=== PATIENT | female | born 1950 | race Asian ===

== ENCOUNTER 2020-12-07 11:34 | Outpatient (REF) | payer MEDICARE, SELFPAY ==
[2020-12-07 11:54] LABS: MANUAL DIFF FLAG NO
[2020-12-07 12:08] LABS: Basophils Absolute Auto 0.1 X10*3/uL (0.0-0.2); Basophils Percent Auto 1.3 % (0-2); Eosinophils Absolute Auto 0.1 X10*3/uL (0.0-0.4); Eosinophils Percent Auto 1.3 % (0-4); Hematocrit 39.1 % (37.0-47.0); Hemoglobin 12.6 g/dl (12.0-16.0); Imm Gran Abs Auto 0.02 X10*3/uL (0.00-0.03); Imm Gran Pct Auto 0.4 % (0.0-0.4); Lymphocytes Percent Auto 18.9 % (20-40); Mean Corpuscular HGB Conc 32.2 g/dl (31.0-35.0); Mean Corpuscular Hemoglobin 32.1 pg (27.0-33.0); Mean Corpuscular Volume 99.7 fL (80.0-98.0); Mean Platelet Volume 9.3 fL (9.4-12.3); Monocytes Absolute Auto 0.5 X10*3/uL (0.1-1.2); Monocytes Percent Auto 8.8 % (2-11); Neutrophils Percent Auto 69.3 % (45-73); Platelet Count 457 X10*3/uL (160-400); Red Blood Count 3.92 X10*6/uL (4.20-5.50); Red Cell Distribution Width 15.2 % (11.0-16.0); White Blood Count 5.3 X10*3/uL (4.8-10.8)
[2020-12-07 12:51] LABS: Anion Gap 11 (12-20); Blood Urea Nitrogen 8 mg/dL (9-16); Calcium 9.2 mg/dL (8.4-10.2); Carbon Dioxide 27 mmol/L (22-29); Chloride 110 mmol/L (96-108); Estimated Glomerular Filt Rate > 60; Glucose Random 107 mg/dL (60-115); Sodium 144 mmol/L (135-145)
[2020-12-07 13:14] LABS: Thyroid Stimulating Hormone 0.44 uIU/mL (0.32-4.0)
== END 2020-12-07 11:35 | disposition home or self-care (01) ==
LOC: HO.LAB 11:34
PROVIDERS: PCP Internal Medicine; Visit Provider Internal Medicine
DX: Z00.00 Encounter for general adult medical examination without abnormal findings (principal); R51.9 Headache, unspecified
CPT/HCPCS: 36415; 80048; 84443; 85025

== ENCOUNTER 2021-06-14 10:21 | Inpatient (IN) | payer MEDICARE, MEDICAID, SELFPAY ==
[2021-06-14 10:29] VITALS: BP 133/90; BP 93/71; PULSE 77; PULSE 98; RESP 16; TEMP 36.9; O2SAT 97; BMI 22.6
[2021-06-14 11:00] VITALS: BP 93/71; PULSE 98; RESP 16; TEMP 36.9; O2SAT 97
--- NOTE | 2021-06-14 11:23 | ED_ITS ---
HPI - Psych General Chief Complaint: Psychiatric Symptoms Stated Complaint: CRISIS CLAUDIASI Time Seen by Provider: 06/14/21 11:23 Source: patient Mode of arrival: ambulatory Limitations: no limitations History of Present Illness HPI Narrative: patient is so depressed she wants to hang herself. her brother just . her husbands heart is very bad and it is only functioning at 15%. Patient thinks she is seeing a spirit coming out of the closet MD complaint: suicidal ideation and feels depressed Onset (ago): week(s) Duration: constant Associated psychiatric symptoms: depression Associated symptoms: denies other symptoms If self harm: admits thoughts of self harm Related Data Previous Rx's Medication Instructions Recorded mirtazapine 7.5 mg tablet 7.5 mg PO BEDTIME 30 days #30 tabs 06/20/21 naltrexone 50 mg tablet 50 mg PO DAILY 30 days #30 tabs 06/20/21 trazodone 50 mg tablet 50 mg PO BEDTIME PRN Insomnia 30 06/20/21 days #30 tabs lorazepam 0.5 mg tablet 0.5 mg PO BID PRN anxiety #60 tabs 07/01/21 Allergies Allergy/AdvReac Type Severity Reaction Status Date / Time No Known Allergies Allergy Verified 07/01/21 14:16 Review of Systems Constitutional: Constitutional: Reports no additional constitutional complaints Eyes: Eyes: Reports no additional eye complaints ENT: Denies dizziness Cardiovascular: Cardiovascular: Reports no additional cardiovascular complaints Respiratory: Respiratory: Reports as per HPI Gastrointestinal: Gastrointestinal: Reports no additional gastrointestinal complaints Genitourinary: Genitourinary: Reports no additional female genitourinary complaints Musculoskeletal: Musculoskeletal: Reports no additional musculoskeletal complaints Integumentary/Breasts: Skin/Breast: Denies rash Neurologic: Reports system reviewed and no additional complaints, except as documented, Denies dizziness and Denies Sensory deficit (Neuro) Psychiatric: Psychiatric: Denies anxiety PMFSH Past Medical History Medical History (Updated 07/01/21 @ 14:33 by Montez Loya MD) Depression, acute Family History Family History (Updated 07/01/21 @ 14:16 by ELY Knight) Other Mental health disorder Social History Social History Household Members: Spouse Housing: House Do you presently have visiting nurse or other home services: No Alcohol intake: current Alcohol intake frequency: other Alcohol type: hard liquor Patient Tobacco Use Status: Never used Tobacco e-Cigarette/Vaping Use: Never Used Second Hand Smoke Exposure: No Substance Use Type: Caffiene service: No Current occupational status: retired Current occupational exposures/hazards: No Sexual orientation: Straight/Heterosexual Cognitive needs: No Hearing needs: No Vision needs: No Physical Exam Vital Signs: Vital Signs: Last Vital Signs Temp 97 F 06/20/21 07:20 Pulse 66 06/20/21 07:20 Resp 16 06/20/21 07:20 BP 127/70 06/20/21 07:20 Pulse Ox 98 06/20/21 07:20 O2 Del Method 06/20/21 07:20 BMI result Body Mass Index 22.6 Const: General: healthy appearing Nutritional Appearance: average body habitus Orientation/consciousness: oriented to person and patient oriented x3 Limitations: no limitations HEENT: Head: Yes normal to inspection Ears: external ears normal General nose exam: Normal external nose present Mouth: Normal oral and palatal mucosa present and oropharynx normal Throat: Yes posterior oropharynx normal Eyes: General: appearance normal, both eyes and all related structures Neck: Other: supple Neck: Yes normal visual inspection Chest: Chest palpation & inspection: normal inspection of the chest Resp: Auscultation: clear to auscultation bilaterally Cardio: Jugular venous distension: no JVD Rate: regular rate Rhythm: regular rhythm Heart sounds: S1 normal heart sound present and S2 normal heart sound present GI: Inspection: Yes normal to inspection Palpation (GI): Soft to palpation, nontender and No hepatosplenomegaly present Auscultation: normal bowel sounds : General: Yes no CVA tenderness Back/Spine/Pelvis: Back: no CVA tenderness Skin: General skin exam: no rashes or lesions noted Neuro: General: oriented to person and patient oriented x3 Cranial nerves: Yes CN's II-XII intact bilaterally Motor exam (neuro): 5/5 motor strength present throughout Sensory Exam: No Sensory deficit (Neuro) Extrem: General: Yes normal to inspection Psych: Appearance: grossly normal Course Reevaluation(s) Reevaluation #1: Patient placed in physician observation at 3:40pm The indication for observation is that the patient needs more time to see if her depression improves or she will need to be admitted. At this time the patient is well developed well nourished, lungs clear, CV RRR, abd nontender, neuro is intact Time: 15:40 MDM - Psych Lab Data Result diagrams: 06/14/21 11:42 06/14/21 11:42 Labs: Lab Results 06/14/21 06/14/21 06/14/21 Range/Units 11:42 11:42 11:42 WBC 3.8 L (4.8-10.8) X10*3/uL RBC 4.66 (4.20-5.50) X10*6/uL Hgb 15.0 (12.0-16.0) g/dl Hct 44.1 (37.0-47.0) % MCV 94.6 (80.0-98.0) fL MCH 32.2 (27.0-33.0) pg MCHC 34.0 (31.0-35.0) g/dl RDW 13.8 (11.0-16.0) % Plt Count 285 D (160-400) X10*3/uL MPV 9.6 (9.4-12.3) fL Immature Gran % (Auto) 0.3 (0.0-0.4) % Neut % (Auto) 47.1 (45-73) % Lymph % (Auto) 36.0 (20-40) % [place] % (Auto) 10.5 (2-11) % Eos % (Auto) 4.5 H (0-4) % Baso % (Auto) 1.6 (0-2) % Lymph # (Auto) 1.4 (1.2-4.9) X10*3/uL [place] # (Auto) 0.4 (0.1-1.2) X10*3/uL Eos # (Auto) 0.2 (0.0-0.4) X10*3/uL Baso # (Auto) 0.1 (0.0-0.2) X10*3/uL Abs Immat Gran (auto) 0.01 (0.00-0.03) X10*3/uL Absolute Neuts (auto) 1.8 L (2.0-8.3) x10*3/uL Absolute Nucleated RBC 0.000 (0.0-0.012) X10*3/uL Nucleated RBC % (auto) 0.0 (0.0-0.2) /100WBC Sodium 141 (135-145) mmol/L Potassium 4.5 (3.3-5.1) mmol/L Chloride 102 (96-108) mmol/L Carbon Dioxide 27 (22-29) mmol/L Anion Gap 17 (12-20) BUN 5 L (9-16) mg/dL Creatinine 0.85 (0.5-1.4) mg/dL Estim Creat Clear Calc 50.9 Estimated GFR > 60 Random Glucose 107 (60-115) mg/dL Calcium 9.6 (8.4-10.2) mg/dL Total Bilirubin 0.3 (0.0-1.0) mg/dL AST 114 H (5-31) U/L ALT 66 H (0-31) U/L Alkaline Phosphatase 80 (39-117) U/L Total Protein 7.9 (6.5-8.0) g/dL Albumin 4.1 (3.5-5.0) g/dL Salicylates < 5.0 L (15-30) mg/dL Urine Opiates Screen (Not Detect) Urine Fentanyl Screen (Not Detect) Acetaminophen < 1 (<30) mcg/mL Ur Barbiturates Screen (Not Detect) Ur Phencyclidine Scrn (Not Detect) Ur Amphetamines Screen (Not Detect) U Benzodiazepines Scrn (Not Detect) Urine Cocaine Screen (Not Detect) U Marijuana (THC) Screen (Not Detect) Ethyl Alcohol 208 mg/dL COVID-19 (CÉSAR) (Negative) COVID-19 Clin Com 06/14/21 06/14/21 Range/Units 13:56 20:49 WBC (4.8-10.8) X10*3/uL RBC (4.20-5.50) X10*6/uL Hgb (12.0-16.0) g/dl Hct (37.0-47.0) % MCV (80.0-98.0) fL MCH (27.0-33.0) pg MCHC (31.0-35.0) g/dl RDW (11.0-16.0) % Plt Count (160-400) X10*3/uL MPV (9.4-12.3) fL Immature Gran % (Auto) (0.0-0.4) % Neut % (Auto) (45-73) % Lymph % (Auto) (20-40) % [place] % (Auto) (2-11) % Eos % (Auto) (0-4) % Baso % (Auto) (0-2) % Lymph # (Auto) (1.2-4.9) X10*3/uL [place] # (Auto) (0.1-1.2) X10*3/uL Eos # (Auto) (0.0-0.4) X10*3/uL Baso # (Auto) (0.0-0.2) X10*3/uL Abs Immat Gran (auto) (0.00-0.03) X10*3/uL Absolute Neuts (auto) (2.0-8.3) x10*3/uL Absolute Nucleated RBC (0.0-0.012) X10*3/uL Nucleated RBC % (auto) (0.0-0.2) /100WBC Sodium (135-145) mmol/L Potassium (3.3-5.1) mmol/L Chloride (96-108) mmol/L Carbon Dioxide (22-29) mmol/L Anion Gap (12-20) BUN (9-16) mg/dL Creatinine (0.5-1.4) mg/dL Estim Creat Clear Calc Estimated GFR Random Glucose (60-115) mg/dL Calcium (8.4-10.2) mg/dL Total Bilirubin (0.0-1.0) mg/dL AST (5-31) U/L ALT (0-31) U/L Alkaline Phosphatase (39-117) U/L Total Protein (6.5-8.0) g/dL Albumin (3.5-5.0) g/dL Salicylates (15-30) mg/dL Urine Opiates Screen Not Detected (Not Detect) Urine Fentanyl Screen Not Detected (Not Detect) Acetaminophen (<30) mcg/mL Ur Barbiturates Screen Not Detected (Not Detect) Ur Phencyclidine Scrn Not Detected (Not Detect) Ur Amphetamines Screen Not Detected (Not Detect) U Benzodiazepines Scrn Not Detected (Not Detect) Urine Cocaine Screen Not Detected (Not Detect) U Marijuana (THC) Screen Not Detected (Not Detect) Ethyl Alcohol mg/dL COVID-19 (CÉSAR) Negative (Negative) COVID-19 Clin Com See Note Discharge Plan Discharge Clinical Impression: Depression Patient Disposition: Admitted As Inpatient Interventions: Admission Worksheet (ED) Last Done: 06/14/21 21:50 Discharge Date/Time: 06/14/21 21:51
[2021-06-14 11:47] LABS: MANUAL DIFF FLAG NO
[2021-06-14 11:51] LABS: Basophils Absolute Auto 0.1 X10*3/uL (0.0-0.2); Basophils Percent Auto 1.6 % (0-2); Eosinophils Absolute Auto 0.2 X10*3/uL (0.0-0.4); Eosinophils Percent Auto 4.5 % (0-4); Hematocrit 44.1 % (37.0-47.0); Imm Gran Abs Auto 0.01 X10*3/uL (0.00-0.03); Imm Gran Pct Auto 0.3 % (0.0-0.4); Lymphocytes Absolute Auto 1.4 X10*3/uL (1.2-4.9); Mean Corpuscular Hemoglobin 32.2 pg (27.0-33.0); Mean Corpuscular Volume 94.6 fL (80.0-98.0); Mean Platelet Volume 9.6 fL (9.4-12.3); Monocytes Absolute Auto 0.4 X10*3/uL (0.1-1.2); Monocytes Percent Auto 10.5 % (2-11); Neutrophils Absolute Auto 1.8 x10*3/uL (2.0-8.3); Neutrophils Percent Auto 47.1 % (45-73); Platelet Count 285 X10*3/uL (160-400); Red Blood Count 4.66 X10*6/uL (4.20-5.50); Red Cell Distribution Width 13.8 % (11.0-16.0); White Blood Count 3.8 X10*3/uL (4.8-10.8)
--- NOTE | 2021-06-14 11:54 | PC.NURSE ---
Patient reports she has never drank alcohol until recently. She states she now drinks every day to make her depression better . The patient did not state how much she drinks daily but reports she drinks champagne daily.
[2021-06-14 12:01] LABS: Ethanol 208 mg/dL
[2021-06-14 12:07] LABS: Acetaminophen LAB < 1 mcg/mL (<30); Alanine Aminotransferase 66 U/L (0-31); Albumin Level 4.1 g/dL (3.5-5.0); Alkaline Phosphatase 80 U/L (39-117); Anion Gap 17 (12-20); Aspartate Amino Transferase 114 U/L (5-31); Bilirubin Total 0.3 mg/dL (0.0-1.0); Blood Urea Nitrogen 5 mg/dL (9-16); Calcium 9.6 mg/dL (8.4-10.2); Carbon Dioxide 27 mmol/L (22-29); Chloride 102 mmol/L (96-108); Creatinine Clr Calc Pharmacy 50.9; Estimated Glomerular Filt Rate > 60; Glucose Random 107 mg/dL (60-115); Potassium 4.5 mmol/L (3.3-5.1); Salicylate < 5.0 mg/dL (15-30); Sodium 141 mmol/L (135-145); Total Protein 7.9 g/dL (6.5-8.0)
[2021-06-14 14:21] LABS: Amphetamine Screen Urine Not Detected (Not Detect); Barbiturates, Urine Not Detected (Not Detect); Benzodiazepines Screen Urine Not Detected (Not Detect); Cannabinoid Screen Urine Not Detected (Not Detect); Cocaine Screen Urine Not Detected (Not Detect); Fentanyl, urine Not Detected (Not Detect); Opiate Screen Urine Not Detected (Not Detect); Phencyclidine Screen Urine Not Detected (Not Detect)
[2021-06-14 16:45] VITALS: BP 135/79; PULSE 99; RESP 19; TEMP 37.1; O2SAT 96
--- NOTE | 2021-06-14 17:53 | MHC.CARE ---
After speaking with pt's , pt is being placed on a section 12a as he reports significant safety concerns and that pt has been making statements about hanging herself. He is advocating for pt to get treatment at this time.
[2021-06-14] MEDS: LORazepam 1 MG TABLET 2 MG PO (20:50)
[2021-06-14 21:09] LABS: COVID-19 Test Negative (Negative)
[2021-06-14 23:16] VITALS: BP 159/104; PULSE 95; RESP 18; TEMP 36.7; O2SAT 97
[2021-06-14 23:21] VITALS: BMI 21.9
--- NOTE | 2021-06-15 02:51 | PC.ADMIT ---
71 year old [place] female was admitted from the [facility] ED for Depression, secondary to making Suicidal statements on a recorded line. 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 She reported intermittent SI with various plans and reported that she wanted to be in a casket. Pt arrived on the unit via wheel chair accompanied by security at 21:20. Pt signed a CV and April Castro was notified of the admission, put in the transfer orders. Nurse to Nurse was completed prior to admission.Upon admission, pt denied SI, Pain and said she feels safe here. Pt is A & O x4, has no medical History. Skin intact, warm and dry, no open areas or edema noted. Pt has a small bruise on the right antecubital area, post IV site. Per pt report, she wears eye glasses but were not in her possession. Pt signed all admission paperwork and was cooperative with the admission process. Treatment plan was initiated.
[2021-06-15 07:20] VITALS: BP 128/89; PULSE 96; RESP 16; TEMP 36.6; O2SAT 99
[2021-06-15 08:19] LABS: Cholesterol 229 mg/dL; HDL Cholesterol 67 mg/dL; LDL Cholesterol Calculated 147 mg/dl; Magnesium 1.8 mg/dL (1.6-2.6); Triglycerides 78 mg/dL
[2021-06-15 08:32] LABS: Estimated Average Glucose 105 mg/dL; Hemoglobin A1c % 5.3 %
[2021-06-15 08:40] LABS: Free T4 (Free Thyroxine) 1.49 ng/dL (0.71-1.85); Thyroid Stimulating Hormone 0.65 uIU/mL (0.32-4.0)
[2021-06-15 09:06] LABS: Folate 11.8 ng/mL (> or = 4.0); Vitamin B12 443 pg/mL (200-900)
--- NOTE | 2021-06-15 13:21 | HO.PSYADMNOT ---
HPI Date of Service: 06/15/21 Chief Complaint: Depression,SI Sources of Information: patient interviewed, chart reviewed and crisis/core team assessment reviewed HPI Subjective Notes: [place] Warning and Conditional Voluntary Narrative: The patient has 71-year-old patient female from [facility], , mother of 2 adult children, living with her , referred from the emergency room for suicidal ideation. The patient reported that she has been feeling depressed for several months after her was very sick and impaired and she became the primary caregiver. She complained of depressed mood, and only a, lack of energy, feelings of hopelessness and worthlessness. She also admitted that she has been drinking more alcohol than usual but she denies withdrawal symptoms or cravings at this moment. The day of the admission to the emergency room, adept specimen collector called her and she was very dysphoric, she also admitted that she was intoxicated with alcohol and she verbalized suicidal ideation. The depth specimen collector called 911, EMS was sent to her home and she was brought into this facility for assessment. The crisis team checked her, her blood alcohollevel was over 200 mg g per dL. On interview, the patient reports that she feels overwhelmed she adamantly denies psychotic symptoms and she is able to contract for safety in the facility. She has never been admitted into the hospital for psychiatric reasons before. Past Psychiatric History: Denies prior contact, her primary care physician refer her to outpatient services Medical Evaluation Reviewed: Yes [facility] Medical History Anxiety Depression, acute Family History: denies Social History: the patient is , she is an immigrant from [facility], she has 2 adult children. She lives with her and she has become the primary caregiver. Substance History: The patient reported that she started drinking alcohol just recently. She denies other drugs. She denies history of detox or rehabs Trauma History: refused to elaborate Diagnostics Vital Signs (24Hr): Vital Signs - 24 hr 06/14/21 16:45 06/14/21 23:16 06/15/21 07:20 Temperature 98.8 F 98.1 F 97.8 F Pulse Rate 99 95 96 Respiratory Rate 19 18 16 Blood Pressure 135/79 159/104 H 128/89 Pulse Oximetry 96 97 99 BMI result Body Mass Index 21.9 Labs Results: 06/14/21 11:42 06/14/21 11:42 Labs: Laboratory Results - last 48 hr 06/14/21 06/14/21 06/14/21 11:42 11:42 11:42 WBC 3.8 L RBC 4.66 Hgb 15.0 Hct 44.1 MCV 94.6 MCH 32.2 MCHC 34.0 RDW 13.8 Plt Count 285 D MPV 9.6 Immature Gran % (Auto) 0.3 Neut % (Auto) 47.1 Lymph % (Auto) 36.0 [place] % (Auto) 10.5 Eos % (Auto) 4.5 H Baso % (Auto) 1.6 Lymph # (Auto) 1.4 [place] # (Auto) 0.4 Eos # (Auto) 0.2 Baso # (Auto) 0.1 Abs Immat Gran (auto) 0.01 Absolute Neuts (auto) 1.8 L Absolute Nucleated RBC 0.000 Nucleated RBC % (auto) 0.0 Sodium 141 Potassium 4.5 Chloride 102 Carbon Dioxide 27 Anion Gap 17 BUN 5 L Creatinine 0.85 Estim Creat Clear Calc 50.9 Estimated GFR > 60 Random Glucose 107 Estimat Average Glucose Hemoglobin A1c % Calcium 9.6 Magnesium Total Bilirubin 0.3 AST 114 H ALT 66 H Alkaline Phosphatase 80 Total Protein 7.9 Albumin 4.1 Triglycerides Cholesterol LDL Cholesterol, Calc HDL Cholesterol Vitamin B12 Folate TSH Free T4 Salicylates < 5.0 L Urine Opiates Screen Urine Fentanyl Screen Acetaminophen < 1 Ur Barbiturates Screen Ur Phencyclidine Scrn Ur Amphetamines Screen U Benzodiazepines Scrn Urine Cocaine Screen U Marijuana (THC) Screen Ethyl Alcohol 208 COVID-19 (CÉSAR) COVID-19 Clin Com 06/14/21 06/14/21 06/15/21 13:56 20:49 07:50 WBC RBC Hgb Hct MCV MCH MCHC RDW Plt Count MPV Immature Gran % (Auto) Neut % (Auto) Lymph % (Auto) [place] % (Auto) Eos % (Auto) Baso % (Auto) Lymph # (Auto) [place] # (Auto) Eos # (Auto) Baso # (Auto) Abs Immat Gran (auto) Absolute Neuts (auto) Absolute Nucleated RBC Nucleated RBC % (auto) Sodium Potassium Chloride Carbon Dioxide Anion Gap BUN Creatinine Estim Creat Clear Calc Estimated GFR Random Glucose Estimat Average Glucose 105 Hemoglobin A1c % 5.3 Calcium Magnesium Total Bilirubin AST ALT Alkaline Phosphatase Total Protein Albumin Triglycerides Cholesterol LDL Cholesterol, Calc HDL Cholesterol Vitamin B12 Folate TSH Free T4 Salicylates Urine Opiates Screen Not Detected Urine Fentanyl Screen Not Detected Acetaminophen Ur Barbiturates Screen Not Detected Ur Phencyclidine Scrn Not Detected Ur Amphetamines Screen Not Detected U Benzodiazepines Scrn Not Detected Urine Cocaine Screen Not Detected U Marijuana (THC) Screen Not Detected Ethyl Alcohol COVID-19 (CÉSAR) Negative COVID-19 Clin Com See Note 06/15/21 06/15/21 07:50 07:50 WBC RBC Hgb Hct MCV MCH MCHC RDW Plt Count MPV Immature Gran % (Auto) Neut % (Auto) Lymph % (Auto) [place] % (Auto) Eos % (Auto) Baso % (Auto) Lymph # (Auto) [place] # (Auto) Eos # (Auto) Baso # (Auto) Abs Immat Gran (auto) Absolute Neuts (auto) Absolute Nucleated RBC Nucleated RBC % (auto) Sodium Potassium Chloride Carbon Dioxide Anion Gap BUN Creatinine Estim Creat Clear Calc Estimated GFR Random Glucose Estimat Average Glucose Hemoglobin A1c % Calcium Magnesium 1.8 Total Bilirubin AST ALT Alkaline Phosphatase Total Protein Albumin Triglycerides 78 Cholesterol 229 LDL Cholesterol, Calc 147 HDL Cholesterol 67 Vitamin B12 443 Folate 11.8 TSH 0.65 Free T4 1.49 Salicylates Urine Opiates Screen Urine Fentanyl Screen Acetaminophen Ur Barbiturates Screen Ur Phencyclidine Scrn Ur Amphetamines Screen U Benzodiazepines Scrn Urine Cocaine Screen U Marijuana (THC) Screen Ethyl Alcohol COVID-19 (CÉSAR) COVID-19 Clin Com Meds/Allergies Meds Home Medications Acetaminophen (Acetaminophen 325 Mg Tablet) 650 mg PO Q6H PRN PRN Reason: Headache/Pain Mild Scale (1-3) Al Hydroxide/Mg Hydroxide (Magnesium Hydrox/Alum Hydrox 30 Ml Oral.Susp) 30 ml PO Q6H PRN PRN Reason: Heartburn/Nausea Hydroxyzine HCl (Hydroxyzine Hcl 25 Mg Tablet) 25 mg PO Q6H PRN PRN Reason: Anxiety Magnesium Hydroxide (Milk Of Magnesia 30 Ml Oral.Susp) 30 ml PO DAILY PRN PRN Reason: Constipation Trazodone HCl (Trazodone Hcl 50 Mg Tablet) 50 mg PO BEDTIME PRN PRN Reason: Insomnia Allergies Allergies Allergy/AdvReac Type Severity Reaction Status Date / Time No Known Allergies Allergy Verified 05/03/21 10:21 Mental Status Exam Mental Status Exam Patient Appearance: Appropriate Patient Orientation: Person, Place and Situation Level of Consciousness: Awake Patient Behavior: Cooperative Mood Description: Withdrawn and Depressed Affect Description: Constricted Patient Cognition Impaired: No Ability to Follow Directions: Good Speech Pattern: Clear Hallucinations: None Delusions: Not Present Thought Process: Linear Thought Content: positive for [place], positive for Goal Oriented and positive for Poverty of Content Judgement: Fair Assessment & Plan Assessment & Plan (1) Depression: Status: Acute Code(s): F32.A - Depression, unspecified (2) Alcohol use disorder, moderate, dependence: Status: Acute Code(s): F10.20 - Alcohol dependence, uncomplicated Plan the patient is an female, , with a long history of anxiety depression with a recent concomitant use abuse of alcohol who was admitted into this facility for suicidal ideation in the context of several psychosocial stressors such as financial constraints and being the primary caregiver her who is very sick. Plan 1. Gather collateral information. 2. Follow results of blood work. 3. Start Remeron 7.5 mg p.o. q.h.s. to target anxiety, depression and insomnia. Patient educated on: diagnosis, substance abuse and therapeutic strategies Informed Consent: understands Reason for continued inpatient stay Substantial Risk for: harm to self, inability to function, rapid decompensation and med/psych decompensation
[2021-06-15 19:30] VITALS: BP 161/74; PULSE 89; RESP 18; TEMP 36.4; O2SAT 99
[2021-06-15] MEDS: Mirtazapine 7.5 MG TABLET PO (20:16)
[2021-06-15] MEDS: traZODone HCL 50 MG TABLET PO (20:47)
[2021-06-16 07:00] VITALS: BMI 21.9
[2021-06-16 07:10] VITALS: BP 125/88; PULSE 84; RESP 16; TEMP 36.8; O2SAT 99
[2021-06-16] MEDS: hydrOXYzine HCL 25 MG TABLET PO (12:16)
--- NOTE | 2021-06-16 14:48 | P.PNPSI_ITS ---
Subjective Subjective Date of Service: 06/16/21 Reason For Visit: Depression,SI Subjective Notes: 3 Day Interim History: The nursing staff reported the patient is and three day notice since she was discharged tomorrow. The staff explained her about a three day notice and her implications. On interview the patient minimized her alcohol use disorder. She denies side effects Mental Status Exam Mental Status Exam Patient Appearance: Well Grooomed Patient Orientation: Person, Place and Situation Level of Consciousness: Awake Patient Behavior: Cooperative and Suspicious Mood Description: Constricted Affect Description: Calm Patient Cognition Impaired: No Ability to Follow Directions: Good Speech Pattern: Clear Hallucinations: None Delusions: Not Present Thought Process: Linear Thought Content: positive for Circumstantial Judgement: Fair Diagnostics Vital Signs (24Hr): Vital Signs - 24 hr 06/15/21 19:30 06/16/21 07:10 Temperature 97.5 F 98.2 F Pulse Rate 89 84 Respiratory Rate 18 16 Blood Pressure 161/74 H 125/88 Pulse Oximetry 99 99 BMI result Body Mass Index 21.9 Labs Results: 06/14/21 11:42 06/14/21 11:42 Labs: Laboratory Results - last 48 hr 06/14/21 06/15/21 06/15/21 20:49 07:50 07:50 Estimat Average Glucose 105 Hemoglobin A1c % 5.3 Magnesium 1.8 Triglycerides 78 Cholesterol 229 LDL Cholesterol, Calc 147 HDL Cholesterol 67 Vitamin B12 Folate TSH 0.65 Free T4 1.49 COVID-19 (CÉSAR) Negative COVID-19 Clin Com See Note 06/15/21 07:50 Estimat Average Glucose Hemoglobin A1c % Magnesium Triglycerides Cholesterol LDL Cholesterol, Calc HDL Cholesterol Vitamin B12 443 Folate 11.8 TSH Free T4 COVID-19 (CÉSAR) COVID-19 Clin Com Medications Medications Current Medications Acetaminophen (Acetaminophen 325 Mg Tablet) 650 mg PO Q6H PRN PRN Reason: Headache/Pain Mild Scale (1-3) Al Hydroxide/Mg Hydroxide (Magnesium Hydrox/Alum Hydrox 30 Ml Oral.Susp) 30 ml PO Q6H PRN PRN Reason: Heartburn/Nausea Hydroxyzine HCl (Hydroxyzine Hcl 25 Mg Tablet) 25 mg PO Q6H PRN PRN Reason: Anxiety Last Admin: 06/16/21 12:16 Dose: 25 mg Documented by: Magnesium Hydroxide (Milk Of Magnesia 30 Ml Oral.Susp) 30 ml PO DAILY PRN PRN Reason: Constipation Mirtazapine (Mirtazapine 7.5 Mg Tablet) 7.5 mg PO BEDTIME DAV Last Admin: 06/15/21 20:16 Dose: 7.5 mg Documented by: Naltrexone HCl (Naltrexone Hcl 50 Mg Tablet) 50 mg PO DAILY DAV Trazodone HCl (Trazodone Hcl 50 Mg Tablet) 50 mg PO BEDTIME PRN PRN Reason: Insomnia Last Admin: 06/15/21 20:47 Dose: 50 mg Documented by: Allergies Allergies Allergy/AdvReac Type Severity Reaction Status Date / Time No Known Allergies Allergy Verified 05/03/21 10:21 Assessment & Plan Assessment & Plan (1) Depression: Status: Acute Code(s): F32.A - Depression, unspecified (2) Alcohol use disorder, moderate, dependence: Status: Acute Code(s): F10.20 - Alcohol dependence, uncomplicated Plan the patient is an female, , with a long history of anxiety de pression with a recent concomitant use abuse of alcohol who was admitted into this facility for suicidal ideation in the context of several psychosocial stressors such as financial constraints and being the primary caregiver her who is very sick. Plan 1. Gather collateral information. 2. Follow results of blood work. 3. Start Remeron 7.5 mg p.o. q.h.s. to target anxiety, depression and insomnia. 4. Start naltrexone I spent ___20___ minutes with the patient and/or on the patient floor today, greater than?50% of which was spent counseling/coordinating care. Reason for contiued inpatient stay Substantial Risk for: inability to function, rapid decompensation and med/psych decompensation
[2021-06-16 18:00] VITALS: BP 133/87; PULSE 87; RESP 16; TEMP 36.7; O2SAT 97
[2021-06-16] MEDS: Mirtazapine 7.5 MG TABLET PO (20:45)
[2021-06-16] MEDS: traZODone HCL 50 MG TABLET PO (21:28)
[2021-06-17 08:00] VITALS: BP 130/78; PULSE 85; RESP 18; TEMP 36.2; O2SAT 99
[2021-06-17] MEDS: Naltrexone HCl 50 MG TABLET PO (08:33)
--- NOTE | 2021-06-17 10:58 | P.PNPSI_ITS ---
Subjective Subjective Date of Service: 06/17/21 Reason For Visit: Depression,SI Subjective Notes: Conditional Voluntary Interim History: The nursing staff reported the patient gives conflictual reports. Yesterday she complained of feeling very well and she needs to help her but she reported to the staff that she was feeling very sad and overwhelmed with the help that she has to provide to her . On interview, the patient minimized her consumption of alcohol. The licensed master social worker has arrange a family meeting for early next week before discharge. Medication Compliance: Yes Review of Systems Acute medical concerns: No Medical Review of Systems: unchanged Mental Status Exam Mental Status Exam Patient Appearance: Appropriate Patient Orientation: Person and Situation Level of Consciousness: Awake and Alert Patient Behavior: Cooperative Mood Description: Calm Affect Description: Constricted Patient Cognition Impaired: No Ability to Follow Directions: Good Speech Pattern: Clear Hallucinations: None Delusions: Not Present Thought Process: Distracted and Evasive Thought Content: positive for Circumstantial Judgement: Fair Diagnostics Vital Signs (24Hr): Vital Signs - 24 hr 06/16/21 18:00 Temperature 98.1 F Pulse Rate 87 Respiratory Rate 16 Blood Pressure 133/87 Pulse Oximetry 97 BMI result Body Mass Index 21.9 Labs Results: 06/14/21 11:42 06/14/21 11:42 Medications Medications Current Medications Acetaminophen (Acetaminophen 325 Mg Tablet) 650 mg PO Q6H PRN PRN Reason: Headache/Pain Mild Scale (1-3) Al Hydroxide/Mg Hydroxide (Magnesium Hydrox/Alum Hydrox 30 Ml Oral.Susp) 30 ml PO Q6H PRN PRN Reason: Heartburn/Nausea Hydroxyzine HCl (Hydroxyzine Hcl 25 Mg Tablet) 25 mg PO Q6H PRN PRN Reason: Anxiety Last Admin: 06/16/21 12:16 Dose: 25 mg Documented by: Magnesium Hydroxide (Milk Of Magnesia 30 Ml Oral.Susp) 30 ml PO DAILY PRN PRN Reason: Constipation Mirtazapine (Mirtazapine 7.5 Mg Tablet) 7.5 mg PO BEDTIME DAV Last Admin: 06/16/21 20:45 Dose: 7.5 mg Documented by: Naltrexone HCl (Naltrexone Hcl 50 Mg Tablet) 50 mg PO DAILY DAV Last Admin: 06/17/21 08:33 Dose: 50 mg Documented by: Trazodone HCl (Trazodone Hcl 50 Mg Tablet) 50 mg PO BEDTIME PRN PRN Reason: Insomnia Last Admin: 06/16/21 21:28 Dose: 50 mg Documented by: Allergies Allergies Allergy/AdvReac Type Severity Reaction Status Date / Time No Known Allergies Allergy Verified 05/03/21 10:21 Assessment & Plan Assessment & Plan (1) Depression: Status: Acute Code(s): F32.A - Depression, unspecified (2) Alcohol use disorder, moderate, dependence: Status: Acute Code(s): F10.20 - Alcohol dependence, uncomplicated Plan the patient is an female, , with a long history of anxiety depression with a recent concomitant use abuse of alcohol who was admitted into this facility for suicidal ideation in the context of several psychosocial stressors such as financial constraints and being the primary caregiver her who is very sick. Plan 1. Gather collateral information. 2. Follow results of blood work, no changes 3. Continue same treatment I spent ___20___ minutes with the patient and/or on the patient floor today, greater than?50% of which was spent counseling/coordinating care. Reason for contiued inpatient stay Substantial Risk for: inability to function, rapid decompensation and med/psych decompensation
[2021-06-17] MEDS: Milk of Magnesia 30 ML ORAL.SUSP PO (14:10)
[2021-06-17 18:00] VITALS: BP 130/79; PULSE 74; RESP 18; TEMP 36.6; O2SAT 100
[2021-06-17] MEDS: Mirtazapine 7.5 MG TABLET PO (20:20)
[2021-06-17] MEDS: traZODone HCL 50 MG TABLET PO (20:21)
[2021-06-18 08:00] VITALS: BP 127/73; PULSE 70; RESP 16; TEMP 36.4; O2SAT 98
[2021-06-18] MEDS: Naltrexone HCl 50 MG TABLET PO (08:23)
--- NOTE | 2021-06-18 11:33 | HO.PSYCHPN ---
Subjective Subjective Date of Service: 06/18/21 Reason For Visit: Depression,SI Interim History: pt reports she is doing fine, discharging sunday. upset to have been put here in the first place. very wordy, goes on spontaneous tangent regarding her ill and all of the things she does at home, his medical history, their personal history together, etc. no requests from MD for today. per staff, slept well. pleasant, cheerful, talkative. no dep, no SI. D/C sunday. Mental Status Exam Mental Status Exam Patient Appearance: Appropriate Patient Orientation: Person and Situation Level of Consciousness: Awake and Alert Patient Behavior: Cooperative Mood Description: Calm Affect Description: Appropriate Patient Cognition Impaired: No Ability to Follow Directions: Good Speech Pattern: Clear Hallucinations: None Delusions: Not Present Thought Process: Distracted and Evasive (spontaneously tangential) Thought Content: positive for Circumstantial Judgement: Fair Diagnostics Vital Signs (24Hr): Vital Signs - 24 hr 06/17/21 18:00 06/18/21 08:00 Temperature 97.8 F 97.5 F Pulse Rate 74 70 Respiratory Rate 18 16 Blood Pressure 130/79 127/73 Pulse Oximetry 100 98 BMI result Body Mass Index 21.9 Labs Results: 06/14/21 11:42 06/14/21 11:42 Medications Medications Current Medications Acetaminophen (Acetaminophen 325 Mg Tablet) 650 mg PO Q6H PRN PRN Reason: Headache/Pain Mild Scale (1-3) Al Hydroxide/Mg Hydroxide (Magnesium Hydrox/Alum Hydrox 30 Ml Oral.Susp) 30 ml PO Q6H PRN PRN Reason: Heartburn/Nausea Hydroxyzine HCl (Hydroxyzine Hcl 25 Mg Tablet) 25 mg PO Q6H PRN PRN Reason: Anxiety Last Admin: 06/16/21 12:16 Dose: 25 mg Documented by: Magnesium Hydroxide (Milk Of Magnesia 30 Ml Oral.Susp) 30 ml PO DAILY PRN PRN Reason: Constipation Last Admin: 06/17/21 14:10 Dose: 30 ml Documented by: Mirtazapine (Mirtazapine 7.5 Mg Tablet) 7.5 mg PO BEDTIME DAV Last Admin: 06/17/21 20:20 Dose: 7.5 mg Documented by: Naltrexone HCl (Naltrexone Hcl 50 Mg Tablet) 50 mg PO DAILY DAV Last Admin: 06/18/21 08:23 Dose: 50 mg Documented by: Trazodone HCl (Trazodone Hcl 50 Mg Tablet) 50 mg PO BEDTIME PRN PRN Reason: Insomnia Last Admin: 06/17/21 20:21 Dose: 50 mg Documented by: Allergies Allergies Allergy/AdvReac Type Severity Reaction Status Date / Time No Known Allergies Allergy Verified 05/03/21 10:21 Assessment & Plan Assessment & Plan (1) Depression: Status: Acute Code(s): F32.A - Depression, unspecified (2) Alcohol use disorder, moderate, dependence: Status: Acute Code(s): F10.20 - Alcohol dependence, uncomplicated Plan the patient is an female, , with a long history of anxiety depression with a recent concomitant use abuse of alcohol who was admitted into this facility for suicidal ideation in the context of several psychosocial stressors such as financial constraints and being the primary caregiver her who is very sick. Plan 1. Gather collateral information. 2. Follow results of blood work, no changes 3. Continue same treatment 3-day up sunday, discharge sunday. I spent __20____ minutes with the patient and/or on the patient floor today, greater than?50% of which was spent counseling/coordinating care. Reason for contiued inpatient stay Substantial Risk for: harm to self, inability to function and rapid decompensation
[2021-06-18] MEDS: hydrOXYzine HCL 25 MG TABLET PO (12:59)
[2021-06-18 18:00] VITALS: BP 130/83; PULSE 73; RESP 18; TEMP 37; O2SAT 98
[2021-06-18] MEDS: Mirtazapine 7.5 MG TABLET PO (20:29)
[2021-06-18] MEDS: traZODone HCL 50 MG TABLET PO (20:29)
[2021-06-19 08:00] VITALS: BP 144/85; PULSE 80; RESP 16; TEMP 36.3; O2SAT 97
[2021-06-19] MEDS: Naltrexone HCl 50 MG TABLET PO (08:32)
--- NOTE | 2021-06-19 10:52 | HO.PSYCHPN ---
Subjective Subjective Date of Service: 06/19/21 Reason For Visit: Depression,SI Interim History: pt reports she is feeling well, looking forward to discharge tomorrow, believes SW is arranging for cleaning help for her. discusses her 's medical problems and her need to be there to help him. also reflects with some insight that she needs to take care of herself well, first and foremost. per staff, cooperative, slept well, discharging tomorrow. Mental Status Exam Mental Status Exam Patient Appearance: Appropriate Patient Orientation: Person and Situation Level of Consciousness: Awake and Alert Patient Behavior: Cooperative Mood Description: Calm Affect Description: Appropriate Patient Cognition Impaired: No Ability to Follow Directions: Good Speech Pattern: Clear Hallucinations: None Delusions: Not Present Thought Process: Intact and Rumination Thought Content: positive for Circumstantial Judgement: Fair Diagnostics Vital Signs (24Hr): Vital Signs - 24 hr 06/18/21 18:00 06/19/21 08:00 Temperature 98.6 F 97.4 F Pulse Rate 73 80 Respiratory Rate 18 16 Blood Pressure 130/83 144/85 H Pulse Oximetry 98 97 BMI result Body Mass Index 21.9 Labs Results: 06/14/21 11:42 06/14/21 11:42 Medications Medications Current Medications Acetaminophen (Acetaminophen 325 Mg Tablet) 650 mg PO Q6H PRN PRN Reason: Headache/Pain Mild Scale (1-3) Al Hydroxide/Mg Hydroxide (Magnesium Hydrox/Alum Hydrox 30 Ml Oral.Susp) 30 ml PO Q6H PRN PRN Reason: Heartburn/Nausea Hydroxyzine HCl (Hydroxyzine Hcl 25 Mg Tablet) 25 mg PO Q6H PRN PRN Reason: Anxiety Last Admin: 06/18/21 12:59 Dose: 25 mg Documented by: Magnesium Hydroxide (Milk Of Magnesia 30 Ml Oral.Susp) 30 ml PO DAILY PRN PRN Reason: Constipation Last Admin: 06/17/21 14:10 Dose: 30 ml Documented by: Mirtazapine (Mirtazapine 7.5 Mg Tablet) 7.5 mg PO BEDTIME DAV Last Admin: 06/18/21 20:29 Dose: 7.5 mg Documented by: Naltrexone HCl (Naltrexone Hcl 50 Mg Tablet) 50 mg PO DAILY DAV Last Admin: 06/19/21 08:32 Dose: 50 mg Documented by: Trazodone HCl (Trazodone Hcl 50 Mg Tablet) 50 mg PO BEDTIME PRN PRN Reason: Insomnia Last Admin: 06/18/21 20:29 Dose: 50 mg Documented by: Allergies Allergies Allergy/AdvReac Type Severity Reaction Status Date / Time No Known Allergies Allergy Verified 05/03/21 10:21 Assessment & Plan Assessment & Plan (1) Depression: Status: Acute Code(s): F32.A - Depression, unspecified (2) Alcohol use disorder, moderate, dependence: Status: Acute Code(s): F10.20 - Alcohol dependence, uncomplicated Plan the patient is an female, , with a long history of anxiety depression with a recent concomitant use abuse of alcohol who was admitted into this facility for suicidal ideation in the context of several psychosocial stressors such as financial constraints and being the primary caregiver her who is very sick. Plan 1. Gather collateral information. 2. Follow results of blood work, no changes 3. Continue same treatment 3-day up sunday, discharge sunday. I spent ___20___ minutes with the patient and/or on the patient floor today, greater than?50% of which was spent counseling/coordinating care. Reason for contiued inpatient stay Substantial Risk for: stable for discharge
[2021-06-19 18:00] VITALS: BP 168/90; PULSE 66; RESP 18; TEMP 35.9; O2SAT 100
[2021-06-19] MEDS: Mirtazapine 7.5 MG TABLET PO (19:54)
[2021-06-19] MEDS: traZODone HCL 50 MG TABLET PO (19:56)
[2021-06-20 07:20] VITALS: BP 127/70; PULSE 66; RESP 16; TEMP 36.1; O2SAT 98
--- NOTE | 2021-06-20 07:35 | P.DS_ITS ---
DS: Providers Provider Date of Service: 06/20/21 Date of admission: 06/14/21 21:41 Date of discharge: 06/20/21 Primary care physician: Cain Physician Attending physician on admission: Phan Tavares Attending physician on discharge: Phan aTvares DS: Diagnosis Discharge Diagnosis (1) Depression: Status: Acute (2) Alcohol use disorder, moderate, dependence: Status: Acute DS: Medications Discharge Medications Home Medications: Previous Rx's Medication Instructions Recorded paroxetine HCl 40 mg tablet 40 mg PO DAILY #90 tab 01/07/21 lorazepam 0.5 mg tablet 0.5 mg PO BID PRN #60 tab 03/30/21 Mental Status Exam Mental Status Exam Patient Appearance: Well Grooomed Patient Orientation: Person, Place and Situation Level of Consciousness: Awake and Appropriate Patient Behavior: Appropriate and Cooperative Mood Description: Calm Affect Description: Constricted Patient Cognition Impaired: No Ability to Follow Directions: Good Speech Pattern: Clear Hallucinations: None Delusions: Not Present Thought Process: Linear Thought Content: positive for Circumstantial Judgement: Fair Data Data Completed and Pending Completed studies during hospitalization [Text1]: 06/14/21 06/14/21 06/14/21 11:42 11:42 11:42 WBC 3.8 L RBC 4.66 Hgb 15.0 Hct 44.1 MCV 94.6 MCH 32.2 MCHC 34.0 RDW 13.8 Plt Count 285 D MPV 9.6 Immature Gran % (Auto) 0.3 Neut % (Auto) 47.1 Lymph % (Auto) 36.0 Charlton % (Auto) 10.5 Eos % (Auto) 4.5 H Baso % (Auto) 1.6 Lymph # (Auto) 1.4 Charlton # (Auto) 0.4 Eos # (Auto) 0.2 Baso # (Auto) 0.1 Abs Immat Gran (auto) 0.01 Absolute Neuts (auto) 1.8 L Absolute Nucleated RBC 0.000 Nucleated RBC % (auto) 0.0 Sodium 141 Potassium 4.5 Chloride 102 Carbon Dioxide 27 Anion Gap 17 BUN 5 L Creatinine 0.85 Estim Creat Clear Calc 50.9 Estimated GFR > 60 Random Glucose 107 Estimat Average Glucose Hemoglobin A1c % Calcium 9.6 Magnesium Total Bilirubin 0.3 AST 114 H ALT 66 H Alkaline Phosphatase 80 Total Protein 7.9 Albumin 4.1 Triglycerides Cholesterol LDL Cholesterol, Calc HDL Cholesterol Vitamin B12 Folate TSH Free T4 Salicylates < 5.0 L Urine Opiates Screen Urine Fentanyl Screen Acetaminophen < 1 Ur Barbiturates Screen Ur Phencyclidine Scrn Ur Amphetamines Screen U Benzodiazepines Scrn Urine Cocaine Screen U Marijuana (THC) Screen Ethyl Alcohol 208 COVID-19 ([facility]) COVID-19 Clin Com 06/14/21 06/14/21 06/15/21 13:56 20:49 07:50 WBC RBC Hgb Hct MCV MCH MCHC RDW Plt Count MPV Immature Gran % (Auto) Neut % (Auto) Lymph % (Auto) Charlton % (Auto) Eos % (Auto) Baso % (Auto) Lymph # (Auto) Charlton # (Auto) Eos # (Auto) Baso # (Auto) Abs Immat Gran (auto) Absolute Neuts (auto) Absolute Nucleated RBC Nucleated RBC % (auto) Sodium Potassium Chloride Carbon Dioxide Anion Gap BUN Creatinine Estim Creat Clear Calc Estimated GFR Random Glucose Estimat Average Glucose 105 Hemoglobin A1c % 5.3 Calcium Magnesium Total Bilirubin AST ALT Alkaline Phosphatase Total Protein Albumin Triglycerides Cholesterol LDL Cholesterol, Calc HDL Cholesterol Vitamin B12 Folate TSH Free T4 Salicylates Urine Opiates Screen Not Detected Urine Fentanyl Screen Not Detected Acetaminophen Ur Barbiturates Screen Not Detected Ur Phencyclidine Scrn Not Detected Ur Amphetamines Screen Not Detected U Benzodiazepines Scrn Not Detected Urine Cocaine Screen Not Detected U Marijuana (THC) Screen Not Detected Ethyl Alcohol COVID-19 ([facility]) Negative COVID-19 Clin Com See Note 06/15/21 06/15/21 07:50 07:50 WBC RBC Hgb Hct MCV MCH MCHC RDW Plt Count MPV Immature Gran % (Auto) Neut % (Auto) Lymph % (Auto) Charlton % (Auto) Eos % (Auto) Baso % (Auto) Lymph # (Auto) Charlton # (Auto) Eos # (Auto) Baso # (Auto) Abs Immat Gran (auto) Absolute Neuts (auto) Absolute Nucleated RBC Nucleated RBC % (auto) Sodium Potassium Chloride Carbon Dioxide Anion Gap BUN Creatinine Estim Creat Clear Calc Estimated GFR Random Glucose Estimat Average Glucose Hemoglobin A1c % Calcium Magnesium 1.8 Total Bilirubin AST ALT Alkaline Phosphatase Total Protein Albumin Triglycerides 78 Cholesterol 229 LDL Cholesterol, Calc 147 HDL Cholesterol 67 Vitamin B12 443 Folate 11.8 TSH 0.65 Free T4 1.49 Salicylates Urine Opiates Screen Urine Fentanyl Screen Acetaminophen Ur Barbiturates Screen Ur Phencyclidine Scrn Ur Amphetamines Screen U Benzodiazepines Scrn Urine Cocaine Screen U Marijuana (THC) Screen Ethyl Alcohol COVID-19 ([facility]) COVID-19 Clin Com DS: Summary Hospital Course Hospital Course: The patient was admitted after a retail general manager call 911 since she reported suicidal ideation. Please see HPI of the admission note for further details. On the emergency room, her blood alcohol level was over 200. On admission, the patient admitted depressive symptoms in correlation with psychosocial stressors such as financial concerns, her who is very sick and she is the primary caregiver and others. She also reluctantly admitted alcohol use disorder. But later, she adamantly denied that she has an alcohol use disorder, even though that on admission she asked for medication for alcohol cravings. The patient signed a 3 day notice the following day after admission since she stated that she needed to go back home and help her who is very impaired. We placed her on alcohol withdrawal protocol and she did not scored. We started her on antidepressants and naltrexone to target alcohol cravings. The patient was seen in the facility, in the common areas, interacting appropriately with staff and peers. She adamantly denies suicidal or homicidal thoughts, she denied any safety concerns. Since there were no safety concerns discharge planning was discussed. Time spent discussing smoking cessation with patient: 3 to 10 minutes Status at Discharge Cognitive/behavioral status at discharge: At baseline Functional status at discharge: independent ambulation Overall status at discharge: patient is back to baseline Time Spent with Patient Time attestation: Total time spent providing and/or coordinating discharge services: Time spent: Less than 30 minutes Discharge Plan Discharge Patient Disposition: Home, Self-Care Discharge Diagnosis: major depressive disorder recurrent episode. Alcohol use disorder. Referrals: [facility] [Other] - 3-5 Days (Referral made on 06/17/21 for state home care, meals on wheels and money management. [facility] discharge from [facility].) [facility] (psychiatrists) [Other] - 1 Week (Appointment scheduled for ) [facility] (therapists) [Other] - 1 Week (Appt scheduled for ) [facility] [Other] - 3-5 Days (Please call and inquire on free corporate legal intern post dischrge from hospital.) Physician,Unknown J [Primary Care Provider] - 1 Week Discharge Medications: New trazodone 50 mg Tablet 50 mg PO BEDTIME PRN (Reason: Insomnia) 30 Days Qty: 30 0RF naltrexone 50 mg Tablet 50 mg PO DAILY 30 Days Qty: 30 0RF mirtazapine 7.5 mg Tablet 7.5 mg PO BEDTIME 30 Days Qty: 30 0RF Discontinued paroxetine HCl 40 mg tablet 40 mg PO DAILY Qty: 90 8RF lorazepam 0.5 mg tablet 0.5 mg PO BID PRN (Reason: anxiety) Qty: 60 0RF Discharge Orders: Discharge Order (Routine); Ordered 06/20/21 Ordered By: Phan Tavares Diet: advance to usual diet Activity on Discharge: As tolerated Stand Alone Forms: Patient Portal Discharge page Care Plan Goals: Care plan goals achieved in this admission Health Concerns: follow-up with primary care physician Plan of Treatment: medication management as an outpatient psychotherapy. Assessment: elderly female with a long history of depression and alcohol use disorder admitted after she disclosed suicidal ideation while she was intoxicated. At this moment she is safe, adamantly denies suicidal or homicidal thoughts and there are no safety concerns.
[2021-06-20] MEDS: Naltrexone HCl 50 MG TABLET PO (08:39)
--- NOTE | 2021-06-20 14:47 | PC.NURSE ---
Alert and oriented X4 Pleasant medication compliant scoring 0 on CIWA scale today pt aware of discharge, teaching and documentation provided to pt pt belongings handed to pt
== END 2021-06-20 15:20 | disposition home or self-care (01) | DRG 885 ==
LOC: HO.ED 17:33 → HO.PGERI 21:47
PROVIDERS: Internal Medicine; Admitting Provider Registered Nurse; Emergency Provider Emergency Medicine; Visit Provider Registered Nurse
DX: F33.9 Major depressive disorder, recurrent, unspecified (principal); R45.851 Suicidal ideations; F10.20 Alcohol dependence, uncomplicated; Y90.7 Blood alcohol level of 200-239 mg/100 ml; Z20.822 Contact with and (suspected) exposure to COVID-19; Z79.899 Other long term (current) drug therapy
CPT/HCPCS: 36415; 80053; 80061; 80143; 80179; 80307; 82077; 82607; 82746; 83036; 83735; 84439; 84443; 85025; 87635; 99285

== ENCOUNTER 2021-08-03 10:22 | Outpatient (REF) | payer MEDICARE, MEDICAID, SELFPAY ==
--- NOTE | ~2021-08-03 | XR_ITS ---
EXAMINATION: XR SHOULDER, LEFT CLINICAL INFORMATION: Left shoulder pain COMPARISON: None TECHNIQUE: AP external rotation, Grashey, scapular Y, and axillary views of the left shoulder. FINDINGS: The bones and soft tissues are normal. No fracture. Glenohumeral and acromioclavicular alignment is anatomic with normal joint space. No abnormal soft tissue calcifications. XR/XR shoulder LT min 2V IMPRESSION: Unremarkable left shoulder exam.
[2021-08-03 10:35] LABS: MANUAL DIFF FLAG NO
[2021-08-03 11:01] LABS: Basophils Percent Auto 0.8 % (0-2); Eosinophils Absolute Auto 0.2 X10*3/uL (0.0-0.4); Eosinophils Percent Auto 3.5 % (0-4); Hematocrit 42.6 % (37.0-47.0); Hemoglobin 14.3 g/dl (12.0-16.0); Imm Gran Abs Auto 0.01 X10*3/uL (0.00-0.03); Imm Gran Pct Auto 0.2 % (0.0-0.4); Lymphocytes Absolute Auto 1.6 X10*3/uL (1.2-4.9); Lymphocytes Percent Auto 31.3 % (20-40); Mean Corpuscular HGB Conc 33.6 g/dl (31.0-35.0); Mean Corpuscular Hemoglobin 31.2 pg (27.0-33.0); Mean Corpuscular Volume 92.8 fL (80.0-98.0); Mean Platelet Volume 9.7 fL (9.4-12.3); Monocytes Absolute Auto 0.7 X10*3/uL (0.1-1.2); Monocytes Percent Auto 13.7 % (2-11); Neutrophils Absolute Auto 2.6 x10*3/uL (2.0-8.3); Neutrophils Percent Auto 50.5 % (45-73); Platelet Count 185 X10*3/uL (160-400); Red Blood Count 4.59 X10*6/uL (4.20-5.50); Red Cell Distribution Width 14.1 % (11.0-16.0); White Blood Count 5.2 X10*3/uL (4.8-10.8)
[2021-08-03 12:09] LABS: Thyroid Stimulating Hormone 1.23 uIU/mL (0.32-4.0)
[2021-08-03 12:17] LABS: Alanine Aminotransferase 18 U/L (0-31); Albumin Level 4.3 g/dL (3.5-5.0); Alkaline Phosphatase 71 U/L (39-117); Anion Gap 15 (12-20); Aspartate Amino Transferase 26 U/L (5-31); Blood Urea Nitrogen 15 mg/dL (9-16); Calcium 9.2 mg/dL (8.4-10.2); Carbon Dioxide 25 mmol/L (22-29); Chloride 104 mmol/L (96-108); Cholesterol 267 mg/dL; Estimated Glomerular Filt Rate > 60; Glucose Fasting 107 mg/dL (60-99); HDL Cholesterol 74 mg/dL; LDL Cholesterol Calculated 165 mg/dl; Potassium 3.9 mmol/L (3.3-5.1); Sodium 140 mmol/L (135-145); Total Protein 7.9 g/dL (6.5-8.0); Triglycerides 142 mg/dL
== END 2021-08-03 10:23 | disposition home or self-care (01) ==
LOC: HO.XRAY 10:22
PROVIDERS: PCP Internal Medicine; Visit Provider Internal Medicine
DX: Z00.00 Encounter for general adult medical examination without abnormal findings (principal); Z13.0 Encounter for screening for diseases of the blood and blood-forming organs and certain disorders involving the immune mechanism; M25.512 Pain in left shoulder
CPT/HCPCS: 36415; 73030; 80053; 80061; 84443; 85025

== ENCOUNTER 2022-05-15 11:05 | Outpatient (REF) | payer MEDICARE, MEDICAID, SELFPAY ==
--- NOTE | ~2022-05-15 | XR_ITS ---
EXAMINATION: XR KNEE, RIGHT CLINICAL INFORMATION: Pain. COMPARISON: Radiographs dated 04/10/2018. TECHNIQUE: AP and lateral views of the right knee. FINDINGS: Bony mineralization is normal. There is marked asymmetric narrowing of the medial joint space compartment, with peripheral osteophyte formation. The lateral joint space compartment is well-maintained. A secondary varus configuration is seen. There is marked narrowing of the patellofemoral compartment, with peripheral osteophyte formation. No fracture or dislocation is seen. There is a small joint effusion. No foreign body is seen. XR/XR knee RT 2V IMPRESSION: There is marked osteoarthritic change of the medial and patellofemoral joint space compartments of the right knee. There is a secondary varus configuration. A moderate right knee joint effusion is seen.
== END 2022-05-15 11:06 | disposition home or self-care (01) ==
LOC: HO.XRAY 11:05
PROVIDERS: PCP Internal Medicine; Visit Provider Internal Medicine
DX: M25.561 Pain in right knee (principal)
CPT/HCPCS: 73560

== ENCOUNTER 2022-06-11 15:30 | Inpatient (IN) | payer MEDICARE, MEDICAID, SELFPAY ==
--- NOTE | ~2022-06-11 | CT_ITS ---
CT HEAD WITHOUT CONTRAST CLINICAL HISTORY: Altered mental status TECHNIQUE: CT of the brain was performed from the skull base through the vertex using a routine non-contrast protocol. All CT exams at this location are performed using dose optimization techniques as appropriate to a performed exam including at least one of the following: * Automated exposure control * Adjustment of the mA and/or kV according to patient size (this includes techniques or standardized protocols for targeted exams where dose is matched to indication / reason for exam; i/e/ extremities or head) * Use of iterative reconstructive technique DLP: 578 mGy-cm COMPARISON: None. RESULTS: There is no evidence of acute intracranial hemorrhage, acute large vessel infarct, midline shift or mass effect. The garcia-white differentiation is preserved. Patchy and confluent areas of decreased attenuation seen in the periventricular and subcortical white matter most consistent with chronic microvascular ischemic disease. The ventricles and sulci are within normal limits in size and configuration. There is no evidence of hydrocephalus. There are no extraaxial collections. Osseous structures are intact. There is complete opacification of the left sphenoid sinus. Small air-fluid level seen in the posterior left ethmoid air cells. CT/CT head/brain wo IV con IMPRESSION: No acute process Chronic microvascular ischemic changes Left-sided sinus disease
--- NOTE | ~2022-06-11 | XR_ITS ---
EXAMINATION: XR CHEST CLINICAL INFORMATION: Altered mental status COMPARISON: None available. TECHNIQUE: Frontal view of the chest was obtained. FINDINGS: Heart is normal in size. Low lung volumes are present. Perihilar atelectasis seen. No focal airspace consolidation or pleural effusions. XR/XR chest 1V IMPRESSION: Low lung volumes with atelectasis.
[2022-06-11 15:40] VITALS: BP 143/94; BP 170/110; PULSE 120; PULSE 130; RESP 20; TEMP 36.9; O2SAT 97; BMI 24.1
--- NOTE | 2022-06-11 15:50 | PC.NURSE ---
pt BIBA due to weakness, pt was unable to walk at home. Pt admits to drinking every day Sinus tach on monitor, other vitals within normal range. will cont to bib
--- NOTE | 2022-06-11 16:01 | ECG_ITS ---
Test Reason : ams Blood Pressure : / mmHG Vent. Rate : 127 BPM Atrial Rate : 127 BPM P-R Int : 136 ms QRS Dur : 058 ms QT Int : 324 ms P-R-T Axes : 025 012 048 degrees QTc Int : 470 ms Sinus tachycardia Nonspecific ST and T wave abnormality Otherwise normal ECG No previous ECGs available Referred By: Grecia Tuttle Electronically Signed By:MARINA BISWAS
[2022-06-11 16:28] LABS: MANUAL DIFF FLAG NO
[2022-06-11 16:33] LABS: Basophils Percent Auto 0.4 % (0-2); Eosinophils Percent Auto 0.2 % (0-4); Hematocrit 44.1 % (37.0-47.0); Hemoglobin 15.8 g/dl (12.0-16.0); Imm Gran Abs Auto 0.02 X10*3/uL (0.00-0.03); Imm Gran Pct Auto 0.4 % (0.0-0.4); Lymphocytes Absolute Auto 0.6 X10*3/uL (1.2-4.9); Lymphocytes Percent Auto 11.5 % (20-40); Mean Corpuscular HGB Conc 35.8 g/dl (31.0-35.0); Mean Corpuscular Hemoglobin 31.5 pg (27.0-33.0); Mean Corpuscular Volume 87.8 fL (80.0-98.0); Mean Platelet Volume 10.9 fL (9.4-12.3); Monocytes Absolute Auto 0.3 X10*3/uL (0.1-1.2); Monocytes Percent Auto 5.2 % (2-11); Neutrophils Absolute Auto 4.2 x10*3/uL (2.0-8.3); Neutrophils Percent Auto 82.3 % (45-73); Platelet Count 53 X10*3/uL (160-400); Red Blood Count 5.02 X10*6/uL (4.20-5.50); Red Cell Distribution Width 14.6 % (11.0-16.0); White Blood Count 5.2 X10*3/uL (4.8-10.8)
[2022-06-11 16:35] LABS: INTERNATIONAL NORM RATIO 0.9 (0.9-1.1); Prothrombin Time 10.2 SEC (10.0-13.1)
[2022-06-11 16:43] LABS: Osmolality, Serum 352 mosm/kg (281-305)
[2022-06-11 16:45] LABS: Ethanol 256 mg/dL
--- NOTE | 2022-06-11 16:47 | PC.NURSE ---
pt neuros intact, strength equal bilaterally, no facial droop. slurring of words subsided as pt has been more engaged with surroundings. Pt currently in CT, will medicate with Ativan upon return. LOBO WALKER aware.
--- NOTE | 2022-06-11 16:53 | ED.GENADULT ---
HPI - General Adult General Chief complaint: ETOH/Substance Use Stated complaint: UNSTEADY ON FEET,FAM CONC,NO ETOH TODAY Time Seen by Provider: 06/11/22 16:09 Source: patient Mode of arrival: ambulatory Limitations: no limitations History of Present Illness HPI narrative: 72-year-old female with history of alcohol abuse presents to the ED for unsteady gait and weakness as per family. Patient states last drink of alcohol was yesterday. Patient is tremulous. Alcohol smelled breath. patient states last drink was yesterday. Patient denies any recent trauma to the head. Patient denies any stroke-like symptoms. Related Data Home Medications Medication Instructions Recorded Confirmed mirtazapine 45 mg tablet 45 mg PO BEDTIME 06/11/22 06/11/22 Previous Rx's Medication Instructions Recorded lorazepam 0.5 mg tablet 0.5 mg PO BID PRN anxiety #60 tabs 05/15/22 naltrexone 50 mg tablet 50 mg PO DAILY 30 days #30 tabs 05/15/22 trazodone 50 mg tablet 50 mg PO BEDTIME PRN Insomnia 30 05/15/22 days #30 tabs Allergies Allergy/AdvReac Type Severity Reaction Status Date / Time No Known Allergies Allergy Verified 05/15/22 10:46 Review of Systems Review of Systems: Alcohol abuse. Yes all other systems are reviewed and are negative PMFSH Past Medical History Medical History (Updated 06/11/22 @ 21:40 by LOBO Diaz) Depression, acute Surgical History No pertinent past surgical history Family History Family History Other Mental health disorder Social History Social History (Updated 08/03/21 @ 09:46 by ELY Patterson) Household Members: Spouse Housing: House Do you presently have visiting nurse or other home services: No Alcohol intake: current Alcohol intake frequency: 3 or more drinks per day Alcohol type: hard liquor Patient Tobacco Use Status: Never used Tobacco Smoked in Last 30 Days: No e-Cigarette/Vaping Use: Never Used Second Hand Smoke Exposure: No Use of substances other than those prescribed or required for medical reasons: No Substance Use Type: Caffiene Advance Directives: No Advance Directives Information Provided: No service: No Current occupational status: retired Current occupational exposures/hazards: No Sexual orientation: Straight/Heterosexual Cognitive needs: No Hearing needs: No Vision needs: Yes Physical Exam ED Vital Signs: Vital Signs - 24 hr 06/11/22 15:40 06/11/22 17:48 Temperature 98.5 F Pulse Rate 120 H 130 H Respiratory Rate 20 20 Blood Pressure 143/94 H 118/91 H Pulse Oximetry 97 97 Oxygen Delivery Method Room Air Room Air BMI result Body Mass Index 24.1 Const General: cooperative, healthy appearing, comfortable, no acute distress, well developed, alert, awake and Physically active [facility] Head: Yes normal to inspection, Yes No palpable skull fracture present, Yes normocephalic, Yes atraumatic and No abrasion Eyes General: appearance normal, both eyes and all related structures Neck Neck: Yes normal visual inspection, Yes full ROM, Yes no lymphadenopathy, Yes no meningeal signs, Yes trachea midline, Yes supple, No anterior neck swelling and No tender Chest Chest palpation & inspection: normal inspection of the chest and normal palpation of entire chest wall Resp Effort & Inspection: normal respiratory effort and able to speak in complete sentences Cardio Jugular venous distension: no JVD Heart sounds: S1 normal heart sound present and S2 normal heart sound present GI Inspection: Yes normal to inspection and No abdominal wall ecchymosis Palpation (GI): Soft to palpation, not firm, nontender and no guarding General: No CVA tenderness and Yes no CVA tenderness Back/Spine/Pelvis Back: no CVA tenderness, No CVA tenderness and No back tenderness Skin General skin exam: no rashes or lesions noted and elasticity normal Neuro Other: Negative facial droop. Negative slurred speech. Negative pronator drift. All extremities equal strength 5+. Positive for tremors. Patient withdrawal. CIWA score 9 as per nurse. NIH Score 0. General: no meningeal signs Extrem General: Yes normal to inspection and Yes full ROM Psych Appearance: disheveled Course Course Course Narrative: History physical exam indicates alcohol withdrawal and not stroke symptoms. Patient not in DTs. Will give Ativan. Labs and head CT were ordered before saw patient. Lactic acid came back 7.4 do not believe infectious more due to severe tremors due to alcohol withdrawal but will give fluids. Gastric reorder will look for urine. Reevaluation(s) Reevaluation #1: Troponin positive. Lactic acid 7.4. Patient hypokalemic. Bicarb and chloride are lower than usual. Not believe this is a STEMI. Patient is presenting as alcoholic ketoacidosis. Will order repeat troponin. CPK added. Dextrose saline ordered. Potassium being given. EKG sinus tachycardia. Time: 17:18 Reevaluation #2: Very unlikely lactic acidosis is from an infection most likely from alcoholic ketoacidosis but presently not able to receive urine due to patient sleeping due to receiving Ativan. Patient presently very sleepy not arousable due to Ativan. Heart rate on monitor 106. Nurse informed to hang antibiotics Time: 18:54 Reevaluation #3: Case was discussed with hospitalist Dr. Chakraborty who recommends patient have ABG ordered and Phenobarbital. Patient awaken once again started having tremors. Medications Administered Discontinued Medications Generic Name Dose Route Start Last Admin Trade Name Freq PRN Reason Stop Dose Admin Chlordiazepoxide HCl 50 mg 06/11/22 17:28 06/11/22 17:32 Chlordiazepoxide Hcl 25 Mg Capsule PO 06/11/22 17:29 50 mg ONCE ONE Administration Sodium Chloride 1,849.29 mls @ 1,849.29 mls/hr 06/11/22 17:03 06/11/22 20:31 Ns 30 ml/kg infuse over 1 hr (1849.29 ml) 06/11/22 18:02 Infused IV Infusion .Q1H STA Potassium Chloride 10 meq in 100 mls @ 100 mls/hr 06/11/22 17:16 06/11/22 18:44 Potassium Chloride/H20 IV 06/11/22 18:15 Infused ONCE ONE Infusion Ceftriaxone Sodium 1 gm/ 50 mls @ 100 mls/hr 06/11/22 18:51 06/11/22 20:32 Sodium Chloride IV 06/11/22 19:20 Infused ONCE ONE Infusion Lorazepam 2 mg 06/11/22 16:43 06/11/22 17:04 Lorazepam 2 Mg/Ml Vial IVPUSH 06/11/22 16:44 2 mg ONCE ONE Administration Lorazepam 2 mg 06/11/22 20:20 06/11/22 20:32 Lorazepam 2 Mg/Ml Vial IVPUSH 06/11/22 20:21 2 mg ONCE ONE Administration Phenobarbital Sodium 210 mg 06/11/22 20:00 06/11/22 20:33 Phenobarbital Sodium 130 Mg/Ml Im Once IM 06/11/22 20:01 210 mg ONCE ONE Administration Potassium Chloride 40 meq 06/11/22 17:09 06/11/22 17:32 Potassium Chloride Packet 20 Meq Packet PO 06/11/22 17:10 40 meq ONCE ONE Administration Thiamine HCl 100 mg 06/11/22 17:29 06/11/22 17:45 Thiamine Hcl 100 Mg Tablet PO 06/11/22 17:30 100 mg ONCE ONE Administration Medical Decision Making Medical Decision Making [facility] Narrative: 72-year-old history of alcohol abuse presents to ED for tremors, tachycardia, and seems to be in alcohol withdrawal. Patient alert oriented x3. Negative for any neuro deficits. Patient's is an alcoholic ketoacidosis and withdrawal. Patient had to be giving multiple rounds of Ativan and Librium. Lactic acid elevation most likely due to patient being tremulous and alcohol withdrawal/abuse. Patient malnutrition. Patient is hypokalemic. Head CT scan chest x-ray normal. UA pending. Patient accepted for by hospitalist for admission for alcoholic ketoacidosis and withdrawal. Patient placed on phenobarbital. Elevated troponin most likely due to dehydration and mild nutrition. patient has low platetels Differential Diagnosis Differential Diagnoses: The differential diagnosis associated with the presentation includes (Delirium tremors, hepatic cephalopathy, brain bleed, sepsis, myocardial infarction) Admission/Observation Consideration of admission/observation: Escalation of care including admission/observation considered Consult Healthcare Provider Management of the patient was discussed with: Hospitalist (Dr. Chakraborty) Lab Data [facility] Lab Attestation statement: I reviewed the patient's lab results. 06/11/22 16:21 06/11/22 16:21 Labs: Lab Results 06/11/22 06/11/22 06/11/22 Range/Units 16:20 16:20 16:20 WBC (4.8-10.8) X10*3/uL RBC (4.20-5.50) X10*6/uL Hgb (12.0-16.0) g/dl Hct (37.0-47.0) % MCV (80.0-98.0) fL MCH (27.0-33.0) pg MCHC (31.0-35.0) g/dl RDW (11.0-16.0) % Plt Count (160-400) X10*3/uL MPV (9.4-12.3) fL Immature Gran % (Auto) (0.0-0.4) % Neut % (Auto) (45-73) % Lymph % (Auto) (20-40) % [place] % (Auto) (2-11) % Eos % (Auto) (0-4) % Baso % (Auto) (0-2) % Lymph # (Auto) (1.2-4.9) X10*3/uL [place] # (Auto) (0.1-1.2) X10*3/uL Eos # (Auto) (0.0-0.4) X10*3/uL Baso # (Auto) (0.0-0.2) X10*3/uL Abs Immat Gran (auto) (0.00-0.03) X10*3/uL Absolute Neuts (auto) (2.0-8.3) x10*3/uL Absolute Nucleated RBC (0.0-0.012) X10*3/uL Nucleated RBC % (auto) (0.0-0.2) /100WBC PT 10.2 (10.0-13.1) SEC INR 0.9 (0.9-1.1) O2 Saturation % ABG pH at Pt Temp (7.35-7.45) ABG pCO2 at Pt Temp (32-45) mmHg ABG pO2 at Pt Temp (83-108) mmHg ABG HCO3 (22-26) mmol/L ABG Base Excess (Actual) mmol/L Sodium (135-145) mmol/L Potassium (3.3-5.1) mmol/L Chloride (96-108) mmol/L Carbon Dioxide (22-29) mmol/L Anion Gap (12-20) BUN (9-16) mg/dL Creatinine (0.5-1.4) mg/dL Estim Creat Clear Calc Estimated GFR Random Glucose (60-115) mg/dL Osmolality (281-305) mosm/kg Lactic Acid 7.4 H* (0.5-2.0) mmol/L Lactic Acid F/U @ 2Hr (0.5-2.0) mmol/L Calcium (8.4-10.2) mg/dL Magnesium (1.6-2.6) mg/dL Total Bilirubin (0.0-1.0) mg/dL Direct Bilirubin (0.0-0.5) mg/dL AST (5-31) U/L ALT (0-31) U/L Alkaline Phosphatase (39-117) U/L Ammonia 41 (13-55) umol/L Total Creatine Kinase (26-140) U/L Troponin I High Sens (<3.5-17.0) ng/L B-Natriuretic Peptide (<100) pg/mL Total Protein (6.5-8.0) g/dL Albumin (3.5-5.0) g/dL Ethyl Alcohol mg/dL Influenza Type A (PCR) (Negative) Influenza Type B (PCR) (Negative) RSV RNA Qual (PCR) (Negative) SARS-CoV-2 RNA (RT-PCR) (Negative) 06/11/22 06/11/22 06/11/22 Range/Units 16:21 16:21 16:21 WBC 5.2 (4.8-10.8) X10*3/uL RBC 5.02 (4.20-5.50) X10*6/uL Hgb 15.8 (12.0-16.0) g/dl Hct 44.1 (37.0-47.0) % MCV 87.8 (80.0-98.0) fL MCH 31.5 (27.0-33.0) pg MCHC 35.8 H (31.0-35.0) g/dl RDW 14.6 (11.0-16.0) % Plt Count 53 L D (160-400) X10*3/uL MPV 10.9 (9.4-12.3) fL Immature Gran % (Auto) 0.4 (0.0-0.4) % Neut % (Auto) 82.3 H (45-73) % Lymph % (Auto) 11.5 L (20-40) % [place] % (Auto) 5.2 (2-11) % Eos % (Auto) 0.2 (0-4) % Baso % (Auto) 0.4 (0-2) % Lymph # (Auto) 0.6 L (1.2-4.9) X10*3/uL [place] # (Auto) 0.3 (0.1-1.2) X10*3/uL Eos # (Auto) 0.0 (0.0-0.4) X10*3/uL Baso # (Auto) 0.0 (0.0-0.2) X10*3/uL Abs Immat Gran (auto) 0.02 (0.00-0.03) X10*3/uL Absolute Neuts (auto) 4.2 (2.0-8.3) x10*3/uL Absolute Nucleated RBC 0.000 (0.0-0.012) X10*3/uL Nucleated RBC % (auto) 0.0 (0.0-0.2) /100WBC PT (10.0-13.1) SEC INR (0.9-1.1) O2 Saturation % ABG pH at Pt Temp (7.35-7.45) ABG pCO2 at Pt Temp (32-45) mmHg ABG pO2 at Pt Temp (83-108) mmHg ABG HCO3 (22-26) mmol/L ABG Base Excess (Actual) mmol/L Sodium 135 (135-145) mmol/L Potassium 2.8 L D (3.3-5.1) mmol/L Chloride 92 L (96-108) mmol/L Carbon Dioxide 18 L (22-29) mmol/L Anion Gap 28 H (12-20) BUN 12 (9-16) mg/dL Creatinine 0.69 (0.5-1.4) mg/dL Estim Creat Clear Calc 61.8 Estimated GFR > 60 Random Glucose 182 H (60-115) mg/dL Osmolality (281-305) mosm/kg Lactic Acid (0.5-2.0) mmol/L Lactic Acid F/U @ 2Hr (0.5-2.0) mmol/L Calcium 7.8 L D (8.4-10.2) mg/dL Magnesium 1.6 (1.6-2.6) mg/dL Total Bilirubin 1.2 H (0.0-1.0) mg/dL Direct Bilirubin 0.6 H (0.0-0.5) mg/dL AST 230 H (5-31) U/L ALT 167 H (0-31) U/L Alkaline Phosphatase 74 (39-117) U/L Ammonia (13-55) umol/L Total Creatine Kinase 914 H (26-140) U/L Troponin I High Sens 36.2 H (<3.5-17.0) ng/L B-Natriuretic Peptide (<100) pg/mL Total Protein 7.0 (6.5-8.0) g/dL Albumin 4.0 (3.5-5.0) g/dL Ethyl Alcohol mg/dL Influenza Type A (PCR) (Negative) Influenza Type B (PCR) (Negative) RSV RNA Qual (PCR) (Negative) SARS-CoV-2 RNA (RT-PCR) (Negative) 06/11/22 06/11/22 06/11/22 Range/Units 16:21 16:22 16:22 WBC (4.8-10.8) X10*3/uL RBC (4.20-5.50) X10*6/uL Hgb (12.0-16.0) g/dl Hct (37.0-47.0) % MCV (80.0-98.0) fL MCH (27.0-33.0) pg MCHC (31.0-35.0) g/dl RDW (11.0-16.0) % Plt Count (160-400) X10*3/uL MPV (9.4-12.3) fL Immature Gran % (Auto) (0.0-0.4) % Neut % (Auto) (45-73) % Lymph % (Auto) (20-40) % [place] % (Auto) (2-11) % Eos % (Auto) (0-4) % Baso % (Auto) (0-2) % Lymph # (Auto) (1.2-4.9) X10*3/uL [place] # (Auto) (0.1-1.2) X10*3/uL Eos # (Auto) (0.0-0.4) X10*3/uL Baso # (Auto) (0.0-0.2) X10*3/uL Abs Immat Gran (auto) (0.00-0.03) X10*3/uL Absolute Neuts (auto) (2.0-8.3) x10*3/uL Absolute Nucleated RBC (0.0-0.012) X10*3/uL Nucleated RBC % (auto) (0.0-0.2) /100WBC PT (10.0-13.1) SEC INR (0.9-1.1) O2 Saturation % ABG pH at Pt Temp (7.35-7.45) ABG pCO2 at Pt Temp (32-45) mmHg ABG pO2 at Pt Temp (83-108) mmHg ABG HCO3 (22-26) mmol/L ABG Base Excess (Actual) mmol/L Sodium (135-145) mmol/L Potassium (3.3-5.1) mmol/L Chloride (96-108) mmol/L Carbon Dioxide (22-29) mmol/L Anion Gap (12-20) BUN (9-16) mg/dL Creatinine (0.5-1.4) mg/dL Estim Creat Clear Calc Estimated GFR Random Glucose (60-115) mg/dL Osmolality 352 H (281-305) mosm/kg Lactic Acid (0.5-2.0) mmol/L Lactic Acid F/U @ 2Hr (0.5-2.0) mmol/L Calcium (8.4-10.2) mg/dL Magnesium (1.6-2.6) mg/dL Total Bilirubin (0.0-1.0) mg/dL Direct Bilirubin (0.0-0.5) mg/dL AST (5-31) U/L ALT (0-31) U/L Alkaline Phosphatase (39-117) U/L Ammonia (13-55) umol/L Total Creatine Kinase (26-140) U/L Troponin I High Sens (<3.5-17.0) ng/L B-Natriuretic Peptide < 10 (<100) pg/mL Total Protein (6.5-8.0) g/dL Albumin (3.5-5.0) g/dL Ethyl Alcohol mg/dL Influenza Type A (PCR) NEGATIVE (Negative) Influenza Type B (PCR) NEGATIVE (Negative) RSV RNA Qual (PCR) NEGATIVE (Negative) SARS-CoV-2 RNA (RT-PCR) NEGATIVE (Negative) 06/11/22 06/11/22 06/11/22 Range/Units 16:22 19:43 19:45 WBC (4.8-10.8) X10*3/uL RBC (4.20-5.50) X10*6/uL Hgb (12.0-16.0) g/dl Hct (37.0-47.0) % MCV (80.0-98.0) fL MCH (27.0-33.0) pg MCHC (31.0-35.0) g/dl RDW (11.0-16.0) % Plt Count (160-400) X10*3/uL MPV (9.4-12.3) fL Immature Gran % (Auto) (0.0-0.4) % Neut % (Auto) (45-73) % Lymph % (Auto) (20-40) % [place] % (Auto) (2-11) % Eos % (Auto) (0-4) % Baso % (Auto) (0-2) % Lymph # (Auto) (1.2-4.9) X10*3/uL [place] # (Auto) (0.1-1.2) X10*3/uL Eos # (Auto) (0.0-0.4) X10*3/uL Baso # (Auto) (0.0-0.2) X10*3/uL Abs Immat Gran (auto) (0.00-0.03) X10*3/uL Absolute Neuts (auto) (2.0-8.3) x10*3/uL Absolute Nucleated RBC (0.0-0.012) X10*3/uL Nucleated RBC % (auto) (0.0-0.2) /100WBC PT (10.0-13.1) SEC INR (0.9-1.1) O2 Saturation % ABG pH at Pt Temp (7.35-7.45) ABG pCO2 at Pt Temp (32-45) mmHg ABG pO2 at Pt Temp (83-108) mmHg ABG HCO3 (22-26) mmol/L ABG Base Excess (Actual) mmol/L Sodium 138 (135-145) mmol/L Potassium 4.1 D (3.3-5.1) mmol/L Chloride 102 (96-108) mmol/L Carbon Dioxide 17 L (22-29) mmol/L Anion Gap 23 H (12-20) BUN 11 (9-16) mg/dL Creatinine 0.60 (0.5-1.4) mg/dL Estim Creat Clear Calc 71.1 Estimated GFR > 60 Random Glucose 116 H (60-115) mg/dL Osmolality (281-305) mosm/kg Lactic Acid (0.5-2.0) mmol/L Lactic Acid F/U @ 2Hr 5.2 H* (0.5-2.0) mmol/L Calcium 6.7 L D (8.4-10.2) mg/dL Magnesium (1.6-2.6) mg/dL Total Bilirubin 0.9 (0.0-1.0) mg/dL Direct Bilirubin (0.0-0.5) mg/dL AST 177 H (5-31) U/L ALT 135 H (0-31) U/L Alkaline Phosphatase 62 (39-117) U/L Ammonia (13-55) umol/L Total Creatine Kinase (26-140) U/L Troponin I High Sens (<3.5-17.0) ng/L B-Natriuretic Peptide (<100) pg/mL Total Protein 5.9 L (6.5-8.0) g/dL Albumin 3.3 L (3.5-5.0) g/dL Ethyl Alcohol 256 mg/dL Influenza Type A (PCR) (Negative) Influenza Type B (PCR) (Negative) RSV RNA Qual (PCR) (Negative) SARS-CoV-2 RNA (RT-PCR) (Negative) 06/11/22 06/11/22 Range/Units 19:46 20:05 WBC (4.8-10.8) X10*3/uL RBC (4.20-5.50) X10*6/uL Hgb (12.0-16.0) g/dl Hct (37.0-47.0) % MCV (80.0-98.0) fL MCH (27.0-33.0) pg MCHC (31.0-35.0) g/dl RDW (11.0-16.0) % Plt Count (160-400) X10*3/uL MPV (9.4-12.3) fL Immature Gran % (Auto) (0.0-0.4) % Neut % (Auto) (45-73) % Lymph % (Auto) (20-40) % [place] % (Auto) (2-11) % Eos % (Auto) (0-4) % Baso % (Auto) (0-2) % Lymph # (Auto) (1.2-4.9) X10*3/uL [place] # (Auto) (0.1-1.2) X10*3/uL Eos # (Auto) (0.0-0.4) X10*3/uL Baso # (Auto) (0.0-0.2) X10*3/uL Abs Immat Gran (auto) (0.00-0.03) X10*3/uL Absolute Neuts (auto) (2.0-8.3) x10*3/uL Absolute Nucleated RBC (0.0-0.012) X10*3/uL Nucleated RBC % (auto) (0.0-0.2) /100WBC PT (10.0-13.1) SEC INR (0.9-1.1) O2 Saturation 99.0 % ABG pH at Pt Temp 7.46 H (7.35-7.45) ABG pCO2 at Pt Temp 25 L (32-45) mmHg ABG pO2 at Pt Temp 119 H (83-108) mmHg ABG HCO3 18 L (22-26) mmol/L ABG Base Excess (Actual) -3.3 mmol/L Sodium (135-145) mmol/L Potassium (3.3-5.1) mmol/L Chloride (96-108) mmol/L Carbon Dioxide (22-29) mmol/L Anion Gap (12-20) BUN (9-16) mg/dL Creatinine (0.5-1.4) mg/dL Estim Creat Clear Calc Estimated GFR Random Glucose (60-115) mg/dL Osmolality (281-305) mosm/kg Lactic Acid (0.5-2.0) mmol/L Lactic Acid F/U @ 2Hr (0.5-2.0) mmol/L Calcium (8.4-10.2) mg/dL Magnesium (1.6-2.6) mg/dL Total Bilirubin (0.0-1.0) mg/dL Direct Bilirubin (0.0-0.5) mg/dL AST (5-31) U/L ALT (0-31) U/L Alkaline Phosphatase (39-117) U/L Ammonia (13-55) umol/L Total Creatine Kinase (26-140) U/L Troponin I High Sens 49.9 H (<3.5-17.0) ng/L B-Natriuretic Peptide (<100) pg/mL Total Protein (6.5-8.0) g/dL Albumin (3.5-5.0) g/dL Ethyl Alcohol mg/dL Influenza Type A (PCR) (Negative) Influenza Type B (PCR) (Negative) RSV RNA Qual (PCR) (Negative) SARS-CoV-2 RNA (RT-PCR) (Negative) Independent Interpretation I performed an independent interpretation of an: EKG Interpretation: Sinus tachycardia. Ventricular rate 127. MT interval 136. QRS 58. QTC 470. Negative STEMI External Record Review External record reviewed: Inpatient record Critical Care Time Critical Care Time Critical Care Time: Yes Total Critical Care Time: 60 Attestation: Alcoholic ketoacidosis. Alcohol withdrawal Discharge Plan Discharge Clinical Impression: Alcohol withdrawal, Alcoholic ketoacidosis Patient Disposition: Admitted As Inpatient
[2022-06-11 16:57] LABS: Troponin-I High Sensitivity 36.2 ng/L (<3.5-17.0)
[2022-06-11 16:58] LABS: B Type Natriuretic Peptide < 10 pg/mL (<100)
[2022-06-11 17:01] LABS: Ammonia 41 umol/L (13-55)
[2022-06-11 17:03] LABS: Lactic Acid 7.4 mmol/L (0.5-2.0)
[2022-06-11] MEDS: LORazepam 2 MG/ML VIAL IVPUSH ×2 (17:04→20:32)
[2022-06-11 17:05] LABS: Alanine Aminotransferase 167 U/L (0-31); Alkaline Phosphatase 74 U/L (39-117); Anion Gap 28 (12-20); Aspartate Amino Transferase 230 U/L (5-31); Bilirubin Direct 0.6 mg/dL (0.0-0.5); Bilirubin Total 1.2 mg/dL (0.0-1.0); Blood Urea Nitrogen 12 mg/dL (9-16); Calcium 7.8 mg/dL (8.4-10.2); Carbon Dioxide 18 mmol/L (22-29); Chloride 92 mmol/L (96-108); Creatinine Clr Calc Pharmacy 61.8; Estimated Glomerular Filt Rate > 60; Glucose Random 182 mg/dL (60-115); Magnesium 1.6 mg/dL (1.6-2.6); Potassium 2.8 mmol/L (3.3-5.1); Sodium 135 mmol/L (135-145)
[2022-06-11 17:09] LABS: Influenza A PCR NEGATIVE (Negative); Influenza B PCR NEGATIVE (Negative); Resp Syncy Virus RNA Qual PCR NEGATIVE (Negative); SARS COV2 PCR INHOUSE NEGATIVE (Negative)
[2022-06-11] MEDS: chlordiazePOXIDE HCl 25 MG CAPSULE 50 MG PO (17:32)
[2022-06-11] MEDS: Potassium Chloride Packet 20 MEQ PACKET 40 MEQ PO (17:32)
[2022-06-11] MEDS: Potassium Chloride/H20 10 MEQ/100 ML PIGGYBACK 100 MEQ IV (17:40)
[2022-06-11] MEDS: Thiamine HCL 100 MG TABLET PO (17:45)
--- NOTE | 2022-06-11 17:46 | PC.NURSE ---
pt alert, oriented, talking to sons at bedside. IVs inserted, fluids and K infusing per order.
[2022-06-11 17:48] VITALS: BP 118/91; PULSE 130; RESP 20; O2SAT 97
[2022-06-11 18:26] LABS: Reflex Lactate? Lactic Acid Added
--- NOTE | 2022-06-11 18:30 | PHA.MEDREC ---
Pharmacy Consult ? Medication Reconciliation Pharmacy has completed the medication reconciliation. Spoke to patient to confirm medications. Patient confirmed medication names, but could not confirm dosages. Used claim history to confirm. Family states she has been on and off her meds, and it is unknown when she last took her medications.
[2022-06-11] MEDS: cefTRIAXone sodium 1 GM in 0.9 % Sodium Chloride 50 ML IV (19:00)
--- NOTE | 2022-06-11 19:00 | PC.NURSE ---
nurses and techs have been unable to get urine sample from ptArtur DIAMOND aware
--- NOTE | 2022-06-11 19:08 | PC.NURSE ---
per PA lab repeat labs should be drawn when fluids are finished running
--- NOTE | 2022-06-11 19:12 | PC.NURSE ---
pt sleeping at this time. Per PA hold off on straight cath until repeat labs are done and pt is more awake to attempt for urine.
[2022-06-11 19:44] VITALS: O2SAT 97
--- NOTE | 2022-06-11 19:46 | MHC.RECOVSUP ---
? Reason for consult: Recovery Support o Current location:[facility]21 o Identified substance use concern:ELVI? - Overdose ? Plan: o Follow up tomorrow ? ? Additional information:?General Duty Nurse wasn't able to meet with patient. Patient was sleeping. Recovery team to connect in the morning to support patient.
[2022-06-11 20:14] LABS: Troponin-I High Sensitivity 49.9 ng/L (<3.5-17.0)
[2022-06-11 20:14] LABS: Alanine Aminotransferase 135 U/L (0-31); Albumin Level 3.3 g/dL (3.5-5.0); Alkaline Phosphatase 62 U/L (39-117); Anion Gap 23 (12-20); Aspartate Amino Transferase 177 U/L (5-31); Bilirubin Total 0.9 mg/dL (0.0-1.0); Blood Urea Nitrogen 11 mg/dL (9-16); Calcium 6.7 mg/dL (8.4-10.2); Carbon Dioxide 17 mmol/L (22-29); Chloride 102 mmol/L (96-108); Creatinine Clr Calc Pharmacy 71.1; Estimated Glomerular Filt Rate > 60; Glucose Random 116 mg/dL (60-115); Potassium 4.1 mmol/L (3.3-5.1); Sodium 138 mmol/L (135-145); Total Protein 5.9 g/dL (6.5-8.0)
[2022-06-11 20:16] LABS: ABG Base Excess -3.3 mmol/L; ABG HCO3 18 mmol/L (22-26); ABG pCO2 25 mmHg (32-45); ABG pH 7.46 (7.35-7.45); ABG pO2 119 mmHg (83-108)
[2022-06-11 20:19] LABS: ~Lactic Acid-LAB USE ONLY 5.2 mmol/L (0.5-2.0)
[2022-06-11 20:23] LABS: ABG Refer to POC result
[2022-06-11] MEDS: PHENobarbitaL sodium 130 MG/ML IM ONCE 210 MG IM (20:33)
--- NOTE | 2022-06-11 20:39 | PC.NURSE ---
Pts HR elevated @ 148 bpm. LOBO Melendez notified, ordering an additional dose of Ativan. Pheno order verified by pharmacy at the same time. This RN confirming with LOBO Hernandez prior to administering both medications. David stating to medicate with both due to withdrawals and continue to monitor the patient.
[2022-06-11 21:48] LABS: Reflex Lactate? 2 Y
[2022-06-11 22:21] LABS: Anion Gap 18 (12-20); Blood Urea Nitrogen 11 mg/dL (9-16); Calcium 6.7 mg/dL (8.4-10.2); Carbon Dioxide 20 mmol/L (22-29); Chloride 102 mmol/L (96-108); Creatinine Clr Calc Pharmacy 74.8; Estimated Glomerular Filt Rate > 60; Glucose Random 121 mg/dL (60-115); Potassium 3.4 mmol/L (3.3-5.1); Sodium 137 mmol/L (135-145)
--- NOTE | 2022-06-11 22:47 | PC.NURSE ---
Lab called critical Lactic Acid of 3.
--- NOTE | 2022-06-11 23:05 | PM.IMHP ---
History of Present Illness Date of Service: 06/11/22 Chief Complaint: Weakness, alcohol abuse 72-year-old female with past medical history of depression, alcohol abuse, history of alcohol withdrawals, was brought in by her son's for generalized weakness, and abusing alcohol to the point that she is not eating or drinking. This patient is sleeping, but arousable to verbal command, answers questions but falls back asleep after receiving Ativan for withdrawals. According to the sons, patient lives with her , they went to visit her at her house, they were told by the that patient has been in bed for several days, not eating or drinking water but continues to actively drink alcohol. She has also had an episode of urinary incontinence, this stones were concerned because she has had increased weakness, therefore they brought her to the hospital. They say that she drinks heavily, and has not been interested in detox in the past On arrival to the ED patient was tachycardic with a heart rate of 120, otherwise stable Labs are significant WBC count of 5.2, hemoglobin of 15.8, hematocrit 44.1, labs otherwise significant for pH of 7.46, bicarb of 18, anion gap of 28, lactic acid of 7.4, sodium of 2.8, AST of 230, ALT of 167, troponin of 36 increased to 49, albumin of 3.3 UA negative, urine drug screen positive for benzos, as well as barbiturates Head CT negative, chest x-ray shows atelectasis She was started on phenobarb and will be admitted for further management Review of Systems Review of Systems: Yes all other systems are reviewed and are negative [facility] Medical History Alcohol abuse Depression, acute Family History Other Mental health disorder Surgical History No pertinent past surgical history Social History Household Members: Spouse Housing: House Do you presently have visiting nurse or other home services: No Alcohol intake: current Alcohol intake frequency: 3 or more drinks per day Alcohol type: hard liquor Patient Tobacco Use Status: Never used Tobacco Smoked in Last 30 Days: No e-Cigarette/Vaping Use: Never Used Second Hand Smoke Exposure: No Use of substances other than those prescribed or required for medical reasons: No Substance Use Type: Caffiene Advance Directives: No Advance Directives Information Provided: No service: No Current occupational status: retired Current occupational exposures/hazards: No Sexual orientation: Straight/Heterosexual Cognitive needs: No Hearing needs: No Vision needs: Yes Meds Allergies Allergy/AdvReac Type Severity Reaction Status Date / Time No Known Allergies Allergy Verified 05/15/22 10:46 Active Medications: Current Medications Acetaminophen (Acetaminophen 325 Mg Tablet) 650 mg PO Q6H PRN PRN Reason: Pain, Mild (Pain Scale 1-3) Docusate Sodium (Docusate Sodium 100 Mg Capsule) 100 mg PO DAILY PRN PRN Reason: Constipation Enoxaparin Sodium (Enoxaparin Sodium 40 Mg/0.4 Ml Syringe) 40 mg SUBCUT Q24H DAV Folic Acid (Folic Acid 1 Mg Tablet) 1 mg PO DAILY [facility] Lactated Ringer's (Lr) 1,000 mls @ 100 mls/hr IVCONT .Q10H DAV Ceftriaxone Sodium 1 gm/ (Sodium Chloride) 50 mls @ 100 mls/hr IV Q24H DAV Ondansetron HCl (Ondansetron Hcl 4 Mg/2 Ml Vial) 4 mg IVPUSH Q8H PRN PRN Reason: Nausea and Vomiting Pharmacy Consult (Consult Rx Etoh Phenob Po Only) 1 each MISCELLANE ONCE PRN; Protocol PRN Reason: Consult order Phenobarbital (Phenobarbital 15 Mg Tablet) 45 mg PO BID [facility] Stop: 06/13/22 21:01 Phenobarbital (Phenobarbital 30 Mg Tablet) 30 mg PO BID [facility] Stop: 06/15/22 21:01 Phenobarbital (Phenobarbital 15 Mg Tablet) 15 mg PO DAILY [facility] Stop: 06/17/22 09:01 Phenobarbital Sodium (Phenobarbital Sodium 130 Mg/Ml Vial Im Q3hx2) 157 mg IM Q3H [facility] Stop: 06/12/22 02:01 Sodium Chloride (0.9 % Sodium Chloride Flush 3 Ml Syringe) 3 ml IVFLUSH QSHIFT [facility] Thiamine HCl (Thiamine Hcl 100 Mg Tablet) 100 mg PO DAILY [facility] Home Medications Medication Instructions Recorded Confirmed Last Taken Type mirtazapine 45 mg tablet 45 mg PO BEDTIME 06/11/22 06/11/22 Unknown History Physical Exam Vital Signs and Narrative: Vital Signs: Last Vital Signs Temp 98.5 F 06/11/22 15:40 Pulse 130 H 06/11/22 17:48 Resp 20 06/11/22 17:48 BP 118/91 H 06/11/22 17:48 Pulse Ox 97 06/11/22 17:48 O2 Del Method Room Air 06/11/22 17:48 BMI result Body Mass Index 24.1 Const: Other: Somnolent but arousable Eyes: General: appearance normal, both eyes and all related structures Resp: Effort & Inspection: normal respiratory effort Auscultation: clear to auscultation bilaterally Cardio: Rate: regular rate Rhythm: regular rhythm GI: Palpation (GI): Soft to palpation Auscultation: normal bowel sounds Skin: General skin exam: no rashes or lesions noted Neuro: Cognition (Neuro): normal cognition Extrem: General: Yes normal to inspection and Yes no pedal edema Results Labs 06/11/22 16:21 06/11/22 21:58 Labs: Laboratory Results - last 24 hr 06/11/22 06/11/22 06/11/22 16:20 16:20 16:20 MCV MCH MCHC RDW Plt Count MPV Immature Gran % (Auto) Neut % (Auto) Lymph % (Auto) [place] % (Auto) Eos % (Auto) Baso % (Auto) Lymph # (Auto) [place] # (Auto) Eos # (Auto) Baso # (Auto) Abs Immat Gran (auto) Absolute Neuts (auto) Absolute Nucleated RBC Nucleated RBC % (auto) PT 10.2 INR 0.9 O2 Saturation ABG pH at Pt Temp ABG pCO2 at Pt Temp ABG pO2 at Pt Temp ABG HCO3 ABG Base Excess (Actual) Anion Gap Estim Creat Clear Calc Estimated GFR Random Glucose Osmolality Lactic Acid 7.4 H* Lactic Acid F/U @ 2Hr Lactic Acid F/U @ 4Hr Calcium Magnesium Total Bilirubin Direct Bilirubin AST ALT Alkaline Phosphatase Ammonia 41 Total Creatine Kinase Troponin I High Sens B-Natriuretic Peptide Total Protein Albumin Ethyl Alcohol Influenza Type A (PCR) Influenza Type B (PCR) RSV RNA Qual (PCR) SARS-CoV-2 RNA (RT-PCR) 06/11/22 06/11/22 06/11/22 16:21 16:21 16:21 MCV 87.8 MCH 31.5 MCHC 35.8 H RDW 14.6 Plt Count 53 L D MPV 10.9 Immature Gran % (Auto) 0.4 Neut % (Auto) 82.3 H Lymph % (Auto) 11.5 L [place] % (Auto) 5.2 Eos % (Auto) 0.2 Baso % (Auto) 0.4 Lymph # (Auto) 0.6 L [place] # (Auto) 0.3 Eos # (Auto) 0.0 Baso # (Auto) 0.0 Abs Immat Gran (auto) 0.02 Absolute Neuts (auto) 4.2 Absolute Nucleated RBC 0.000 Nucleated RBC % (auto) 0.0 PT INR O2 Saturation ABG pH at Pt Temp ABG pCO2 at Pt Temp ABG pO2 at Pt Temp ABG HCO3 ABG Base Excess (Actual) Anion Gap 28 H Estim Creat Clear Calc 61.8 Estimated GFR > 60 Random Glucose 182 H Osmolality Lactic Acid Lactic Acid F/U @ 2Hr Lactic Acid F/U @ 4Hr Calcium 7.8 L D Magnesium 1.6 Total Bilirubin 1.2 H Direct Bilirubin 0.6 H AST 230 H ALT 167 H Alkaline Phosphatase 74 Ammonia Total Creatine Kinase 914 H Troponin I High Sens 36.2 H B-Natriuretic Peptide Total Protein 7.0 Albumin 4.0 Ethyl Alcohol Influenza Type A (PCR) Influenza Type B (PCR) RSV RNA Qual (PCR) SARS-CoV-2 RNA (RT-PCR) 06/11/22 06/11/22 06/11/22 16:21 16:22 16:22 MCV MCH MCHC RDW Plt Count MPV Immature Gran % (Auto) Neut % (Auto) Lymph % (Auto) [place] % (Auto) Eos % (Auto) Baso % (Auto) Lymph # (Auto) [place] # (Auto) Eos # (Auto) Baso # (Auto) Abs Immat Gran (auto) Absolute Neuts (auto) Absolute Nucleated RBC Nucleated RBC % (auto) PT INR O2 Saturation ABG pH at Pt Temp ABG pCO2 at Pt Temp ABG pO2 at Pt Temp ABG HCO3 ABG Base Excess (Actual) Anion Gap Estim Creat Clear Calc Estimated GFR Random Glucose Osmolality 352 H Lactic Acid Lactic Acid F/U @ 2Hr Lactic Acid F/U @ 4Hr Calcium Magnesium Total Bilirubin Direct Bilirubin AST ALT Alkaline Phosphatase Ammonia Total Creatine Kinase Troponin I High Sens B-Natriuretic Peptide < 10 Total Protein Albumin Ethyl Alcohol Influenza Type A (PCR) NEGATIVE Influenza Type B (PCR) NEGATIVE RSV RNA Qual (PCR) NEGATIVE SARS-CoV-2 RNA (RT-PCR) NEGATIVE 06/11/22 06/11/22 06/11/22 16:22 19:43 19:45 MCV MCH MCHC RDW Plt Count MPV Immature Gran % (Auto) Neut % (Auto) Lymph % (Auto) [place] % (Auto) Eos % (Auto) Baso % (Auto) Lymph # (Auto) [place] # (Auto) Eos # (Auto) Baso # (Auto) Abs Immat Gran (auto) Absolute Neuts (auto) Absolute Nucleated RBC Nucleated RBC % (auto) PT INR O2 Saturation ABG pH at Pt Temp ABG pCO2 at Pt Temp ABG pO2 at Pt Temp ABG HCO3 ABG Base Excess (Actual) Anion Gap 23 H Estim Creat Clear Calc 71.1 Estimated GFR > 60 Random Glucose 116 H Osmolality Lactic Acid Lactic Acid F/U @ 2Hr 5.2 H* Lactic Acid F/U @ 4Hr Calcium 6.7 L D Magnesium Total Bilirubin 0.9 Direct Bilirubin AST 177 H ALT 135 H Alkaline Phosphatase 62 Ammonia Total Creatine Kinase Troponin I High Sens B-Natriuretic Peptide Total Protein 5.9 L Albumin 3.3 L Ethyl Alcohol 256 Influenza Type A (PCR) Influenza Type B (PCR) RSV RNA Qual (PCR) SARS-CoV-2 RNA (RT-PCR) 06/11/22 06/11/22 06/11/22 19:46 20:05 21:58 MCV MCH MCHC RDW Plt Count MPV Immature Gran % (Auto) Neut % (Auto) Lymph % (Auto) [place] % (Auto) Eos % (Auto) Baso % (Auto) Lymph # (Auto) [place] # (Auto) Eos # (Auto) Baso # (Auto) Abs Immat Gran (auto) Absolute Neuts (auto) Absolute Nucleated RBC Nucleated RBC % (auto) PT INR O2 Saturation 99.0 ABG pH at Pt Temp 7.46 H ABG pCO2 at Pt Temp 25 L ABG pO2 at Pt Temp 119 H ABG HCO3 18 L ABG Base Excess (Actual) -3.3 Anion Gap 18 Estim Creat Clear Calc 74.8 Estimated GFR > 60 Random Glucose 121 H Osmolality Lactic Acid Lactic Acid F/U @ 2Hr Lactic Acid F/U @ 4Hr Calcium 6.7 L Magnesium Total Bilirubin Direct Bilirubin AST ALT Alkaline Phosphatase Ammonia Total Creatine Kinase Troponin I High Sens 49.9 H B-Natriuretic Peptide Total Protein Albumin Ethyl Alcohol Influenza Type A (PCR) Influenza Type B (PCR) RSV RNA Qual (PCR) SARS-CoV-2 RNA (RT-PCR) 06/11/22 21:58 MCV MCH MCHC RDW Plt Count MPV Immature Gran % (Auto) Neut % (Auto) Lymph % (Auto) [place] % (Auto) Eos % (Auto) Baso % (Auto) Lymph # (Auto) [place] # (Auto) Eos # (Auto) Baso # (Auto) Abs Immat Gran (auto) Absolute Neuts (auto) Absolute Nucleated RBC Nucleated RBC % (auto) PT INR O2 Saturation ABG pH at Pt Temp ABG pCO2 at Pt Temp ABG pO2 at Pt Temp ABG HCO3 ABG Base Excess (Actual) Anion Gap Estim Creat Clear Calc Estimated GFR Random Glucose Osmolality Lactic Acid Lactic Acid F/U @ 2Hr Lactic Acid F/U @ 4Hr 3.0 H* Calcium Magnesium Total Bilirubin Direct Bilirubin AST ALT Alkaline Phosphatase Ammonia Total Creatine Kinase Troponin I High Sens B-Natriuretic Peptide Total Protein Albumin Ethyl Alcohol Influenza Type A (PCR) Influenza Type B (PCR) RSV RNA Qual (PCR) SARS-CoV-2 RNA (RT-PCR) Imaging Radiologist's Impressions: Impressions Chest X-Ray 06/11/22 16:50 IMPRESSION: Low lung volumes with atelectasis. Head CT 06/11/22 16:54 IMPRESSION: No acute process Chronic microvascular ischemic changes Left-sided sinus disease Assessment and Plan (1) Alcohol withdrawal: Status: Acute (2) Alcoholic ketoacidosis: Status: Acute Plan 72-year-old female with past medical history of alcohol abuse presents to the hospital with complaints of increased weakness, poor oral intake, and alcohol abuse # alcohol abuse with withdrawals - start on phenobarb protocol - thiamine and folic acid - monitor withdrawal symptoms # alcoholic ketoacidosis - elevated lactic acid - no evidence of acute infection - treated with IV fluids with improvements - trend DVT prophylaxis: Lovenox Given severe alcohol withdrawal patient will require admission for monitoring and treatment with phenobarb Time Spent With Patient Time: Total time managing care of this patient today ____ minutes. Quality Stroke Does the patient have a stroke diagnosis?: No VTE Prior VTE?: No VTE Risk Level:: Medical - moderate - high VTE Device Contraindication: Treatment Not Indicated VTE Drug Contraindication: N/A - Med Ordered
[2022-06-11 23:41] VITALS: BP 126/95; PULSE 117; RESP 18; TEMP 36.3; O2SAT 95
[2022-06-11] MEDS: PHENobarbitaL sodium 130 MG/ML VIAL IM Q3Hx2 157 MG IM (23:48)
[2022-06-11] MEDS: Enoxaparin Sodium 40 MG/0.4 ML SYRINGE SUBCUT (23:50)
[2022-06-12] VITALS (7 sets, daily range): BP systolic 120–188; BP diastolic 42–93; PULSE 76–124; RESP 18–40; TEMP 36.1–37.1; O2SAT 96–100
[2022-06-12] MEDS: Lactated Ringers 1,000 ML 100 ML IVCONT ×3 (00:02→17:55)
[2022-06-12] MEDS: ondansetron HCL 4 MG/2 ML VIAL IVPUSH (02:44)
[2022-06-12] MEDS: PHENobarbitaL sodium 130 MG/ML VIAL IM Q3Hx2 157 MG IM (02:45)
[2022-06-12 04:42] LABS: Appearance Urine Clear; Color Urine Yellow; Glucose Urine UA Negative (Negative); Leukocyte Esterase Urine Negative (Negative); Nitrite Urine Negative (Negative); Specific Gravity - Urine 1.025 (1.005-1.025); UMIC TRIGGER UACC YES; Urine Blood Moderate (2+) (Negative); Urine Ketones 40 mg/dL (Negative); Urine Protein Trace mg/dL (Neg-Trace)
[2022-06-12 04:46] LABS: Bacteria Urine 1+ (None Seen); Hyaline Casts Urine 0-2 /LPF (0-2); Squamous Epithelial Cell Urine 0-2 /HPF (0-2); WBC Urine 0-5 /HPF (0-5)
[2022-06-12 04:50] LABS: Creatinine Urine 95.74 mg/dL; Potassium Urine Random 86.3 mmol/L
[2022-06-12 04:53] LABS: Amphetamine Screen Urine Not Detected (Not Detect); Barbiturates, Urine POSITIVE (Not Detect); Benzodiazepines Screen Urine POSITIVE (Not Detect); Cannabinoid Screen Urine Not Detected (Not Detect); Cocaine Screen Urine Not Detected (Not Detect); Fentanyl, urine Not Detected (Not Detect); Opiate Screen Urine Not Detected (Not Detect); Phencyclidine Screen Urine Not Detected (Not Detect)
[2022-06-12 04:55] LABS: Osmolality Urine 773 mosm/kg (373-1093)
[2022-06-12] MEDS: PHENobarbitaL sodium 130 MG/ML VIAL 210 MG IVPUSH (07:50)
[2022-06-12 08:23] LABS: MANUAL DIFF FLAG NO
[2022-06-12 08:26] LABS: Basophils Percent Auto 0.6 % (0-2); Eosinophils Percent Auto 0.3 % (0-4); Hematocrit 36.4 % (37.0-47.0); Hemoglobin 12.7 g/dl (12.0-16.0); Imm Gran Abs Auto 0.01 X10*3/uL (0.00-0.03); Imm Gran Pct Auto 0.3 % (0.0-0.4); Lymphocytes Absolute Auto 0.8 X10*3/uL (1.2-4.9); Lymphocytes Percent Auto 25.2 % (20-40); Mean Corpuscular HGB Conc 34.9 g/dl (31.0-35.0); Mean Corpuscular Hemoglobin 31.4 pg (27.0-33.0); Mean Corpuscular Volume 89.9 fL (80.0-98.0); Monocytes Absolute Auto 0.3 X10*3/uL (0.1-1.2); Monocytes Percent Auto 8.1 % (2-11); Neutrophils Absolute Auto 2.2 x10*3/uL (2.0-8.3); Neutrophils Percent Auto 65.5 % (45-73); Red Blood Count 4.05 X10*6/uL (4.20-5.50); Red Cell Distribution Width 14.8 % (11.0-16.0); White Blood Count 3.3 X10*3/uL (4.8-10.8)
[2022-06-12 08:46] LABS: Lactic Acid 2.8 mmol/L (0.5-2.0)
[2022-06-12 08:47] LABS: Troponin-I High Sensitivity 30.4 ng/L (<3.5-17.0)
[2022-06-12] MEDS: Thiamine HCL 100 MG TABLET PO (09:10)
[2022-06-12] MEDS: PHENobarbitaL 15 MG TABLET 45 MG PO ×2 (09:10→20:40)
[2022-06-12] MEDS: Folic Acid 1 MG TABLET PO (09:10)
[2022-06-12] MEDS: Naltrexone HCl 50 MG TABLET PO (09:10)
--- NOTE | 2022-06-12 09:12 | MHC.CM.PN ---
Patient has a CIWA score of 21; CM spoke with Son/HCP/Stacey @ [phone] and addressed IMM with him (original was left at bedside, per Son's request and a copy has been placed on the chart). 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 Home self care vs Recovery Team intervention r/t ETOH is the tentative plan and CM has initiated and will follow for dc planning. Patient has received Covid vax x3 and her PCP is Dr. Montez Loya.
[2022-06-12 09:16] LABS: Platelet Count 29 X10*3/uL (160-400)
[2022-06-12 10:21] LABS: Reflex Lactate? Lactic Acid Added
[2022-06-12 11:11] LABS: ~Lactic Acid-LAB USE ONLY 1.1 mmol/L (0.5-2.0)
--- NOTE | 2022-06-12 14:58 | P.PNIM_ITS ---
Subjective Subjective Date of Service: 06/12/22 Interval History: Confused; loosened at times. Followed on CIWA scale Review of Systems Unable to obtain Physical Exam Vital Signs: Vital Signs: Last Vital Signs Temp 97.3 F 06/12/22 11:45 Pulse 112 H 06/12/22 11:45 Resp 20 06/12/22 11:45 BP 188/86 H 06/12/22 09:20 Pulse Ox 99 06/12/22 11:45 O2 Del Method Room Air 06/12/22 11:45 BMI result Body Mass Index 24.1 Const: Other: No acute distress Resp: Other: Clear to auscultation bilaterally no rales rhonchi wheezes Cardio: Other: No S4; positive S1-S2; no S3 murmurs rubs or gallops GI: Other: Soft nontender nondistended normoactive bowel sounds Extrem: Other: No edema bilaterally Objective Data Active Medications Acetaminophen (Acetaminophen 325 Mg Tablet) 650 mg PO Q6H PRN PRN Reason: Pain, Mild (Pain Scale 1-3) Docusate Sodium (Docusate Sodium 100 Mg Capsule) 100 mg PO DAILY PRN PRN Reason: Constipation Enoxaparin Sodium (Enoxaparin Sodium 40 Mg/0.4 Ml Syringe) 40 mg SUBCUT Q24H [facility] Last Admin: 06/11/22 23:50 Dose: 40 mg Documented By: SERGIO Folic Acid (Folic Acid 1 Mg Tablet) 1 mg PO DAILY [facility] Last Admin: 06/12/22 09:10 Dose: 1 mg Documented By: XIOMARA Lactated Ringer's (Lr) 1,000 mls @ 100 mls/hr IVCONT .Q10H [facility] Last Admin: 06/12/22 07:50 Dose: 100 mls/hr Documented By: HOMERO Ceftriaxone Sodium 1 gm/ (Sodium Chloride) 50 mls @ 100 mls/hr IV Q24H [facility] Mirtazapine (Mirtazapine 15 Mg Tablet) 45 mg PO BEDTIME [facility] Naltrexone HCl (Naltrexone Hcl 50 Mg Tablet) 50 mg PO DAILY [facility] Last Admin: 06/12/22 09:10 Dose: 50 mg Documented By: XIOMARA Ondansetron HCl (Ondansetron Hcl 4 Mg/2 Ml Vial) 4 mg IVPUSH Q8H PRN PRN Reason: Nausea and Vomiting Last Admin: 06/12/22 02:44 Dose: 4 mg Documented By: SERGIO Pharmacy Consult (Consult Rx Etoh Phenob Po Only) 1 each MISCELLANE ONCE PRN; Protocol PRN Reason: Consult order Phenobarbital (Phenobarbital 15 Mg Tablet) 45 mg PO BID [facility] Stop: 06/13/22 21:01 Last Admin: 06/12/22 09:10 Dose: 45 mg Documented By: XIOMARA Phenobarbital (Phenobarbital 30 Mg Tablet) 30 mg PO BID [facility] Stop: 06/15/22 21:01 Phenobarbital (Phenobarbital 15 Mg Tablet) 15 mg PO DAILY [facility] Stop: 06/17/22 09:01 Sodium Chloride (0.9 % Sodium Chloride Flush 3 Ml Syringe) 3 ml IVFLUSH QSHIFT [facility] Last Admin: 06/12/22 07:26 Dose: Not Given Documented By: HOMERO Non-Admin Reason: IV Running Thiamine HCl (Thiamine Hcl 100 Mg Tablet) 100 mg PO DAILY [facility] Last Admin: 06/12/22 09:10 Dose: 100 mg Documented By: XIOMARA Trazodone HCl (Trazodone Hcl 50 Mg Tablet) 50 mg PO BEDTIME PRN PRN Reason: Insomnia Labs 06/12/22 08:18 06/11/22 21:58 Labs: Laboratory Results - last 24 hr 06/11/22 06/11/22 06/11/22 16:20 16:20 16:20 MCV MCH MCHC RDW Plt Count MPV Immature Gran % (Auto) Neut % (Auto) Lymph % (Auto) [place] % (Auto) Eos % (Auto) Baso % (Auto) Lymph # (Auto) [place] # (Auto) Eos # (Auto) Baso # (Auto) Abs Immat Gran (auto) Absolute Neuts (auto) Absolute Nucleated RBC Nucleated RBC % (auto) PT 10.2 INR 0.9 O2 Saturation ABG pH at Pt Temp ABG pCO2 at Pt Temp ABG pO2 at Pt Temp ABG HCO3 ABG Base Excess (Actual) Anion Gap Estim Creat Clear Calc Estimated GFR Random Glucose Osmolality Lactic Acid 7.4 H* Lactic Acid F/U @ 2Hr Lactic Acid F/U @ 4Hr Calcium Magnesium Total Bilirubin Direct Bilirubin AST ALT Alkaline Phosphatase Ammonia 41 Total Creatine Kinase Troponin I High Sens B-Natriuretic Peptide Total Protein Albumin Urine Color Urine Appearance Urine pH Ur Specific [place] Urine Protein Urine Glucose (UA) Urine Ketones Urine Blood Urine Nitrite Ur Leukocyte Esterase Urine RBC Urine WBC Ur Squamous Epith Cells Urine Bacteria Hyaline Casts Urine Osmolality Ur Random Sodium Ur Random Potassium Ur Random Chloride Urine Creatinine Urine Opiates Screen Urine Fentanyl Screen Ur Barbiturates Screen Ur Phencyclidine Scrn Ur Amphetamines Screen U Benzodiazepines Scrn Urine Cocaine Screen U Marijuana (THC) Screen Ethyl Alcohol Influenza Type A (PCR) Influenza Type B (PCR) RSV RNA Qual (PCR) SARS-CoV-2 RNA (RT-PCR) 06/11/22 06/11/22 06/11/22 16:21 16:21 16:21 MCV 87.8 MCH 31.5 MCHC 35.8 H RDW 14.6 Plt Count 53 L D MPV 10.9 Immature Gran % (Auto) 0.4 Neut % (Auto) 82.3 H Lymph % (Auto) 11.5 L [place] % (Auto) 5.2 Eos % (Auto) 0.2 Baso % (Auto) 0.4 Lymph # (Auto) 0.6 L [place] # (Auto) 0.3 Eos # (Auto) 0.0 Baso # (Auto) 0.0 Abs Immat Gran (auto) 0.02 Absolute Neuts (auto) 4.2 Absolute Nucleated RBC 0.000 Nucleated RBC % (auto) 0.0 PT INR O2 Saturation ABG pH at Pt Temp ABG pCO2 at Pt Temp ABG pO2 at Pt Temp ABG HCO3 ABG Base Excess (Actual) Anion Gap 28 H Estim Creat Clear Calc 61.8 Estimated GFR > 60 Random Glucose 182 H Osmolality Lactic Acid Lactic Acid F/U @ 2Hr Lactic Acid F/U @ 4Hr Calcium 7.8 L D Magnesium 1.6 Total Bilirubin 1.2 H Direct Bilirubin 0.6 H AST 230 H ALT 167 H Alkaline Phosphatase 74 Ammonia Total Creatine Kinase 914 H Troponin I High Sens 36.2 H B-Natriuretic Peptide Total Protein 7.0 Albumin 4.0 Urine Color Urine Appearance Urine pH Ur Specific [place] Urine Protein Urine Glucose (UA) Urine Ketones Urine Blood Urine Nitrite Ur Leukocyte Esterase Urine RBC Urine WBC Ur Squamous Epith Cells Urine Bacteria Hyaline Casts Urine Osmolality Ur Random Sodium Ur Random Potassium Ur Random Chloride Urine Creatinine Urine Opiates Screen Urine Fentanyl Screen Ur Barbiturates Screen Ur Phencyclidine Scrn Ur Amphetamines Screen U Benzodiazepines Scrn Urine Cocaine Screen U Marijuana (THC) Screen Ethyl Alcohol Influenza Type A (PCR) Influenza Type B (PCR) RSV RNA Qual (PCR) SARS-CoV-2 RNA (RT-PCR) 06/11/22 06/11/22 06/11/22 16:21 16:22 16:22 MCV MCH MCHC RDW Plt Count MPV Immature Gran % (Auto) Neut % (Auto) Lymph % (Auto) [place] % (Auto) Eos % (Auto) Baso % (Auto) Lymph # (Auto) [place] # (Auto) Eos # (Auto) Baso # (Auto) Abs Immat Gran (auto) Absolute Neuts (auto) Absolute Nucleated RBC Nucleated RBC % (auto) PT INR O2 Saturation ABG pH at Pt Temp ABG pCO2 at Pt Temp ABG pO2 at Pt Temp ABG HCO3 ABG Base Excess (Actual) Anion Gap Estim Creat Clear Calc Estimated GFR Random Glucose Osmolality 352 H Lactic Acid Lactic Acid F/U @ 2Hr Lactic Acid F/U @ 4Hr Calcium Magnesium Total Bilirubin Direct Bilirubin AST ALT Alkaline Phosphatase Ammonia Total Creatine Kinase Troponin I High Sens B-Natriuretic Peptide < 10 Total Protein Albumin Urine Color Urine Appearance Urine pH Ur Specific [place] Urine Protein Urine Glucose (UA) Urine Ketones Urine Blood Urine Nitrite Ur Leukocyte Esterase Urine RBC Urine WBC Ur Squamous Epith Cells Urine Bacteria Hyaline Casts Urine Osmolality Ur Random Sodium Ur Random Potassium Ur Random Chloride Urine Creatinine Urine Opiates Screen Urine Fentanyl Screen Ur Barbiturates Screen Ur Phencyclidine Scrn Ur Amphetamines Screen U Benzodiazepines Scrn Urine Cocaine Screen U Marijuana (THC) Screen Ethyl Alcohol Influenza Type A (PCR) NEGATIVE Influenza Type B (PCR) NEGATIVE RSV RNA Qual (PCR) NEGATIVE SARS-CoV-2 RNA (RT-PCR) NEGATIVE 06/11/22 06/11/22 06/11/22 16:22 19:43 19:45 MCV MCH MCHC RDW Plt Count MPV Immature Gran % (Auto) Neut % (Auto) Lymph % (Auto) [place] % (Auto) Eos % (Auto) Baso % (Auto) Lymph # (Auto) [place] # (Auto) Eos # (Auto) Baso # (Auto) Abs Immat Gran (auto) Absolute Neuts (auto) Absolute Nucleated RBC Nucleated RBC % (auto) PT INR O2 Saturation ABG pH at Pt Temp ABG pCO2 at Pt Temp ABG pO2 at Pt Temp ABG HCO3 ABG Base Excess (Actual) Anion Gap 23 H Estim Creat Clear Calc 71.1 Estimated GFR > 60 Random Glucose 116 H Osmolality Lactic Acid Lactic Acid F/U @ 2Hr 5.2 H* Lactic Acid F/U @ 4Hr Calcium 6.7 L D Magnesium Total Bilirubin 0.9 Direct Bilirubin AST 177 H ALT 135 H Alkaline Phosphatase 62 Ammonia Total Creatine Kinase Troponin I High Sens B-Natriuretic Peptide Total Protein 5.9 L Albumin 3.3 L Urine Color Urine Appearance Urine pH Ur Specific [place] Urine Protein Urine Glucose (UA) Urine Ketones Urine Blood Urine Nitrite Ur Leukocyte Esterase Urine RBC Urine WBC Ur Squamous Epith Cells Urine Bacteria Hyaline Casts Urine Osmolality Ur Random Sodium Ur Random Potassium Ur Random Chloride Urine Creatinine Urine Opiates Screen Urine Fentanyl Screen Ur Barbiturates Screen Ur Phencyclidine Scrn Ur Amphetamines Screen U Benzodiazepines Scrn Urine Cocaine Screen U Marijuana (THC) Screen Ethyl Alcohol 256 Influenza Type A (PCR) Influenza Type B (PCR) RSV RNA Qual (PCR) SARS-CoV-2 RNA (RT-PCR) 06/11/22 06/11/22 06/11/22 19:46 20:05 21:58 MCV MCH MCHC RDW Plt Count MPV Immature Gran % (Auto) Neut % (Auto) Lymph % (Auto) [place] % (Auto) Eos % (Auto) Baso % (Auto) Lymph # (Auto) [place] # (Auto) Eos # (Auto) Baso # (Auto) Abs Immat Gran (auto) Absolute Neuts (auto) Absolute Nucleated RBC Nucleated RBC % (auto) PT INR O2 Saturation 99.0 ABG pH at Pt Temp 7.46 H ABG pCO2 at Pt Temp 25 L ABG pO2 at Pt Temp 119 H ABG HCO3 18 L ABG Base Excess (Actual) -3.3 Anion Gap 18 Estim Creat Clear Calc 74.8 Estimated GFR > 60 Random Glucose 121 H Osmolality Lactic Acid Lactic Acid F/U @ 2Hr Lactic Acid F/U @ 4Hr Calcium 6.7 L Magnesium Total Bilirubin Direct Bilirubin AST ALT Alkaline Phosphatase Ammonia Total Creatine Kinase Troponin I High Sens 49.9 H B-Natriuretic Peptide Total Protein Albumin Urine Color Urine Appearance Urine pH Ur Specific [place] Urine Protein Urine Glucose (UA) Urine Ketones Urine Blood Urine Nitrite Ur Leukocyte Esterase Urine RBC Urine WBC Ur Squamous Epith Cells Urine Bacteria Hyaline Casts Urine Osmolality Ur Random Sodium Ur Random Potassium Ur Random Chloride Urine Creatinine Urine Opiates Screen Urine Fentanyl Screen Ur Barbiturates Screen Ur Phencyclidine Scrn Ur Amphetamines Screen U Benzodiazepines Scrn Urine Cocaine Screen U Marijuana (THC) Screen Ethyl Alcohol Influenza Type A (PCR) Influenza Type B (PCR) RSV RNA Qual (PCR) SARS-CoV-2 RNA (RT-PCR) 06/11/22 06/12/22 06/12/22 21:58 04:33 04:33 MCV MCH MCHC RDW Plt Count MPV Immature Gran % (Auto) Neut % (Auto) Lymph % (Auto) [place] % (Auto) Eos % (Auto) Baso % (Auto) Lymph # (Auto) [place] # (Auto) Eos # (Auto) Baso # (Auto) Abs Immat Gran (auto) Absolute Neuts (auto) Absolute Nucleated RBC Nucleated RBC % (auto) PT INR O2 Saturation ABG pH at Pt Temp ABG pCO2 at Pt Temp ABG pO2 at Pt Temp ABG HCO3 ABG Base Excess (Actual) Anion Gap Estim Creat Clear Calc Estimated GFR Random Glucose Osmolality Lactic Acid Lactic Acid F/U @ 2Hr Lactic Acid F/U @ 4Hr 3.0 H* Calcium Magnesium Total Bilirubin Direct Bilirubin AST ALT Alkaline Phosphatase Ammonia Total Creatine Kinase Troponin I High Sens B-Natriuretic Peptide Total Protein Albumin Urine Color Urine Appearance Urine pH Ur Specific [place] Urine Protein Urine Glucose (UA) Urine Ketones Urine Blood Urine Nitrite Ur Leukocyte Esterase Urine RBC Urine WBC Ur Squamous Epith Cells Urine Bacteria Hyaline Casts Urine Osmolality 773 Ur Random Sodium 123.0 Ur Random Potassium 86.3 Ur Random Chloride 207.0 Urine Creatinine 95.74 Urine Opiates Screen Urine Fentanyl Screen Ur Barbiturates Screen Ur Phencyclidine Scrn Ur Amphetamines Screen U Benzodiazepines Scrn Urine Cocaine Screen U Marijuana (THC) Screen Ethyl Alcohol Influenza Type A (PCR) Influenza Type B (PCR) RSV RNA Qual (PCR) SARS-CoV-2 RNA (RT-PCR) 06/12/22 06/12/22 06/12/22 04:33 04:33 08:18 MCV 89.9 MCH 31.4 MCHC 34.9 RDW 14.8 Plt Count 29 L D MPV Not Reportable Immature Gran % (Auto) 0.3 Neut % (Auto) 65.5 Lymph % (Auto) 25.2 [place] % (Auto) 8.1 Eos % (Auto) 0.3 Baso % (Auto) 0.6 Lymph # (Auto) 0.8 L [place] # (Auto) 0.3 Eos # (Auto) 0.0 Baso # (Auto) 0.0 Abs Immat Gran (auto) 0.01 Absolute Neuts (auto) 2.2 Absolute Nucleated RBC 0.000 Nucleated RBC % (auto) 0.0 PT INR O2 Saturation ABG pH at Pt Temp ABG pCO2 at Pt Temp ABG pO2 at Pt Temp ABG HCO3 ABG Base Excess (Actual) Anion Gap Estim Creat Clear Calc Estimated GFR Random Glucose Osmolality Lactic Acid Lactic Acid F/U @ 2Hr Lactic Acid F/U @ 4Hr Calcium Magnesium Total Bilirubin Direct Bilirubin AST ALT Alkaline Phosphatase Ammonia Total Creatine Kinase Troponin I High Sens B-Natriuretic Peptide Total Protein Albumin Urine Color Yellow Urine Appearance Clear Urine pH 6.0 Ur Specific [place] 1.025 Urine Protein Trace Urine Glucose (UA) Negative Urine Ketones 40 Urine Blood Moderate (2+) H Urine Nitrite Negative Ur Leukocyte Esterase Negative Urine RBC 3-5 H Urine WBC 0-5 Ur Squamous Epith Cells 0-2 Urine Bacteria 1+ Hyaline Casts 0-2 Urine Osmolality Ur Random Sodium Ur Random Potassium Ur Random Chloride Urine Creatinine Urine Opiates Screen Not Detected Urine Fentanyl Screen Not Detected Ur Barbiturates Screen POSITIVE H Ur Phencyclidine Scrn Not Detected Ur Amphetamines Screen Not Detected U Benzodiazepines Scrn POSITIVE H Urine Cocaine Screen Not Detected U Marijuana (THC) Screen Not Detected Ethyl Alcohol Influenza Type A (PCR) Influenza Type B (PCR) RSV RNA Qual (PCR) SARS-CoV-2 RNA (RT-PCR) 06/12/22 06/12/22 06/12/22 08:18 08:18 10:42 MCV MCH MCHC RDW Plt Count MPV Immature Gran % (Auto) Neut % (Auto) Lymph % (Auto) [place] % (Auto) Eos % (Auto) Baso % (Auto) Lymph # (Auto) [place] # (Auto) Eos # (Auto) Baso # (Auto) Abs Immat Gran (auto) Absolute Neuts (auto) Absolute Nucleated RBC Nucleated RBC % (auto) PT INR O2 Saturation ABG pH at Pt Temp ABG pCO2 at Pt Temp ABG pO2 at Pt Temp ABG HCO3 ABG Base Excess (Actual) Anion Gap Estim Creat Clear Calc Estimated GFR Random Glucose Osmolality Lactic Acid 2.8 H* Lactic Acid F/U @ 2Hr 1.1 Lactic Acid F/U @ 4Hr Calcium Magnesium Total Bilirubin Direct Bilirubin AST ALT Alkaline Phosphatase Ammonia Total Creatine Kinase Troponin I High Sens 30.4 H B-Natriuretic Peptide Total Protein Albumin Urine Color Urine Appearance Urine pH Ur Specific [place] Urine Protein Urine Glucose (UA) Urine Ketones Urine Blood Urine Nitrite Ur Leukocyte Esterase Urine RBC Urine WBC Ur Squamous Epith Cells Urine Bacteria Hyaline Casts Urine Osmolality Ur Random Sodium Ur Random Potassium Ur Random Chloride Urine Creatinine Urine Opiates Screen Urine Fentanyl Screen Ur Barbiturates Screen Ur Phencyclidine Scrn Ur Amphetamines Screen U Benzodiazepines Scrn Urine Cocaine Screen U Marijuana (THC) Screen Ethyl Alcohol Influenza Type A (PCR) Influenza Type B (PCR) RSV RNA Qual (PCR) SARS-CoV-2 RNA (RT-PCR) Assessment and Plan (1) Alcohol withdrawal: Status: Acute Plan 72-year-old female with past medical history of alcohol abuse presents to the hospital with complaints of increased weakness, poor oral intake, and alcohol abuse...in active withdrawal 1.Alcohol abuse with withdrawals - continue CIWA scale/for phenobarbital protocol - thiamine and folic acid - seizure precautions 2.Alcoholic ketoacidosis - resolved -continue IV fluids -follow renal/divalents Lovenox Full code Requires ongoing hospitalization for CIWA protocol to treat alcohol withdrawal Time Spent With Patient Time: Total time managing care of this patient today ____ minutes. Quality Stroke Does the patient have a stroke diagnosis?: No VTE Prior VTE?: No VTE Risk Level:: Medical - moderate - high VTE Device Contraindication: Treatment Not Indicated VTE Drug Contraindication: N/A - Med Ordered
[2022-06-12] MEDS: cefTRIAXone sodium 1 GM in 0.9 % Sodium Chloride 50 ML IV (17:42)
[2022-06-12] MEDS: Mirtazapine 15 MG TABLET 45 MG PO (20:40)
[2022-06-12] MEDS: Enoxaparin Sodium 40 MG/0.4 ML SYRINGE SUBCUT (20:41)
[2022-06-12] MEDS: 0.9 % Sodium Chloride Flush 3 ML SYRINGE IVFLUSH (20:44)
[2022-06-13] VITALS (9 sets, daily range): BP systolic 119–169; BP diastolic 67–98; PULSE 95–116; RESP 17–20; TEMP 36.1–37.4; O2SAT 96–99
[2022-06-13] MEDS: Lactated Ringers 1,000 ML 100 ML IVCONT (03:01)
[2022-06-13] MEDS: PHENobarbitaL 15 MG TABLET 45 MG PO ×2 (09:18→20:24)
[2022-06-13] MEDS: Thiamine HCL 100 MG TABLET PO (09:19)
[2022-06-13] MEDS: 0.9 % Sodium Chloride Flush 3 ML SYRINGE IVFLUSH (09:19)
[2022-06-13] MEDS: Naltrexone HCl 50 MG TABLET PO (09:19)
[2022-06-13] MEDS: Folic Acid 1 MG TABLET PO (09:19)
--- NOTE | 2022-06-13 11:41 | MHC.RECOVRN ---
Attempted to meet with pt in [phone] after consult placed to Addiction Medicine. Pt laying in bed, attempting to get up, slightly confused. Difficult to engage in conversation. When asked about alcohol use, pt states I don't drink anymore. Pt reports she was drinking one glass of whiskey daily. Pt unable to elaborate on history. Will return when more appropriate. Discussed with Maria Fernanda May APRN.
--- NOTE | 2022-06-13 14:37 | HO.PM.IMPN ---
Subjective Subjective Date of Service: 06/13/22 Interval History: being followed for alcohol withdrawal / generalized weakness patient awake alert, feels tired and sleepy denies nausea vomiting, no appetite, aware of place and person, no acute issues overnight. Review of Systems Review of Systems: Yes all other systems are reviewed and are negative Physical Exam Vital Signs: Vital Signs: Last Vital Signs Temp 99.4 F 06/13/22 11:06 Pulse 115 H 06/13/22 11:06 Resp 20 06/13/22 11:06 BP 160/86 H 06/13/22 11:06 Pulse Ox 96 06/13/22 11:06 O2 Del Method Room Air 06/13/22 11:06 BMI result Body Mass Index 24.1 Const: Other: General resting comfortably in no acute distress. Neck supple no JVD. CVS regular rate rhythm, Respiratory lungs clear to auscultation, no respiratory distress, no wheeze, no rhonchi. Gastrointestinal abdomen soft, non tender, bowel sounds audible, no guarding , no rigidity. Extremities no edema. Neuro nonfocal ,moving all 4 extremity speech clear. Skin no rash psych appropriate affect Objective Data Active Medications Acetaminophen (Acetaminophen 325 Mg Tablet) 650 mg PO Q6H PRN PRN Reason: Pain, Mild (Pain Scale 1-3) Docusate Sodium (Docusate Sodium 100 Mg Capsule) 100 mg PO DAILY PRN PRN Reason: Constipation Enoxaparin Sodium (Enoxaparin Sodium 40 Mg/0.4 Ml Syringe) 40 mg SUBCUT Q24H [facility]END[facility] TO [facility] Last Admin: 06/12/22 20:41 Dose: 40 mg Documented By: ROVERTO Folic Acid (Folic Acid 1 Mg Tablet) 1 mg PO DAILY [facility] Last Admin: 06/13/22 09:19 Dose: 1 mg Documented By: ELIAN Lactated Ringer's (Lr) 1,000 mls @ 100 mls/hr IVCONT .Q10H [facility] Last Admin: 06/13/22 13:40 Dose: Not Given Documented By: ELIAN Non-Admin Reason: IV Running Ceftriaxone Sodium 1 gm/ (Sodium Chloride) 50 mls @ 100 mls/hr IV Q24H [facility] Last Infusion: 06/12/22 18:23 Dose: 0 mls/hr Documented By: XIOMARA Mirtazapine (Mirtazapine 15 Mg Tablet) 45 mg PO BEDTIME [facility] Last Admin: 06/12/22 20:40 Dose: 45 mg Documented By: ROVERTO Naltrexone HCl (Naltrexone Hcl 50 Mg Tablet) 50 mg PO DAILY [facility] Last Admin: 06/13/22 09:19 Dose: 50 mg Documented By: ELIAN Ondansetron HCl (Ondansetron Hcl 4 Mg/2 Ml Vial) 4 mg IVPUSH Q8H PRN PRN Reason: Nausea and Vomiting Last Admin: 06/12/22 02:44 Dose: 4 mg Documented By: SERGIO Pharmacy Consult (Consult Rx Etoh Phenob Po Only) 1 each MISCELLANE ONCE PRN; Protocol PRN Reason: Consult order Phenobarbital (Phenobarbital 15 Mg Tablet) 45 mg PO BID [facility] Stop: 06/13/22 21:01 Last Admin: 06/13/22 09:18 Dose: 45 mg Documented By: ELIAN Phenobarbital (Phenobarbital 30 Mg Tablet) 30 mg PO BID [facility] Stop: 06/15/22 21:01 Phenobarbital (Phenobarbital 15 Mg Tablet) 15 mg PO DAILY [facility] Stop: 06/17/22 09:01 Sodium Chloride (0.9 % Sodium Chloride Flush 3 Ml Syringe) 3 ml IVFLUSH QSHIFT [facility] Last Admin: 06/13/22 09:19 Dose: 3 ml Documented By: ELIAN Thiamine HCl (Thiamine Hcl 100 Mg Tablet) 100 mg PO DAILY [facility] Last Admin: 06/13/22 09:19 Dose: 100 mg Documented By: ELIAN Trazodone HCl (Trazodone Hcl 50 Mg Tablet) 50 mg PO BEDTIME PRN PRN Reason: Insomnia Labs 06/12/22 08:18 06/11/22 21:58 Microbiology Microbiology Results: Microbiology 06/11/22 16:38 Blood Culture - Preliminary Blood - Venous No growth after 24 hours. 06/11/22 16:19 Blood Culture - Preliminary Blood - Venous No growth after 24 hours. Assessment and Plan (1) Alcohol withdrawal: Status: Acute Plan 72-year-old female with past medical history of alcohol abuse presents to the hospital with complaints of increased weakness, poor oral intake, and alcohol abuse...in active withdrawal 1.Alcohol abuse with withdrawals - continue phenobarbital protocol, mild tachycardia and elevated BP - continue thiamine and folic acid, continue naltrexone - seizure precautions, recovery team consult DC IV ceftriaxone 2.Alcoholic ketoacidosis - resolved, DC IV fluids, placed on regular diet 3. alcoholic hepatitis LFTs trending down, no abdominal pain, strongly recommend to abstain from alcohol 4. mood disorder continue mitazrpine and trazodone as needed for insomnia. 5. thrombocytopenia, due to alcohol, no active bleeding noted avoid anticoagulation DC Lovenox, monitor CBC, placed on compression boots Full code Requires ongoing hospitalization for CIWA protocol to treat alcohol withdrawal Time Spent With Patient Time: Total time managing care of this patient today ____ minutes. Quality Stroke Does the patient have a stroke diagnosis?: No VTE Prior VTE?: No VTE Risk Level:: Medical - moderate - high VTE Device Contraindication: Treatment Not Indicated VTE Drug Contraindication: N/A - Med Ordered
[2022-06-13] MEDS: Mirtazapine 15 MG TABLET 45 MG PO (20:23)
[2022-06-14] MEDS: 0.9 % Sodium Chloride Flush 3 ML SYRINGE IVFLUSH ×3 (00:04→20:26)
[2022-06-14 03:29] VITALS: BP 132/64; PULSE 88; RESP 18; TEMP 37; O2SAT 96
[2022-06-14 07:17] LABS: Hematocrit 41.7 % (37.0-47.0); Hemoglobin 14.7 g/dl (12.0-16.0); Mean Corpuscular HGB Conc 35.3 g/dl (31.0-35.0); Mean Corpuscular Hemoglobin 31.8 pg (27.0-33.0); Mean Corpuscular Volume 90.3 fL (80.0-98.0); Mean Platelet Volume 13.8 fL (9.4-12.3); Red Blood Count 4.62 X10*6/uL (4.20-5.50); Red Cell Distribution Width 14.3 % (11.0-16.0); White Blood Count 3.5 X10*3/uL (4.8-10.8)
[2022-06-14 07:18] LABS: Platelet Count 29 X10*3/uL (160-400)
[2022-06-14 07:24] VITALS: BP 126/77; PULSE 96; RESP 16; TEMP 36.6; O2SAT 99
[2022-06-14 07:46] LABS: Alanine Aminotransferase 163 U/L (0-31); Albumin Level 3.4 g/dL (3.5-5.0); Alkaline Phosphatase 71 U/L (39-117); Aspartate Amino Transferase 264 U/L (5-31); Bilirubin Direct 0.7 mg/dL (0.0-0.5); Bilirubin Total 1.7 mg/dL (0.0-1.0)
[2022-06-14] MEDS: Folic Acid 1 MG TABLET PO (09:12)
[2022-06-14] MEDS: Thiamine HCL 100 MG TABLET PO (09:12)
[2022-06-14] MEDS: PHENobarbitaL 30 MG TABLET PO ×2 (09:12→20:23)
[2022-06-14] MEDS: Naltrexone HCl 50 MG TABLET PO (09:12)
--- NOTE | 2022-06-14 10:26 | MHC.CM.PN ---
Per ROUNDS discussion, Patient is not yet medically cleared for dc (needs to be seen by Recovery Team); home is the goal and CM will continue to follow.
--- NOTE | 2022-06-14 10:55 | P.PNIM_ITS ---
Subjective Subjective Date of Service: 06/14/22 Interval History: awake alert, requesting for sleeping pill, wants to return back to [facility] , feels lonely and depressed, patient seen by care team and placed on Section 12 as report significant safety concerned that patient has been making statements about hanging herself, refusing meals taking 25% of meals mostly in bed, offers no other complaints of nausea vomiting, no abdominal pain keep repeating and asking for sleeping pill. Review of Systems Review of Systems: Yes all other systems are reviewed and are negative Physical Exam Vital Signs: Vital Signs: Last Vital Signs Temp 97.8 F 06/14/22 07:24 Pulse 96 06/14/22 07:24 Resp 16 06/14/22 07:24 BP 126/77 06/14/22 07:24 Pulse Ox 99 06/14/22 07:24 O2 Del Method Room Air 06/14/22 07:24 BMI result Body Mass Index 24.1 Const: Other: General? resting comfortably in no acute distress.? Neck? supple no JVD. CVS? regular rate rhythm, Respiratory lungs clear to auscultation, no respiratory distress, no wheeze, no rhonchi. Gastrointestinal abdomen soft, non tender, bowel sounds audible, no guarding , no rigidity. Extremities no edema. Neuro nonfocal ,moving all 4 extremity speech clear. Skin no rash psych depressed Objective Data Active Medications Acetaminophen (Acetaminophen 325 Mg Tablet) 650 mg PO Q6H PRN PRN Reason: Pain, Mild (Pain Scale 1-3) Docusate Sodium (Docusate Sodium 100 Mg Capsule) 100 mg PO DAILY PRN PRN Reason: Constipation Folic Acid (Folic Acid 1 Mg Tablet) 1 mg PO DAILY [facility] Last Admin: 06/14/22 09:12 Dose: 1 mg Documented By: ELIAN Mirtazapine (Mirtazapine 15 Mg Tablet) 45 mg PO BEDTIME [facility] Last Admin: 06/13/22 20:23 Dose: 45 mg Documented By: SAMY Naltrexone HCl (Naltrexone Hcl 50 Mg Tablet) 50 mg PO DAILY [facility] Last Admin: 06/14/22 09:12 Dose: 50 mg Documented By: ELIAN Ondansetron HCl (Ondansetron Hcl 4 Mg/2 Ml Vial) 4 mg IVPUSH Q8H PRN PRN Reason: Nausea and Vomiting Last Admin: 06/12/22 02:44 Dose: 4 mg Documented By: LAMBERT-MAXIMILIAN Pharmacy Consult (Consult Rx Etoh Phenob Po Only) 1 each MISCELLANE ONCE PRN; Protocol PRN Reason: Consult order Phenobarbital (Phenobarbital 30 Mg Tablet) 30 mg PO BID [facility] Stop: 06/15/22 21:01 Last Admin: 06/14/22 09:12 Dose: 30 mg Documented By: ELIAN Phenobarbital (Phenobarbital 15 Mg Tablet) 15 mg PO DAILY [facility] Stop: 06/17/22 09:01 Sodium Chloride (0.9 % Sodium Chloride Flush 3 Ml Syringe) 3 ml IVFLUSH QSHIFT [facility] Last Admin: 06/14/22 09:12 Dose: 3 ml Documented By: ELIAN Thiamine HCl (Thiamine Hcl 100 Mg Tablet) 100 mg PO DAILY [facility] Last Admin: 06/14/22 09:12 Dose: 100 mg Documented By: ELIAN Trazodone HCl (Trazodone Hcl 50 Mg Tablet) 50 mg PO BEDTIME PRN PRN Reason: Insomnia Labs 06/14/22 06:26 06/11/22 21:58 Labs: Laboratory Results - last 24 hr 06/14/22 06/14/22 06:26 06:26 MCV 90.3 MCH 31.8 MCHC 35.3 H RDW 14.3 Plt Count 29 L MPV 13.8 H Absolute Nucleated RBC 0.000 Nucleated RBC % (auto) 0.0 Total Bilirubin 1.7 H Direct Bilirubin 0.7 H AST 264 H ALT 163 H Alkaline Phosphatase 71 Total Protein 6.0 L Albumin 3.4 L Microbiology Microbiology Results: Microbiology 06/11/22 16:38 Blood Culture - Preliminary Blood - Venous No growth after 48 hours. 06/11/22 16:19 Blood Culture - Preliminary Blood - Venous No growth after 48 hours. Assessment and Plan (1) Alcohol withdrawal: Status: Acute Plan 72-year-old female with past medical history of alcohol abuse presents to the hospital with complaints of increased weakness, poor oral intake, and alcohol abuse...in active withdrawal 1.Alcohol abuse with withdrawals - continue phenobarbital protocol, tachycardia resolved blood pressure is stable - continue thiamine and folic acid, continue naltrexone - seizure precautions, seen by care team and placed under Section 12 due to concern for depression and suicidal ideation. 2.Alcoholic ketoacidosis - resolved, on regular diet 3. alcoholic hepatitis , fluctuating LFTs, no abdominal pain, strongly recommend to abstain from alcohol 4. mood disorder continue mitazrpine and trazodone as needed for insomnia. obtain psych consult for possible underlying depression and suicidal ideation 5. thrombocytopenia, due to alcohol, no active bleeding noted avoid antic oagulation , monitor CBC, placed on compression boots. 6. hypokalemia present on admission resolved. Full code Requires ongoing hospitalization for CIWA protocol to treat alcohol withdrawal/ further evaluation and treatment for depression / suicidal ideation. due Time Spent With Patient Time: Total time managing care of this patient today ____ minutes. Quality Stroke Does the patient have a stroke diagnosis?: No VTE Prior VTE?: No VTE Risk Level:: Medical - moderate - high VTE Device Contraindication: Treatment Not Indicated VTE Drug Contraindication: N/A - Med Ordered
[2022-06-14 11:10] VITALS: BP 127/82; PULSE 110; RESP 20; TEMP 37.4; O2SAT 97
--- NOTE | 2022-06-14 11:33 | PC.NURSE ---
pt found to be actively having suicidal ideation. Pt denies having plan, but states that moments before RN entered room she confessed a plan to him. Dr. Salazar has been notified and a sitter is now in room per MD.
--- NOTE | 2022-06-14 14:54 | HO.HSGERICON ---
History of Present Illness Data of Consult Service Date: 06/14/22 Requesting physician: Lakeshia Salazar Primary Care Provider: Montez Loya MD [facility] Reason for consult: Depression The patient is a 72-year-old Israeli female, , very well known by this prescriber since she was in the hospital [facility] months [facility] for similar presentation of depression and alcohol use disorder. The patient is currently on the medical floor for alcohol withdrawal 1 and altered mental status. On interview, the patient was sedated but she disclosed suicidal ideation and she was unable to contract for safety. She looks delirious and unable to fully continue 9 interview but she stated that she was drinking alcohol before and she was feeling very depressed with neurovegetative symptoms. The staff who was doing the one-to-one also reported that the patient has verbalized several times suicidal ideation. Apparently, the patient reported limited compliance with treatment after discharge from year to psychiatric unit. At the moment of the interview the patient was confused, disoriented and she adamantly denies psychotic symptoms. Review of Systems Review of Systems: Yes Unobtainable due to mental status PMFSH Medical History Alcohol abuse Depression, acute Family History Other Mental health disorder Surgical History No pertinent past surgical history Social History Household Members: Family Housing: House Do you presently have visiting nurse or other home services: No Unable to assess alcohol history related to: Unable to respond and Unknown Alcohol intake: current Alcohol intake frequency: 3 or more drinks per day Alcohol type: hard liquor Patient Tobacco Use Status: Never used Tobacco e-Cigarette/Vaping Use: Never Used Second Hand Smoke Exposure: No Substance Use Type: Caffiene service: No Current occupational status: retired Current occupational exposures/hazards: No Sexual orientation: Straight/Heterosexual Cognitive needs: No Hearing needs: No Vision needs: Yes Meds Allergies Allergy/AdvReac Type Severity Reaction Status Date / Time No Known Allergies Allergy Verified 05/15/22 10:46 Active Medications: Current Medications Acetaminophen (Acetaminophen 325 Mg Tablet) 650 mg PO Q6H PRN PRN Reason: Pain, Mild (Pain Scale 1-3) Docusate Sodium (Docusate Sodium 100 Mg Capsule) 100 mg PO DAILY PRN PRN Reason: Constipation Folic Acid (Folic Acid 1 Mg Tablet) 1 mg PO DAILY [facility] Last Admin: 06/14/22 09:12 Dose: 1 mg Mirtazapine (Mirtazapine 15 Mg Tablet) 45 mg PO BEDTIME [facility] Last Admin: 06/13/22 20:23 Dose: 45 mg Naltrexone HCl (Naltrexone Hcl 50 Mg Tablet) 50 mg PO DAILY [facility] Last Admin: 06/14/22 09:12 Dose: 50 mg Ondansetron HCl (Ondansetron Hcl 4 Mg/2 Ml Vial) 4 mg IVPUSH Q8H PRN PRN Reason: Nausea and Vomiting Last Admin: 06/12/22 02:44 Dose: 4 mg Pharmacy Consult (Consult Rx Etoh Phenob Po Only) 1 each MISCELLANE ONCE PRN; Protocol PRN Reason: Consult order Phenobarbital (Phenobarbital 30 Mg Tablet) 30 mg PO BID [facility] Stop: 06/15/22 21:01 Last Admin: 06/14/22 09:12 Dose: 30 mg Phenobarbital (Phenobarbital 15 Mg Tablet) 15 mg PO DAILY [facility] Stop: 06/17/22 09:01 Sodium Chloride (0.9 % Sodium Chloride Flush 3 Ml Syringe) 3 ml IVFLUSH QSHIFT [facility] Last Admin: 06/14/22 09:12 Dose: 3 ml Thiamine HCl (Thiamine Hcl 100 Mg Tablet) 100 mg PO DAILY [facility] Last Admin: 06/14/22 09:12 Dose: 100 mg Trazodone HCl (Trazodone Hcl 50 Mg Tablet) 50 mg PO BEDTIME PRN PRN Reason: Insomnia Home Medications Medication Instructions Recorded Confirmed Last Taken Type mirtazapine 45 mg tablet 45 mg PO BEDTIME 06/11/22 06/11/22 Unknown History Results Labs 06/14/22 06:26 06/11/22 21:58 Labs: Laboratory Results - last 24 hr 06/14/22 06/14/22 06:26 06:26 MCV 90.3 MCH 31.8 MCHC 35.3 H RDW 14.3 Plt Count 29 L MPV 13.8 H Absolute Nucleated RBC 0.000 Nucleated RBC % (auto) 0.0 Total Bilirubin 1.7 H Direct Bilirubin 0.7 H AST 264 H ALT 163 H Alkaline Phosphatase 71 Total Protein 6.0 L Albumin 3.4 L Assessment and Plan (1) Alcohol withdrawal: Status: Acute (2) Alcohol use disorder, moderate, dependence: Status: Acute (3) Major depressive disorder: Status: Acute Plan The patient is an female, elderly, with a long history of major depressive disorder, alcohol use disorder that worsened in the last years and alcohol use disorder currently on alcohol withdrawal symptoms. The present consult was placed to assess suicidality. The patient has verbalized suicidal ideation and exacerbation of depression. Plan 1. Continue one-to-one evaluation. 2. Continue with alcohol withdrawal precautions. 3. Continue Remeron 45 mg p.o. q.h.s. 4. Assesment care team for transferring to geriatric psychiatric unit. 0 5. At this moment the patient cannot sign AMA, transferring to psychiatric unit as soon as alcohol withdrawal treatment is finished. Time Spent With Patient Time: Total time managing care of this patient today __30__ minutes. Physical Exam Vital Signs: Last Vital Signs Temp 99.4 F 06/14/22 11:10 Pulse 110 H 06/14/22 11:10 Resp 20 06/14/22 11:10 BP 127/82 06/14/22 11:10 Pulse Ox 97 06/14/22 11:10 O2 Del Method Room Air 06/14/22 11:10 BMI result Body Mass Index 24.1 Neuro Cranial nerves: Yes CN's II-XII intact bilaterally Psych Other: The patient is dressed in hospital gowns, she is alert and awake but disoriented in time and person. Her affect is blunted and her mood is dysphoric. Thought processes circumstantial. Thought content denies auditory or visual hallucinations or delusions but she reported suicidal ideation without a clear plan. Insight judgment impulse control poor
[2022-06-14 15:10] VITALS: BP 105/62; PULSE 106; RESP 20; TEMP 36.4; O2SAT 93
--- NOTE | 2022-06-14 15:57 | HO.ADDICT_ITS ---
History of Present Illness Date of Service: 06/14/2022 Chief Complaint: Alcohol withdrawal, UTI, Lactic acidosis Reason for Consult: AUD Sources of Information: patient interviewed and chart reviewed HPI Narrative: Patient is a 72 year old [place] female with history of depression and alcohol use disorder who is currently medically admitted with AMS and alcohol withdrawal. Admission note states that patient was brought in by her sons who were concerned that she was not caring for herself and staying bed drinking for several days. At time of evaluation, patient oriented to self and circumstances of admission only. Reporting anxiety and depression and stating this is why she drinks. Unclear when patient developed AUD as she reports only starting to drink 3 months ago --which is not accurate based on previous admission one year ago for depression and alcohol use. Unable to gather any meaningful history related to alcohol use as patient is tangential and at several points during interview appeared to hallucinating and addressing someone that was not there. Past Psychiatric History: Denies prior contact, her primary care physician refer her to outpatient services Review of Systems Review of Systems Yes Unobtainable due to mental status Diagnostics Vital Signs (24Hr): Vital Signs - 24 hr 06/13/22 19:24 06/13/22 23:31 06/14/22 03:29 Temperature 98.3 F 98.2 F 98.6 F Pulse Rate 107 H 105 H 88 Respiratory Rate 17 18 18 Blood Pressure 149/92 H 126/83 132/64 Pulse Oximetry 98 99 96 Oxygen Delivery Method Room Air Room Air Room Air 06/14/22 07:24 06/14/22 11:10 06/14/22 15:10 Temperature 97.8 F 99.4 F 97.5 F Pulse Rate 96 110 H 106 H Respiratory Rate 16 20 20 Blood Pressure 126/77 127/82 105/62 Pulse Oximetry 99 97 93 Oxygen Delivery Method Room Air Room Air Room Air BMI result Body Mass Index 24.1 Labs 06/14/22 06:26 06/11/22 21:58 Labs: Laboratory Results - last 48 hr 06/14/22 06/14/22 06:26 06:26 WBC 3.5 L RBC 4.62 Hgb 14.7 Hct 41.7 MCV 90.3 MCH 31.8 MCHC 35.3 H RDW 14.3 Plt Count 29 L MPV 13.8 H Absolute Nucleated RBC 0.000 Nucleated RBC % (auto) 0.0 Total Bilirubin 1.7 H Direct Bilirubin 0.7 H AST 264 H ALT 163 H Alkaline Phosphatase 71 Total Protein 6.0 L Albumin 3.4 L Imaging Radiology Impressions: ITS Impressions Chest X-Ray 06/11/22 16:50 IMPRESSION: Low lung volumes with atelectasis. Head CT 06/11/22 16:54 IMPRESSION: No acute process Chronic microvascular ischemic changes Left-sided sinus disease Mental Status Exam Mental Status Exam Patient Orientation: Person and Situation Level of Consciousness: Awake and Restless Patient Behavior: Talkative Patient Cognition Impaired: Yes Speech Pattern: Rambling Hallucinations: Visual (?) Thought Process: Disoriented and Distracted Judgement: Poor Medications Medications Current Medications Acetaminophen (Acetaminophen 325 Mg Tablet) 650 mg PO Q6H PRN PRN Reason: Pain, Mild (Pain Scale 1-3) Docusate Sodium (Docusate Sodium 100 Mg Capsule) 100 mg PO DAILY PRN PRN Reason: Constipation Folic Acid (Folic Acid 1 Mg Tablet) 1 mg PO DAILY [facility] Last Admin: 06/14/22 09:12 Dose: 1 mg Mirtazapine (Mirtazapine 15 Mg Tablet) 45 mg PO BEDTIME [facility] Last Admin: 06/13/22 20:23 Dose: 45 mg Naltrexone HCl (Naltrexone Hcl 50 Mg Tablet) 50 mg PO DAILY [facility] Last Admin: 06/14/22 09:12 Dose: 50 mg Ondansetron HCl (Ondansetron Hcl 4 Mg/2 Ml Vial) 4 mg IVPUSH Q8H PRN PRN Reason: Nausea and Vomiting Last Admin: 06/12/22 02:44 Dose: 4 mg Pharmacy Consult (Consult Rx Etoh Phenob Po Only) 1 each MISCELLANE ONCE PRN; Protocol PRN Reason: Consult order Phenobarbital (Phenobarbital 30 Mg Tablet) 30 mg PO BID [facility] Stop: 06/15/22 21:01 Last Admin: 06/14/22 09:12 Dose: 30 mg Phenobarbital (Phenobarbital 15 Mg Tablet) 15 mg PO DAILY [facility] Stop: 06/17/22 09:01 Sodium Chloride (0.9 % Sodium Chloride Flush 3 Ml Syringe) 3 ml IVFLUSH QSHIFT [facility] Last Admin: 06/14/22 09:12 Dose: 3 ml Thiamine HCl (Thiamine Hcl 100 Mg Tablet) 100 mg PO DAILY [facility] Last Admin: 06/14/22 09:12 Dose: 100 mg Trazodone HCl (Trazodone Hcl 50 Mg Tablet) 50 mg PO BEDTIME PRN PRN Reason: Insomnia Allergies Allergies Allergy/AdvReac Type Severity Reaction Status Date / Time No Known Allergies Allergy Verified 05/15/22 10:46 Assessment & Plan Assessment & Plan (1) Alcohol withdrawal: Status: Acute Code(s): F10.939 - Alcohol use, unspecified with withdrawal, unspecified (2) Alcohol use disorder, severe, dependence: Status: Acute Code(s): F10.20 - Alcohol dependence, uncomplicated Assessment and Plan: * no recommendations at this time based on confusion * seen by Psychiatry and inpatient admission recommended * will follow up there when appropriate Total time managing care of this patient today __30__ minutes. PMFSH Past Medical History Medical History Alcohol abuse Depression, acute Family History Family History Other Mental health disorder Surgical History Surgical History No pertinent past surgical history Social History Social History Household Members: Family Housing: House Do you presently have visiting nurse or other home services: No Unable to assess alcohol history related to: Unable to respond and Unknown Alcohol intake: current Alcohol intake frequency: 3 or more drinks per day Alcohol type: hard liquor Patient Tobacco Use Status: Never used Tobacco e-Cigarette/Vaping Use: Never Used Second Hand Smoke Exposure: No Substance Use Type: Caffiene service: No Current occupational status: retired Current occupational exposures/hazards: No Sexual orientation: Straight/Heterosexual Cognitive needs: No Hearing needs: No Vision needs: Yes
[2022-06-14 19:14] VITALS: BP 120/73; PULSE 68; RESP 20; TEMP 37; O2SAT 98
[2022-06-14] MEDS: Mirtazapine 15 MG TABLET 45 MG PO (20:23)
[2022-06-15] VITALS (7 sets, daily range): BP systolic 104–160; BP diastolic 77–103; PULSE 76–113; RESP 16–20; TEMP 36.5–37.2; O2SAT 95–99
[2022-06-15] MEDS: Folic Acid 1 MG TABLET PO (08:02)
[2022-06-15] MEDS: Thiamine HCL 100 MG TABLET PO (08:02)
[2022-06-15] MEDS: PHENobarbitaL 30 MG TABLET PO ×2 (08:02→20:11)
[2022-06-15] MEDS: 0.9 % Sodium Chloride Flush 3 ML SYRINGE IVFLUSH ×2 (08:02→16:02)
[2022-06-15] MEDS: Naltrexone HCl 50 MG TABLET PO (08:02)
--- NOTE | 2022-06-15 10:35 | MHC.CM.PN ---
Per ROUNDS discussion, Patient will need [facility] bed. CM will follow.Care Team is involved.
[2022-06-15] MEDS: Acetaminophen 325 MG TABLET 650 MG PO (10:37)
[2022-06-15] MEDS: ondansetron HCL 4 MG/2 ML VIAL IVPUSH ×2 (10:37→19:12)
--- NOTE | 2022-06-15 16:00 | HO.PM.IMPN ---
Subjective Subjective Date of Service: 06/15/22 Interval History: more awake alert answering questions appropriately continue to feel depressed , refusing to eat, feels lonely has no desire to live, denies tremors shakiness, no lightheadedness or dizziness no nausea no vomiting. Review of Systems Review of Systems: Yes all other systems are reviewed and are negative Physical Exam Vital Signs: Vital Signs: Last Vital Signs Temp 97.8 F 06/15/22 15:26 Pulse 104 H 06/15/22 15:26 Resp 20 06/15/22 15:26 BP 137/99 H 06/15/22 15:26 Pulse Ox 98 06/15/22 15:26 O2 Del Method Room Air 06/15/22 15:26 BMI result Body Mass Index 24.1 Const: Other: General? resting comfortably in no acute distress.? Neck? supple no JVD. CVS? regular rate rhythm, Respiratory lungs clear to auscultation, no respiratory distress, no wheeze, no rhonchi. Gastrointestinal abdomen soft, non tender, bowel sounds audible, no guarding , no rigidity. Extremities no edema. Neuro nonfocal ,moving all 4 extremity speech clear, no tremors. Skin no rash psych depressed Objective Data Active Medications Acetaminophen (Acetaminophen 325 Mg Tablet) 650 mg PO Q6H PRN PRN Reason: Pain, Mild (Pain Scale 1-3) Last Admin: 06/15/22 10:37 Dose: 650 mg Documented By: MARY Docusate Sodium (Docusate Sodium 100 Mg Capsule) 100 mg PO DAILY PRN PRN Reason: Constipation Folic Acid (Folic Acid 1 Mg Tablet) 1 mg PO DAILY [facility] Last Admin: 06/15/22 08:02 Dose: 1 mg Documented By: MARY Mirtazapine (Mirtazapine 15 Mg Tablet) 45 mg PO BEDTIME [facility] Last Admin: 06/14/22 20:23 Dose: 45 mg Documented By: LAMBERT-LADQUAN Naltrexone HCl (Naltrexone Hcl 50 Mg Tablet) 50 mg PO DAILY [facility] Last Admin: 06/15/22 08:02 Dose: 50 mg Documented By: MARY Ondansetron HCl (Ondansetron Hcl 4 Mg/2 Ml Vial) 4 mg IVPUSH Q8H PRN PRN Reason: Nausea and Vomiting Last Admin: 06/15/22 10:37 Dose: 4 mg Documented By: MARY Pharmacy Consult (Consult Rx Etoh Phenob Po Only) 1 each MISCELLANE ONCE PRN; Protocol PRN Reason: Consult order Phenobarbital (Phenobarbital 30 Mg Tablet) 30 mg PO BID [facility] Stop: 06/15/22 21:01 Last Admin: 06/15/22 08:02 Dose: 30 mg Documented By: MARY Phenobarbital (Phenobarbital 15 Mg Tablet) 15 mg PO DAILY [facility] Stop: 06/17/22 09:01 Sodium Chloride (0.9 % Sodium Chloride Flush 3 Ml Syringe) 3 ml IVFLUSH QSHIFT [facility] Last Admin: 06/15/22 08:02 Dose: 3 ml Documented By: MARY Thiamine HCl (Thiamine Hcl 100 Mg Tablet) 100 mg PO DAILY [facility] Last Admin: 06/15/22 08:02 Dose: 100 mg Documented By: MARY Trazodone HCl (Trazodone Hcl 50 Mg Tablet) 50 mg PO BEDTIME PRN PRN Reason: Insomnia Labs 06/14/22 06:26 06/11/22 21:58 Assessment and Plan (1) Alcohol withdrawal: Status: Acute Plan 72-year-old female with past medical history of alcohol abuse presents to the hospital with complaints of increased weakness, poor oral intake, and alcohol abuse...in active withdrawal 1.Alcohol abuse with withdrawals - on phenobarbital protocol, few episodes of tachycardia and elevated blood pressure - continue thiamine and folic acid, continue naltrexone - seizure precautions, seen by care team and placed under Section 12 due to concern for depression and suicidal ideation. 2.Alcoholic ketoacidosis - resolved, on regular diet 3. alcoholic hepatitis , fluctuating LFTs, no abdominal pain, strongly recommend to abstain from alcohol. 4. depression with suicidal ideation continue mitazrpine and trazodone as needed for insomnia. seen by psych they recommend transferred to been medically stable consulted care team since patient is medically clear no [facility] bed available and they continue to search bed / continue one-to-one sitter. 5. thrombocytopenia, due to alcohol, no active bleeding noted avoid anticoagulation , monitor CBC, placed on compression boots. 6. hypokalemia present on admission resolved. Full code Requires ongoing hospitalization for CIWA protocol to treat alcohol withdrawal/ further evaluation and treatment for depression / suicidal ideation. waiting for safe discharge to psych Time Spent With Patient Time: Total time managing care of this patient today ____ minutes. Quality Stroke Does the patient have a stroke diagnosis?: No VTE Prior VTE?: No VTE Risk Level:: Medical - moderate - high VTE Device Contraindication: Treatment Not Indicated VTE Drug Contraindication: N/A - Med Ordered
[2022-06-15] MEDS: traZODone HCL 50 MG TABLET PO (20:11)
[2022-06-15] MEDS: Mirtazapine 15 MG TABLET 45 MG PO (20:11)
--- NOTE | 2022-06-15 22:23 | MHC.EVENTN ---
Around 1944 patient slide from the commode to the floor, was witnessed by staff, patient did not strike her head. Vitals taken, were WNL. Patient asked for ice pack for right wrist but otherwise denied any injury. Notified MD Hargrove, who is aware. After a few minutes patient denied any pain to wrist, right wrist had +CMS.
[2022-06-16] VITALS: BP 130/84; PULSE 103; RESP 18; TEMP 37.1; O2SAT 97
--- NOTE | 2022-06-16 | ECG_ITS ---
Test Reason : hypoK Blood Pressure : / mmHG Vent. Rate : 087 BPM Atrial Rate : 087 BPM P-R Int : 142 ms QRS Dur : 068 ms QT Int : 384 ms P-R-T Axes : 022 -14 006 degrees QTc Int : 462 ms Normal sinus rhythm Cannot rule out Anterior infarct , age undetermined Abnormal ECG When compared with ECG of 11-JUN-2022 16:54, ST-T changes seem improved. Referred By: Ronn Saunders Electronically Signed By:MARINA BISWAS
[2022-06-16 03:07] VITALS: BP 127/101; PULSE 93; RESP 16; TEMP 36.2; O2SAT 98
[2022-06-16 06:48] LABS: Hematocrit 39.7 % (37.0-47.0); Hemoglobin 14.2 g/dl (12.0-16.0); Mean Corpuscular HGB Conc 35.8 g/dl (31.0-35.0); Mean Corpuscular Hemoglobin 31.9 pg (27.0-33.0); Mean Corpuscular Volume 89.2 fL (80.0-98.0); Platelet Count 60 X10*3/uL (160-400); Red Blood Count 4.45 X10*6/uL (4.20-5.50); Red Cell Distribution Width 14.4 % (11.0-16.0); White Blood Count 3.4 X10*3/uL (4.8-10.8)
[2022-06-16 07:04] LABS: Blood Urea Nitrogen 4 mg/dL (9-16); Calcium 8.5 mg/dL (8.4-10.2); Creatinine Clr Calc Pharmacy 57.6; Estimated Glomerular Filt Rate > 60; Glucose Random 176 mg/dL (60-115)
[2022-06-16 07:12] LABS: Anion Gap 15 (12-20)
[2022-06-16 07:23] VITALS: BP 100/57; PULSE 65; RESP 16; TEMP 37; O2SAT 94
[2022-06-16] MEDS: Potassium Chloride ER 20 MEQ TAB.ER.PRT 40 MEQ PO ×2 (07:31→13:20)
[2022-06-16] MEDS: Potassium Chloride/H20 10 MEQ/100 ML PIGGYBACK 100 MEQ IV ×4 (07:33→11:10)
[2022-06-16] MEDS: 0.9 % Sodium Chloride Flush 3 ML SYRINGE IVFLUSH ×3 (07:33→21:19)
[2022-06-16 07:41] LABS: Carbon Dioxide 30 mmol/L (22-29); Chloride 89 mmol/L (96-108); Potassium 2.3 mmol/L (3.3-5.1); Sodium 132 mmol/L (135-145)
[2022-06-16 08:14] LABS: Magnesium 1.4 mg/dL (1.6-2.6)
[2022-06-16] MEDS: PHENobarbitaL 15 MG TABLET PO (08:38)
[2022-06-16] MEDS: Naltrexone HCl 50 MG TABLET PO (08:38)
[2022-06-16] MEDS: Folic Acid 1 MG TABLET PO (08:38)
[2022-06-16] MEDS: Thiamine HCL 100 MG TABLET PO (08:40)
[2022-06-16] MEDS: Magnesium Sulfate/H2O 2 GM/50 ML PIGGYBACK IV (09:47)
[2022-06-16] MEDS: Magnesium Oxide 400 MG TABLET PO ×2 (09:47→17:35)
[2022-06-16 11:22] VITALS: BP 91/57; PULSE 89; RESP 16; TEMP 37.1; O2SAT 99
--- NOTE | 2022-06-16 12:12 | MHC.CM.PN ---
EMR REVIEWED AND PER MD ROUNDS, PT IS NOT MEDICALLY CLEARED FOR DC TODAY. PSYCH BED SEARCH UNDERWAY. CM WILL CONTINUE TO FOLLOW FOR ANY CHANGE IN DC PLAN
[2022-06-16 13:03] LABS: Anion Gap 12 (12-20); Blood Urea Nitrogen 4 mg/dL (9-16); Calcium 8.5 mg/dL (8.4-10.2); Carbon Dioxide 30 mmol/L (22-29); Chloride 94 mmol/L (96-108); Creatinine Clr Calc Pharmacy 60.1; Estimated Glomerular Filt Rate > 60; Glucose Random 140 mg/dL (60-115); Potassium 3.3 mmol/L (3.3-5.1); Sodium 133 mmol/L (135-145)
[2022-06-16 14:21] LABS: Magnesium 2.1 mg/dL (1.6-2.6)
--- NOTE | 2022-06-16 14:36 | P.PNIM_ITS ---
Subjective Subjective Date of Service: 06/16/22 Interval History: awake depressed, wants help K/Mg very low Review of Systems Review of Systems: Yes all other systems are reviewed and are negative Physical Exam Vital Signs: Vital Signs: Last Vital Signs Temp 98.7 F 06/16/22 11:22 Pulse 89 06/16/22 11:22 Resp 16 06/16/22 11:22 BP 91/57 L 06/16/22 11:22 Pulse Ox 99 06/16/22 11:22 O2 Del Method Room Air 06/16/22 11:22 BMI result Body Mass Index 24.1 Gen: in no acute distress HEENT: sclera anicteric, moist mucus membranes Neck: supple Lungs: clear to auscultation bilaterally Heart: regular rate and rhythm, no murmurs Abd: soft, non-tender, non-distended Ext: no edema Skin: warm/well-perfused Neuro: alert and oriented x3, no focal findings Psych: restricted affect Objective Data Active Medications Acetaminophen (Acetaminophen 325 Mg Tablet) 650 mg PO Q6H PRN PRN Reason: Pain, Mild (Pain Scale 1-3) Last Admin: 06/15/22 10:37 Dose: 650 mg Documented By: MARY Docusate Sodium (Docusate Sodium 100 Mg Capsule) 100 mg PO DAILY PRN PRN Reason: Constipation Folic Acid (Folic Acid 1 Mg Tablet) 1 mg PO DAILY [facility] Last Admin: 06/16/22 08:38 Dose: 1 mg Documented By: MARY Magnesium Oxide (Magnesium Oxide 400 Mg Tablet) 400 mg PO BIDPC [facility] Last Admin: 06/16/22 09:47 Dose: 400 mg Documented By: MARY Mirtazapine (Mirtazapine 15 Mg Tablet) 45 mg PO BEDTIME [facility] Last Admin: 06/15/22 20:11 Dose: 45 mg Documented By: LEANNE Naltrexone HCl (Naltrexone Hcl 50 Mg Tablet) 50 mg PO DAILY [facility] Last Admin: 06/16/22 08:38 Dose: 50 mg Documented By: MARY Ondansetron HCl (Ondansetron Hcl 4 Mg/2 Ml Vial) 4 mg IVPUSH Q8H PRN PRN Reason: Nausea and Vomiting Last Admin: 06/15/22 19:12 Dose: 4 mg Documented By: LEANNE Pharmacy Consult (Consult Rx Etoh Phenob Po Only) 1 each MISCELLANE ONCE PRN; Protocol PRN Reason: Consult order Phenobarbital (Phenobarbital 15 Mg Tablet) 15 mg PO DAILY [facility] Stop: 06/17/22 09:01 Last Admin: 06/16/22 08:38 Dose: 15 mg Documented By: MARY Sodium Chloride (0.9 % Sodium Chloride Flush 3 Ml Syringe) 3 ml IVFLUSH QSHIFT [facility] Last Admin: 06/16/22 07:33 Dose: 3 ml Documented By: MARY Thiamine HCl (Thiamine Hcl 100 Mg Tablet) 100 mg PO DAILY [facility] Last Admin: 06/16/22 08:40 Dose: 100 mg Documented By: MARY Trazodone HCl (Trazodone Hcl 50 Mg Tablet) 50 mg PO BEDTIME PRN PRN Reason: Insomnia Last Admin: 06/15/22 20:11 Dose: 50 mg Documented By: LEANNE Labs 06/16/22 06:21 06/16/22 12:21 Labs: Laboratory Results - last 24 hr 06/16/22 06/16/22 06/16/22 06:21 06:21 12:21 MCV 89.2 MCH 31.9 MCHC 35.8 H RDW 14.4 Plt Count 60 L D MPV 12.0 Absolute Nucleated RBC 0.000 Nucleated RBC % (auto) 0.0 Anion Gap 15 12 Estim Creat Clear Calc 57.6 60.1 Estimated GFR > 60 > 60 Random Glucose 176 H 140 H Calcium 8.5 D 8.5 Magnesium 1.4 L* 2.1 Assessment and Plan (1) Alcohol withdrawal: Status: Acute Plan d#6 72-year-old female with past medical history of alcohol abuse presents to the hospital with complaints of increased weakness, poor oral intake, and alcohol abuse; admitted with active withdrawal # hypoK # hypoMg - replete IV/PO, recheck in AM # alcohol use disorder with EtOH withdrawal - on phenobarbital protocol, few episodes of tachycardia and elevated blood pressure - continue thiamine and folic acid, continue naltrexone - seizure precautions, seen by care team and placed under Section 12 due to concern for depression and suicidal ideation - will need to go to psychiatry inpatient once medically cleared # EtOH ketoacidosis - resolved # EtOH hepatitis - abstain from EtOH, no steroids at this level # thrombocytopenia - due to EtOH, improving # depression with SI - continue mirtazapine + trazodone. Psych transfer when medically cleared. Sitter. # VTE ppx: SCDs # dispo: psych In my clinical judgment, the patient requires continued inpatient hospitalization for the following reasons: IV electrlyte repletion Time Spent With Patient Time: Total time managing care of this patient today ___45_ minutes. Quality Stroke Does the patient have a stroke diagnosis?: No VTE Prior VTE?: No VTE Risk Level:: Medical - moderate - high VTE Device Contraindication: Treatment Not Indicated VTE Drug Contraindication: N/A - Med Ordered
[2022-06-16 15:15] VITALS: BP 128/67; PULSE 92; RESP 20; TEMP 36.3; O2SAT 95
[2022-06-16 19:16] VITALS: BP 99/58; PULSE 60; RESP 21; TEMP 36.3; O2SAT 98
[2022-06-16] MEDS: Mirtazapine 15 MG TABLET 45 MG PO (21:17)
[2022-06-16] MEDS: traZODone HCL 50 MG TABLET PO (21:18)
[2022-06-17] VITALS: BP 106/65; PULSE 88; RESP 16; TEMP 36.6; O2SAT 94
[2022-06-17 04:00] VITALS: BP 100/57; PULSE 82; RESP 18; TEMP 36.2; O2SAT 96
[2022-06-17] MEDS: Acetaminophen 325 MG TABLET 650 MG PO ×2 (04:45→15:41)
[2022-06-17] MEDS: Magnesium Hydrox/Alum Hydrox 30 ML ORAL.SUSP PO (04:46)
[2022-06-17 07:13] LABS: INTERNATIONAL NORM RATIO 0.9 (0.9-1.1)
[2022-06-17 07:23] LABS: Alanine Aminotransferase 157 U/L (0-31); Albumin Level 3.1 g/dL (3.5-5.0); Alkaline Phosphatase 80 U/L (39-117); Anion Gap 10 (12-20); Aspartate Amino Transferase 160 U/L (5-31); Blood Urea Nitrogen 5 mg/dL (9-16); Calcium 8.2 mg/dL (8.4-10.2); Carbon Dioxide 29 mmol/L (22-29); Chloride 98 mmol/L (96-108); Creatinine Clr Calc Pharmacy 61.8; Estimated Glomerular Filt Rate > 60; Glucose Random 101 mg/dL (60-115); Potassium 3.4 mmol/L (3.3-5.1); Sodium 134 mmol/L (135-145); Total Protein 5.5 g/dL (6.5-8.0)
[2022-06-17 07:34] LABS: Hematocrit 37.2 % (37.0-47.0); Hemoglobin 12.9 g/dl (12.0-16.0); Mean Corpuscular HGB Conc 34.7 g/dl (31.0-35.0); Mean Corpuscular Hemoglobin 31.3 pg (27.0-33.0); Mean Corpuscular Volume 90.3 fL (80.0-98.0); Mean Platelet Volume 11.3 fL (9.4-12.3); Red Blood Count 4.12 X10*6/uL (4.20-5.50); Red Cell Distribution Width 15.4 % (11.0-16.0)
[2022-06-17 07:35] LABS: Platelet Count 76 X10*3/uL (160-400); White Blood Count 2.5 X10*3/uL (4.8-10.8)
[2022-06-17 07:44] VITALS: BP 98/61; PULSE 84; RESP 20; TEMP 36.4; O2SAT 97
[2022-06-17] MEDS: Thiamine HCL 100 MG TABLET PO (08:40)
[2022-06-17] MEDS: Magnesium Oxide 400 MG TABLET PO (08:40)
[2022-06-17] MEDS: Folic Acid 1 MG TABLET PO (08:40)
[2022-06-17] MEDS: 0.9 % Sodium Chloride Flush 3 ML SYRINGE IVFLUSH (08:40)
[2022-06-17] MEDS: Naltrexone HCl 50 MG TABLET PO (08:40)
[2022-06-17] MEDS: PHENobarbitaL 15 MG TABLET PO (08:40)
--- NOTE | 2022-06-17 11:53 | PM.DS ---
DS: Providers Provider Date of Service: 06/17/22 Date of admission: 06/11/22 21:09 Date of discharge: 06/17/22 Primary care physician: Montez Loya MD Consults: 06/12/22 06:19 Addiction Medicine Routine Consulting Provider: Addiction Covering Reason for consultation: alcohol abuse 06/13/22 14:46 Consult to Care Team Routine Comment: Reason for consultation: etoh 06/14/22 10:58 Consult to Psychiatry Routine Consulting Provider: Psych Covering Reason for consultation: depression Has provider been notified: No 06/14/22 12:05 Consult for Sitter Routine Reason for consultation: suicidal ideation Has provider been notified: No 06/15/22 08:15 Consult to Care Team Routine Comment: Reason for consultation: transfer to DS: Diagnosis Discharge Diagnosis (1) Alcohol withdrawal: Status: Acute (2) Alcohol use disorder, severe, dependence: Status: Acute (3) Alcoholic ketoacidosis: Status: Acute (4) Hypomagnesemia: Status: Acute (5) Hypokalemia: Status: Acute (6) Suicidal ideation: Status: Acute DS: Summary Hospital Course Hospital Course: from admission H+P by hospitalist Taylor Esparza MD 06/11/22: 72-year-old female with past medical history of depression, alcohol abuse, history of alcohol withdrawals, was brought in by her son's for generalized weakness, and abusing alcohol to the point that she is not eating or drinking.? This patient is sleeping, but arousable to verbal command, answers questions but falls back asleep after receiving Ativan for withdrawals.? According to the sons, patient lives with her , they went to visit her at her house, they were told by the that patient has been in bed for several days, not eating or drinking water but continues to actively drink alcohol.? She has also had an episode of urinary incontinence, this stones were concerned because she has had increased weakness, therefore they brought her to the hospital.? They say that she drinks heavily, and has not been interested in detox in the past On arrival to the ED patient was tachycardic with a heart rate of 120, otherwise stable Labs are significant WBC count of 5.2, hemoglobin of 15.8, hematocrit 44.1, labs otherwise significant for pH of 7.46, bicarb of 18, anion gap of 28, lactic acid of 7.4, sodium of 2.8, AST of 230, ALT of 167, troponin of 36 increased to 49, albumin of 3.3 UA negative, urine drug screen positive for benzos, as well as barbiturates Head CT negative, chest x-ray shows atelectasis She was started on phenobarb and will be admitted for further management HOSPITAL COURSE SUMMARY: 72-year-old female with past medical history of alcohol abuse presents to the hospital with complaints of increased weakness, poor oral intake, and alcohol abuse; admitted with active withdrawal # hypoK # hypoMg - repleted IV/PO, started on PO maintenance = magnesium oxide 400 mg PO bid PLUS potassium chloride 40 mEq PO daily; recheck CMP and Mg in 2 days # alcohol use disorder with EtOH withdrawal - on phenobarbital protocol with a few episodes of tachycardia and elevated blood pressure that resolved - continue thiamine and folic acid, continue naltrexone - seizure precautions, seen by care team and placed under Section 12 due to concern for depression and suicidal ideation - will need to go to psychiatry inpatient once medically cleared # EtOH ketoacidosis - resolved # EtOH hepatitis - abstain from EtOH, no steroids at this level, recheck CMP in 2 days # thrombocytopenia - due to EtOH, improving; recheeck CBCd in 2 days # depression with SI - continue mirtazapine + trazodone. Medically cleared for transfer to psychiatry. Has sitter. Time Spent with Patient Time attestation: Total time managing care of this patient today ___45_ minutes. Discharge coordination time: Greater than 30 minutes Quality: Safe Use of Opioids Does Pt have an Active Cancer Diagnosis on the Problem List?: No Quality: Stroke Does the patient have a stroke diagnosis?: No Physical Exam Vital Signs: Vital Signs: Last Vital Signs Temp 97.6 F 06/17/22 07:44 Pulse 84 06/17/22 07:44 Resp 20 06/17/22 07:44 BP 98/61 06/17/22 07:44 Pulse Ox 97 06/17/22 07:44 O2 Del Method Room Air 06/17/22 07:44 BMI result Body Mass Index 24.1 Gen: in no acute distress HEENT: sclera anicteric, moist mucus membranes Neck: supple Lungs: clear to auscultation bilaterally Heart: regular rate and rhythm, no murmurs Abd: soft, non-tender, non-distended Ext: no edema Skin: warm/well-perfused Neuro: alert and oriented x3, no focal findings Psych: restricted affect DS: Data Data Completed and Pending Completed studies during hospitalization [Text1]: Laboratory Results WBC 2.5 X10*3/uL (4.8-10.8) L 06/17/22 06:26 RBC 4.12 X10*6/uL (4.20-5.50) L 06/17/22 06:26 Hgb 12.9 g/dl (12.0-16.0) 06/17/22 06:26 Hct 37.2 % (37.0-47.0) 06/17/22 06:26 MCV 90.3 fL (80.0-98.0) 06/17/22 06:26 MCH 31.3 pg (27.0-33.0) 06/17/22 06:26 MCHC 34.7 g/dl (31.0-35.0) 06/17/22 06:26 RDW 15.4 % (11.0-16.0) 06/17/22 06:26 Plt Count 76 X10*3/uL (160-400) L D 06/17/22 06:26 MPV 11.3 fL (9.4-12.3) 06/17/22 06:26 Immature Gran % (Auto) 0.3 % (0.0-0.4) 06/12/22 08:18 Neut % (Auto) 65.5 % (45-73) 06/12/22 08:18 Lymph % (Auto) 25.2 % (20-40) 06/12/22 08:18 [place] % (Auto) 8.1 % (2-11) 06/12/22 08:18 Eos % (Auto) 0.3 % (0-4) 06/12/22 08:18 Baso % (Auto) 0.6 % (0-2) 06/12/22 08:18 Lymph # (Auto) 0.8 X10*3/uL (1.2-4.9) L 06/12/22 08:18 [place] # (Auto) 0.3 X10*3/uL (0.1-1.2) 06/12/22 08:18 Eos # (Auto) 0.0 X10*3/uL (0.0-0.4) 06/12/22 08:18 Baso # (Auto) 0.0 X10*3/uL (0.0-0.2) 06/12/22 08:18 Abs Immat Gran (auto) 0.01 X10*3/uL (0.00-0.03) 06/12/22 08:18 Absolute Neuts (auto) 2.2 x10*3/uL (2.0-8.3) 06/12/22 08:18 Absolute Nucleated RBC 0.000 X10*3/uL (0.0-0.012) 06/17/22 06:26 Nucleated RBC % (auto) 0.0 /100WBC (0.0-0.2) 06/17/22 06:26 PT 10.0 SEC (10.0-13.1) 06/17/22 06:26 INR 0.9 (0.9-1.1) 06/17/22 06:26 O2 Saturation 99.0 % 06/11/22 20:05 ABG pH at Pt Temp 7.46 (7.35-7.45) H 06/11/22 20:05 ABG pCO2 at Pt Temp 25 mmHg (32-45) L 06/11/22 20:05 ABG pO2 at Pt Temp 119 mmHg (83-108) H 06/11/22 20:05 ABG HCO3 18 mmol/L (22-26) L 06/11/22 20:05 ABG Base Excess (Actual) -3.3 mmol/L 06/11/22 20:05 Sodium 134 mmol/L (135-145) L 06/17/22 06:26 Potassium 3.4 mmol/L (3.3-5.1) 06/17/22 06:26 Chloride 98 mmol/L (96-108) 06/17/22 06:26 Carbon Dioxide 29 mmol/L (22-29) 06/17/22 06:26 Anion Gap 10 (12-20) L 06/17/22 06:26 BUN 5 mg/dL (9-16) L 06/17/22 06:26 Creatinine 0.69 mg/dL (0.5-1.4) 06/17/22 06:26 Estim Creat Clear Calc 61.8 06/17/22 06:26 Estimated GFR > 60 06/17/22 06:26 Random Glucose 101 mg/dL (60-115) 06/17/22 06:26 Osmolality 352 mosm/kg (281-305) H 06/11/22 16:22 Lactic Acid 2.8 mmol/L (0.5-2.0) H* 06/12/22 08:18 Lactic Acid F/U @ 2Hr 1.1 mmol/L (0.5-2.0) 06/12/22 10:42 Lactic Acid F/U @ 4Hr 3.0 mmol/L (0.5-2.0) H* 06/11/22 21:58 Calcium 8.2 mg/dL (8.4-10.2) L 06/17/22 06:26 Magnesium 2.0 mg/dL (1.6-2.6) 06/17/22 06:26 Total Bilirubin 1.0 mg/dL (0.0-1.0) 06/17/22 06:26 Direct Bilirubin 0.7 mg/dL (0.0-0.5) H 06/14/22 06:26 AST 160 U/L (5-31) H 06/17/22 06:26 ALT 157 U/L (0-31) H 06/17/22 06:26 Alkaline Phosphatase 80 U/L (39-117) 06/17/22 06:26 Ammonia 41 umol/L (13-55) 06/11/22 16:20 Total Creatine Kinase 914 U/L (26-140) H 06/11/22 16:21 Troponin I High Sens 30.4 ng/L (<3.5-17.0) H 06/12/22 08:18 B-Natriuretic Peptide < 10 pg/mL (<100) 06/11/22 16:21 Total Protein 5.5 g/dL (6.5-8.0) L 06/17/22 06:26 Albumin 3.1 g/dL (3.5-5.0) L 06/17/22 06:26 Urine Color Yellow 06/12/22 04:33 Urine Appearance Clear 06/12/22 04:33 Urine pH 6.0 (5.0-9.0) 06/12/22 04:33 Ur Specific [place] 1.025 (1.005-1.025) 06/12/22 04:33 Urine Protein Trace mg/dL (Neg-Trace) 06/12/22 04:33 Urine Glucose (UA) Negative mg/dL (Negative) 06/12/22 04:33 Urine Ketones 40 mg/dL (Negative) 06/12/22 04:33 Urine Blood Moderate (2+) (Negative) H 06/12/22 04:33 Urine Nitrite Negative (Negative) 06/12/22 04:33 Ur Leukocyte Esterase Negative (Negative) 06/12/22 04:33 Urine RBC 3-5 /HPF (0-2) H 06/12/22 04:33 Urine WBC 0-5 /HPF (0-5) 06/12/22 04:33 Ur Squamous Epith Cells 0-2 /HPF (0-2) 06/12/22 04:33 Urine Bacteria 1+ (None Seen) 06/12/22 04:33 Hyaline Casts 0-2 /LPF (0-2) 06/12/22 04:33 Urine Osmolality 773 mosm/kg (373-1093) 06/12/22 04:33 Ur Random Sodium 123.0 mmol/L 06/12/22 04:33 Ur Random Potassium 86.3 mmol/L 06/12/22 04:33 Ur Random Chloride 207.0 mmol/L 06/12/22 04:33 Urine Creatinine 95.74 mg/dL 06/12/22 04:33 Urine Opiates Screen Not Detected (Not Detect) 06/12/22 04:33 Urine Fentanyl Screen Not Detected (Not Detect) 06/12/22 04:33 Ur Barbiturates Screen POSITIVE (Not Detect) H 06/12/22 04:33 Ur Phencyclidine Scrn Not Detected (Not Detect) 06/12/22 04:33 Ur Amphetamines Screen Not Detected (Not Detect) 06/12/22 04:33 U Benzodiazepines Scrn POSITIVE (Not Detect) H 06/12/22 04:33 Urine Cocaine Screen Not Detected (Not Detect) 06/12/22 04:33 U Marijuana (THC) Screen Not Detected (Not Detect) 06/12/22 04:33 Ethyl Alcohol 256 mg/dL 06/11/22 16:22 Influenza Type A (PCR) NEGATIVE (Negative) 06/11/22 16:22 Influenza Type B (PCR) NEGATIVE (Negative) 06/11/22 16:22 RSV RNA Qual (PCR) NEGATIVE (Negative) 06/11/22 16:22 SARS-CoV-2 RNA (RT-PCR) NEGATIVE (Negative) 06/11/22 16:22 Impressions Chest X-Ray 06/11/22 16:50 IMPRESSION: Low lung volumes with atelectasis. Head CT 06/11/22 16:54 IMPRESSION: No acute process Chronic microvascular ischemic changes Left-sided sinus disease Discharge Plan Discharge Anticipated Discharge Date/Time: 06/17/22 11:47 Patient Disposition: Xfer Psychiatric Hosp Discharge Diagnosis: alcohol use disorder, substance induced mood disorder, alcohol withdrawal, alcoholic ketoacidosis, hypomagnesemia, hypokalemia, alcoholic hepatitis Referrals: Montez Loya MD [Primary Care Provider] - 1 Week Discharge Medications: New potassium chloride 20 mEq Tablet,Er Particles/Crystals 40 meq PO DAILY Qty: 30 0RF magnesium oxide 400 mg (241.3 mg magnesium) Tablet 400 mg PO BIDPC Qty: 60 0RF folic acid 1 mg Tablet 1 mg PO DAILY Qty: 30 0RF thiamine mononitrate (vit B1) 100 mg Tablet 100 mg PO DAILY Qty: 30 0RF Continued mirtazapine 45 mg tablet 45 mg PO BEDTIME naltrexone 50 mg tablet 50 mg PO DAILY 30 Days Qty: 30 0RF trazodone 50 mg tablet 50 mg PO BEDTIME PRN (Reason: Insomnia) 30 Days Qty: 30 0RF Discontinued lorazepam 0.5 mg tablet 0.5 mg PO BID PRN (Reason: anxiety) Qty: 60 5RF Discharge Orders: Discharge Order (Routine); Ordered 06/17/22 Ordered By: Ronn Saunders Diet: Advance to usual diet Activity on Discharge: no alcohol Stand Alone Forms: Patient Portal Discharge page Care Plan Goals: sobriety Health Concerns: alcohol use disorder, substance induced mood disorder, alcohol withdrawal, alcoholic ketoacidosis, hypomagnesemia, hypokalemia, alcoholic hepatitis Plan of Treatment: transfer to geriatric psychiatry for inpatient treatment continue potassium chloride + magnesium oxide continue thiamine + folate please order labs to check 06/19/22: CMP, magnesium, CBCd Assessment: See Discharge Summary. Discharge Date/Time: 06/17/22 16:13
[2022-06-17 12:00] VITALS: BP 113/71; PULSE 94; RESP 18; TEMP 36.2; O2SAT 97
--- NOTE | 2022-06-17 12:08 | HO.PM.IMPN ---
Subjective Subjective Date of Service: 06/17/22 Interval History: feels weak, depressed no tremors K/Mg normal now Review of Systems Review of Systems: Yes all other systems are reviewed and are negative Physical Exam Vital Signs: Vital Signs: Last Vital Signs Temp 97.1 F 06/17/22 12:00 Pulse 94 06/17/22 12:00 Resp 18 06/17/22 12:00 BP 113/71 06/17/22 12:00 Pulse Ox 97 06/17/22 12:00 O2 Del Method Room Air 06/17/22 12:00 BMI result Body Mass Index 24.1 Gen: in no acute distress HEENT: sclera anicteric, moist mucus membranes Neck: supple Lungs: clear to auscultation bilaterally Heart: regular rate and rhythm, no murmurs Abd: soft, non-tender, non-distended Ext: no edema Skin: warm/well-perfused Neuro: alert and oriented x3, no focal findings Psych: restricted affect Objective Data Active Medications Acetaminophen (Acetaminophen 325 Mg Tablet) 650 mg PO Q6H PRN PRN Reason: Pain, Mild (Pain Scale 1-3) Last Admin: 06/17/22 04:45 Dose: 650 mg Documented By: KIA Docusate Sodium (Docusate Sodium 100 Mg Capsule) 100 mg PO DAILY PRN PRN Reason: Constipation Folic Acid (Folic Acid 1 Mg Tablet) 1 mg PO DAILY [facility] Last Admin: 06/17/22 08:40 Dose: 1 mg Documented By: ELIAN Magnesium Oxide (Magnesium Oxide 400 Mg Tablet) 400 mg PO BIDPC [facility] Last Admin: 06/17/22 08:40 Dose: 400 mg Documented By: ELIAN Mirtazapine (Mirtazapine 15 Mg Tablet) 45 mg PO BEDTIME [facility] Last Admin: 06/16/22 21:17 Dose: 45 mg Documented By: KIA Naltrexone HCl (Naltrexone Hcl 50 Mg Tablet) 50 mg PO DAILY [facility] Last Admin: 06/17/22 08:40 Dose: 50 mg Documented By: ELIAN Ondansetron HCl (Ondansetron Hcl 4 Mg/2 Ml Vial) 4 mg IVPUSH Q8H PRN PRN Reason: Nausea and Vomiting Last Admin: 06/15/22 19:12 Dose: 4 mg Documented By: LEANNE Pharmacy Consult (Consult Rx Etoh Phenob Po Only) 1 each MISCELLANE ONCE PRN; Protocol PRN Reason: Consult order Potassium Chloride (Potassium Chloride Er 20 Meq Tab.Er.Prt) 40 meq PO DAILY [facility] Sodium Chloride (0.9 % Sodium Chloride Flush 3 Ml Syringe) 3 ml IVFLUSH QSHIFT [facility] Last Admin: 06/17/22 08:40 Dose: 3 ml Documented By: ELIAN Thiamine HCl (Thiamine Hcl 100 Mg Tablet) 100 mg PO DAILY [facility] Last Admin: 06/17/22 08:40 Dose: 100 mg Documented By: ELIAN Trazodone HCl (Trazodone Hcl 50 Mg Tablet) 50 mg PO BEDTIME PRN PRN Reason: Insomnia Last Admin: 06/16/22 21:18 Dose: 50 mg Documented By: KIA Labs 06/17/22 06:26 06/17/22 06:26 Labs: Laboratory Results - last 24 hr 06/16/22 06/17/22 06/17/22 12:21 06:26 06:26 MCV 90.3 MCH 31.3 MCHC 34.7 RDW 15.4 Plt Count 76 L D MPV 11.3 Absolute Nucleated RBC 0.000 Nucleated RBC % (auto) 0.0 PT INR Anion Gap 12 10 L Estim Creat Clear Calc 60.1 61.8 Estimated GFR > 60 > 60 Random Glucose 140 H 101 Calcium 8.5 8.2 L Magnesium 2.1 2.0 Total Bilirubin 1.0 AST 160 H ALT 157 H Alkaline Phosphatase 80 Total Protein 5.5 L Albumin 3.1 L 06/17/22 06:26 MCV MCH MCHC RDW Plt Count MPV Absolute Nucleated RBC Nucleated RBC % (auto) PT 10.0 INR 0.9 Anion Gap Estim Creat Clear Calc Estimated GFR Random Glucose Calcium Magnesium Total Bilirubin AST ALT Alkaline Phosphatase Total Protein Albumin Microbiology Microbiology Results: Microbiology 06/11/22 16:38 Blood Culture - Final Blood - Venous No growth after 5 days. 06/11/22 16:19 Blood Culture - Final Blood - Venous No growth after 5 days. Assessment and Plan (1) Alcohol withdrawal: Status: Acute Plan d#7 72-year-old female with past medical history of alcohol abuse presents to the hospital with complaints of increased weakness, poor oral intake, and alcohol abuse; admitted with active withdrawal # hypoK # hypoMg - repleted, recheck CMP/Mg in 2d # alcohol use disorder with EtOH withdrawal - on phenobarbital protocol, few episodes of tachycardia and elevated blood pressure - continue thiamine and folic acid, continue naltrexone - seizure precautions, seen by care team and placed under Section 12 due to concern for depression and suicidal ideation - will need to go to psychiatry inpatient once medically cleared, which she is now # EtOH ketoacidosis - resolved # EtOH hepatitis - abstain from EtOH, no steroids at this level, recheck CMP in 1 wk # thrombocytopenia - due to EtOH, improving, recheck CBC in 1 wk # depression with SI - continue mirtazapine + trazodone. Psych transfer when medically cleared which she is now. Sitter. # VTE ppx: SCDs # dispo: psych In my clinical judgment, the patient requires continued inpatient hospitalization for the following reasons: psych transfer Time Spent With Patient Time: Total time managing care of this patient today __35__ minutes. Quality Stroke Does the patient have a stroke diagnosis?: No VTE Prior VTE?: No VTE Risk Level:: Medical - moderate - high VTE Device Contraindication: Treatment Not Indicated VTE Drug Contraindication: N/A - Med Ordered
[2022-06-17] MEDS: Potassium Chloride ER 20 MEQ TAB.ER.PRT 40 MEQ PO (12:55)
[2022-06-17 15:15] VITALS: BP 130/86; PULSE 89; RESP 20; TEMP 36.4; O2SAT 98
[2022-06-17 15:31] LABS: COVID-19 Test Negative (Negative); IDNOW Serial# BCCEAD1C
[2022-06-19 09:16] LABS: ~HepC Num1 0.25 S/CO (0.00-0.79); ~Hepatitis C Antibody Nonreactive (Nonreactive)
[2022-06-19 09:17] LABS: HBS Num1 52.85 mIU/mL (0-7.99); HBc Num1 1.81 S/CO (0.00-0.79); HBsAGNum1 0.31 S/CO (0.00-0.99); Hepatitis B Surface Antigen Negative (Negative); ~Hepatitis B Surface Antibody REACTIVE (Nonreactive)
[2022-06-19 10:08] LABS: HBc Num2 2.01 S/CO; HBc Num3 1.85 S/CO; Hepatitis B Core Antibody Reactive (Nonreactive)
== END 2022-06-17 16:13 | DRG 641 ==
LOC: HO.ED 16:56 → HO.EDOVER 21:25 → HO.IMC 06-12 07:33
PROVIDERS: Hospitalist; Physician Assistant; Admitting Provider Internal Medicine; Emergency Provider Student in an Organized Health Care Education/Training Program; PCP Internal Medicine; Visit Provider Family Medicine
DX: E87.6 Hypokalemia (principal); J98.11 Atelectasis; F10.231 Alcohol dependence with withdrawal delirium; R45.851 Suicidal ideations; E87.29 Other acidosis; E86.0 Dehydration; E83.42 Hypomagnesemia; F32.9 Major depressive disorder, single episode, unspecified; K70.10 Alcoholic hepatitis without ascites; D69.59 Other secondary thrombocytopenia; Z20.822 Contact with and (suspected) exposure to COVID-19; Y90.8 Blood alcohol level of 240 mg/100 ml or more; Z79.899 Other long term (current) drug therapy
CPT/HCPCS: 0241U; 36415; 70450; 71045; 80048; 80053; 80076; 80307; 81001; 82140; 82436; 82550; 82803; 83605; 83735; 83880; 83930; 83935; 84133; 84300; 84484; 85025; 85027; 85610; 86704; 86706; 86803; 87040; 87340; 87635; 93005; 99285; J0696; J1650; J2060; J2405; J2560; J3475

== ENCOUNTER 2022-06-17 17:02 | Inpatient (IN) | payer MEDICARE, MEDICAID, SELFPAY ==
[2022-06-17] MEDS: Magnesium Oxide 400 MG TABLET PO (17:25)
[2022-06-17 18:00] VITALS: BP 128/67; PULSE 89; RESP 16; TEMP 36.4; O2SAT 96
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
[2022-06-17] MEDS: Mirtazapine 15 MG TABLET 45 MG PO (21:19)
[2022-06-18 07:06] LABS: Cholesterol 212 mg/dL; HDL Cholesterol 51 mg/dL; LDL Cholesterol Calculated 129 mg/dl; Triglycerides 160 mg/dL
[2022-06-18 07:30] VITALS: BP 169/82; PULSE 94; RESP 16; TEMP 36.3; O2SAT 98
[2022-06-18] MEDS: Folic Acid 1 MG TABLET PO (08:58)
[2022-06-18] MEDS: Magnesium Oxide 400 MG TABLET PO ×2 (08:58→17:14)
[2022-06-18] MEDS: Thiamine HCL 100 MG TABLET PO (08:58)
[2022-06-18] MEDS: Potassium Chloride ER 20 MEQ TAB.ER.PRT 40 MEQ PO (08:58)
[2022-06-18] MEDS: Naltrexone HCl 50 MG TABLET PO (08:58)
--- NOTE | 2022-06-18 10:45 | P.HPPS_ITS ---
HPI Date of Service: 06/18/22 Chief Complaint: behavioral Sources of Information: patient interviewed and chart reviewed HPI Subjective Notes: Conditional Voluntary Healthcare Proxy: No Guardianship: No Medical Problems Affecting Mental Status: Yes (alcohol use) Narrative: Patient reports she has continued drinking which makes her depressed, sleep and sometimes suicidal - denying current plan- Would like to get treatment for depression and agrees making use of AA or some 12 step might be a good follow up for her. She said there has been some conflict with sons, who likely do not want to be involved with her when drinking/ feels torn as he gets her alcohol due to fear she will drink and drive if he doesn't. She had threatened to hang herself or cut her wrists Pt was transfered to this unit after phenobarb detox on medical unit and potassium and magnesium replacement. Past Psychiatric History: Denies prior contact, her primary care physician refer her to outpatient services Medical Evaluation Reviewed: Yes discussed with dr Saunders yesterday [facility] Medical History (Updated 06/17/22 @ 11:53 by Ronn Saunders MD) Alcohol abuse Depression, acute Substance induced mood disorder Surgical History No pertinent past surgical history Family History: denies Social History: the patient is , she is an immigrant from [place], she has 2 adult children. She lives with her and she has become the primary caregiver.\They have a dog muffin Substance History: Alcohol says she would like to stop - and will agree to medication and referrals Trauma History: refused to elaborate Diagnostics Vital Signs (24Hr): Vital Signs - 24 hr 06/17/22 18:00 06/18/22 07:30 Temperature 97.6 F 97.3 F Pulse Rate 89 94 Respiratory Rate 16 16 Blood Pressure 128/67 169/82 H Pulse Oximetry 96 98 Oxygen Delivery Method Room Air Room Air Labs Labs: Laboratory Results - last 48 hr 06/18/22 06:38 Triglycerides 160 Cholesterol 212 LDL Cholesterol, Calc 129 HDL Cholesterol 51 Meds/Allergies Meds Home Medications Medication Instructions Recorded Confirmed Type mirtazapine 45 mg tablet 45 mg PO BEDTIME 06/11/22 06/18/22 History Allergies Allergies Allergy/AdvReac Type Severity Reaction Status Date / Time No Known Allergies Allergy Verified 05/15/22 10:46 Mental Status Exam Mental Status Exam Narrative: Wearing a [place], good eye contact, Patient Appearance: Unkempt (hair, probably hasn't had chance to shower on medical unit) Patient Orientation: Person, Place, Time and Situation Level of Consciousness: Awake and Appropriate Patient Behavior: Appropriate and Talkative Mood Description: Calm Affect Description: Calm Patient Cognition Impaired: No Ability to Follow Directions: Good Speech Pattern: Clear (other than accent) Hallucinations: None Delusions: Not Present Thought Process: Intact Thought Content: positive for Intact and positive for Perseveration Depressive Symptoms: Sleeping More Than Usual, Loss of Int. in Activity and Increased Fatigue Judgement: Fair Assessment & Plan Assessment & Plan (1) Suicidal ideation: Status: Acute Code(s): R45.851 - Suicidal ideations Assessment and Plan: feels safe on unit (2) Alcohol use disorder, severe, dependence: Status: Acute Code(s): F10.20 - Alcohol dependence, uncomplicated Assessment and Plan: s/p phenobarb treatment/tapering (3) Depression: Status: Acute Code(s): F32.A - Depression, unspecified Assessment and Plan: on mirtazapine- could use couples/family work as well as 12 step Plan admit for safety continue phenobarb taper mileu therapy- and groups Patient educated on: diagnosis, medication risk/benefits and substance abuse Informed Consent: understands and further education needed (especially re follow up outpatient) Reason for continued inpatient stay Substantial Risk for: harm to self and rapid decompensation Statement Statement: I have reviewed the history and physical and performed a pertinent examination on my patient. No changes have occurred unless specified. If the History and Physical was not performed prior to admission, the Hospitalist's service will be consulted for completing the admission physical. Time Spent With Patient Time: Total time managing care of this patient today ____ minutes.
[2022-06-18 18:00] VITALS: BP 148/63; PULSE 98; RESP 18; TEMP 36.7; O2SAT 97
[2022-06-18] MEDS: Mirtazapine 15 MG TABLET 45 MG PO (20:32)
[2022-06-19 08:15] VITALS: BP 149/84; PULSE 92; RESP 16; TEMP 36.5; O2SAT 97
[2022-06-19 08:31] LABS: Hematocrit 40.4 % (37.0-47.0); Hemoglobin 13.6 g/dl (12.0-16.0); Mean Corpuscular HGB Conc 33.7 g/dl (31.0-35.0); Mean Corpuscular Hemoglobin 31.3 pg (27.0-33.0); Mean Corpuscular Volume 93.1 fL (80.0-98.0); Mean Platelet Volume 10.7 fL (9.4-12.3); Platelet Count 174 X10*3/uL (160-400); Red Blood Count 4.34 X10*6/uL (4.20-5.50); Red Cell Distribution Width 16.2 % (11.0-16.0); White Blood Count 3.3 X10*3/uL (4.8-10.8)
[2022-06-19 08:48] LABS: Alanine Aminotransferase 222 U/L (0-31); Albumin Level 3.6 g/dL (3.5-5.0); Alkaline Phosphatase 79 U/L (39-117); Anion Gap 12 (12-20); Aspartate Amino Transferase 273 U/L (5-31); Blood Urea Nitrogen 7 mg/dL (9-16); Calcium 8.9 mg/dL (8.4-10.2); Carbon Dioxide 28 mmol/L (22-29); Chloride 103 mmol/L (96-108); Estimated Glomerular Filt Rate > 60; Glucose Random 148 mg/dL (60-115); Magnesium 2.1 mg/dL (1.6-2.6); Potassium 4.8 mmol/L (3.3-5.1); Sodium 138 mmol/L (135-145); Total Protein 6.3 g/dL (6.5-8.0)
[2022-06-19] MEDS: Thiamine HCL 100 MG TABLET PO (09:36)
[2022-06-19] MEDS: Magnesium Oxide 400 MG TABLET PO ×2 (09:36→17:09)
[2022-06-19] MEDS: Naltrexone HCl 50 MG TABLET PO (09:36)
[2022-06-19] MEDS: Folic Acid 1 MG TABLET PO (09:36)
--- NOTE | 2022-06-19 12:09 | HO.PSYCHPN ---
Subjective Subjective Date of Service: 06/19/22 Reason For Visit: behavioral Subjective Notes: Conditional Voluntary Interim History: The nursing staff reported the patient has reported depression. But she denies adamantly suicidal ideation. The occupational therapist reported that she score 3.6 on the Eyad test. On interview the patient reported that she is feeling fine and wants treatment for alcohol use disorder. She denies active suicidal ideation. The medical team reported that she cannot use naltrexone yet since she has liver damage. We will repeat blood work tomorrow Mental Status Exam Mental Status Exam Patient Appearance: Well Grooomed and Appropriate Patient Orientation: Person and Situation Level of Consciousness: Awake and Appropriate Patient Behavior: Guarded and Passive Mood Description: Withdrawn Affect Description: Constricted Patient Cognition Impaired: Yes Ability to Follow Directions: Good Speech Pattern: Clear Memory Description: Intact Hallucinations: None Delusions: Not Present Thought Process: Linear Thought Content: positive for Circumstantial Judgement: Fair Diagnostics Vital Signs (24Hr): Vital Signs - 24 hr 06/18/22 18:00 06/19/22 08:15 Temperature 98.1 F 97.7 F Pulse Rate 98 92 Respiratory Rate 18 16 Blood Pressure 148/63 H 149/84 H Pulse Oximetry 97 97 Oxygen Delivery Method Room Air Room Air Labs 06/19/22 07:59 06/19/22 07:59 Labs: Laboratory Results - last 48 hr 06/18/22 06/19/22 06/19/22 06:38 07:59 07:59 WBC 3.3 L RBC 4.34 Hgb 13.6 Hct 40.4 MCV 93.1 MCH 31.3 MCHC 33.7 RDW 16.2 H Plt Count 174 D MPV 10.7 Absolute Nucleated RBC 0.000 Nucleated RBC % (auto) 0.0 Sodium Cancelled Potassium Cancelled Chloride Cancelled Carbon Dioxide Cancelled Anion Gap Cancelled BUN Cancelled Creatinine Cancelled Estim Creat Clear Calc Cancelled Estimated GFR Cancelled Random Glucose Fasting Glucose Cancelled Calcium Cancelled Magnesium Total Bilirubin Cancelled AST Cancelled ALT Cancelled Alkaline Phosphatase Cancelled Total Protein Cancelled Albumin Cancelled Triglycerides 160 Cholesterol 212 LDL Cholesterol, Calc 129 HDL Cholesterol 51 06/19/22 07:59 WBC RBC Hgb Hct MCV MCH MCHC RDW Plt Count MPV Absolute Nucleated RBC Nucleated RBC % (auto) Sodium 138 Potassium 4.8 D Chloride 103 Carbon Dioxide 28 Anion Gap 12 BUN 7 L Creatinine 0.78 Estim Creat Clear Calc TNP Estimated GFR > 60 Random Glucose 148 H Fasting Glucose Calcium 8.9 D Magnesium 2.1 Total Bilirubin 1.0 AST 273 H ALT 222 H Alkaline Phosphatase 79 Total Protein 6.3 L Albumin 3.6 Triglycerides Cholesterol LDL Cholesterol, Calc HDL Cholesterol Medications Medications Current Medications Acetaminophen (Acetaminophen 325 Mg Tablet) 650 mg PO Q6H PRN PRN Reason: Headache/Pain Mild Scale (1-3) Al Hydroxide/Mg Hydroxide (Magnesium Hydrox/Alum Hydrox 30 Ml Oral.Susp) 30 ml PO Q6H PRN PRN Reason: Heartburn/Nausea Folic Acid (Folic Acid 1 Mg Tablet) 1 mg PO DAILY [facility] Last Admin: 06/19/22 09:36 Dose: 1 mg Magnesium Hydroxide (Milk Of Magnesia 30 Ml Oral.Susp) 30 ml PO DAILY PRN PRN Reason: Constipation Magnesium Oxide (Magnesium Oxide 400 Mg Tablet) 400 mg PO BIDPC [facility] Last Admin: 06/19/22 09:36 Dose: 400 mg Mirtazapine (Mirtazapine 15 Mg Tablet) 45 mg PO BEDTIME [facility] Last Admin: 06/18/22 20:32 Dose: 45 mg Naltrexone HCl (Naltrexone Hcl 50 Mg Tablet) 50 mg PO DAILY [facility] Last Admin: 06/19/22 09:36 Dose: 50 mg Potassium Chloride (Potassium Chloride Er 20 Meq Tab.Er.Prt) 40 meq PO DAILY [facility] Last Admin: 06/19/22 09:42 Dose: Not Given Thiamine HCl (Thiamine Hcl 100 Mg Tablet) 100 mg PO DAILY [facility] Last Admin: 06/19/22 09:36 Dose: 100 mg Allergies Allergies Allergy/AdvReac Type Severity Reaction Status Date / Time No Known Allergies Allergy Verified 05/15/22 10:46 Assessment & Plan Assessment & Plan (1) Suicidal ideation: Status: Acute Code(s): R45.851 - Suicidal ideations Assessment and Plan: feels safe on unit (2) Alcohol use disorder, severe, dependence: Status: Acute Code(s): F10.20 - Alcohol dependence, uncomplicated Assessment and Plan: s/p phenobarb treatment/tapering (3) Depression: Status: Acute Code(s): F32.A - Depression, unspecified Assessment and Plan: on mirtazapine- could use couples/family work as well as 12 step Plan admit for safety continue phenobarb taper mileu therapy- and groups LFT, BMP AND GGT for tomorrow AM Reason for continued inpatient stay Substantial Risk for: inability to function, rapid decompensation and med/psych decompensation Time Spent With Patient Time: Total time managing care of this patient today __20__ minutes.
[2022-06-19 14:57] VITALS: BMI 24.9
[2022-06-19 18:00] VITALS: BP 144/89; PULSE 98; RESP 18; TEMP 36.5; O2SAT 98
[2022-06-19] MEDS: Mirtazapine 15 MG TABLET 45 MG PO (20:38)
[2022-06-20 07:30] VITALS: BP 166/77; PULSE 83; RESP 20; TEMP 36.4; O2SAT 97
[2022-06-20] MEDS: Naltrexone HCl 50 MG TABLET PO (08:16)
[2022-06-20] MEDS: Thiamine HCL 100 MG TABLET PO (08:16)
[2022-06-20] MEDS: Magnesium Oxide 400 MG TABLET PO ×2 (08:16→16:59)
[2022-06-20] MEDS: Folic Acid 1 MG TABLET PO (08:17)
--- NOTE | 2022-06-20 08:23 | P.PNPSI_ITS ---
Subjective Subjective Date of Service: 06/20/22 Reason For Visit: behavioral Subjective Notes: Conditional Voluntary Interim History: The nursing staff reported the patient had been visible in the unit, engageable. She has complained of auditory hallucinations commanding her to do things. She denies suicidal or homicidal ideation. She slept well last night. The social service agency director will try to contact her son who is the healthcare proxy. On interview the patient reported that she is feeling fine and she wants to be discharged she minimized her auditory hallucinations. We will start haloperidol 2 mg p.o. b.i.d. since the patient was on alcohol withdrawal protocol and probably she was on delirium tremens. No safety concerns at this moment. She was started on ReVia on the medical unit even though that her LFTs were slightly high. We will order blood work for tomorrow. Mental Status Exam Mental Status Exam Patient Appearance: Appropriate Patient Orientation: Person, Place and Situation Level of Consciousness: Awake Patient Behavior: Guarded and Passive Mood Description: Withdrawn and Depressed Affect Description: Constricted Patient Cognition Impaired: Yes Ability to Follow Directions: Good Speech Pattern: Clear Hallucinations: None Delusions: Not Present Thought Process: Distracted Thought Content: positive for [place] and positive for Circumstantial Judgement: Fair Diagnostics Vital Signs (24Hr): Vital Signs - 24 hr 06/19/22 18:00 06/20/22 07:30 Temperature 97.7 F 97.5 F Pulse Rate 98 83 Respiratory Rate 18 20 Blood Pressure 144/89 H 166/77 H Pulse Oximetry 98 97 Oxygen Delivery Method Room Air Room Air BMI result Body Mass Index 24.9 Labs 06/19/22 07:59 06/19/22 07:59 Labs: Laboratory Results - last 48 hr 06/19/22 06/19/22 06/19/22 07:59 07:59 07:59 WBC 3.3 L RBC 4.34 Hgb 13.6 Hct 40.4 MCV 93.1 MCH 31.3 MCHC 33.7 RDW 16.2 H Plt Count 174 D MPV 10.7 Absolute Nucleated RBC 0.000 Nucleated RBC % (auto) 0.0 Sodium Cancelled 138 Potassium Cancelled 4.8 D Chloride Cancelled 103 Carbon Dioxide Cancelled 28 Anion Gap Cancelled 12 BUN Cancelled 7 L Creatinine Cancelled 0.78 Estim Creat Clear Calc Cancelled TNP Estimated GFR Cancelled > 60 Random Glucose 148 H Fasting Glucose Cancelled Calcium Cancelled 8.9 D Magnesium 2.1 Total Bilirubin Cancelled 1.0 AST Cancelled 273 H ALT Cancelled 222 H Alkaline Phosphatase Cancelled 79 Total Protein Cancelled 6.3 L Albumin Cancelled 3.6 Medications Medications Current Medications Acetaminophen (Acetaminophen 325 Mg Tablet) 650 mg PO Q6H PRN PRN Reason: Headache/Pain Mild Scale (1-3) Al Hydroxide/Mg Hydroxide (Magnesium Hydrox/Alum Hydrox 30 Ml Oral.Susp) 30 ml PO Q6H PRN PRN Reason: Heartburn/Nausea Folic Acid (Folic Acid 1 Mg Tablet) 1 mg PO DAILY [facility] Last Admin: 06/20/22 08:17 Dose: 1 mg Magnesium Hydroxide (Milk Of Magnesia 30 Ml Oral.Susp) 30 ml PO DAILY PRN PRN Reason: Constipation Magnesium Oxide (Magnesium Oxide 400 Mg Tablet) 400 mg PO BIDPC [facility] Last Admin: 06/20/22 08:16 Dose: 400 mg Mirtazapine (Mirtazapine 15 Mg Tablet) 45 mg PO BEDTIME [facility] Last Admin: 06/19/22 20:38 Dose: 45 mg Naltrexone HCl (Naltrexone Hcl 50 Mg Tablet) 50 mg PO DAILY [facility] Last Admin: 06/20/22 08:16 Dose: 50 mg Thiamine HCl (Thiamine Hcl 100 Mg Tablet) 100 mg PO DAILY [facility] Last Admin: 06/20/22 08:16 Dose: 100 mg Allergies Allergies Allergy/AdvReac Type Severity Reaction Status Date / Time No Known Allergies Allergy Verified 05/15/22 10:46 Assessment & Plan Assessment & Plan (1) Suicidal ideation: Status: Acute Code(s): R45.851 - Suicidal ideations Assessment and Plan: feels safe on unit (2) Alcohol use disorder, severe, dependence: Status: Acute Code(s): F10.20 - Alcohol dependence, uncomplicated Assessment and Plan: s/p phenobarb treatment/tapering (3) Depression: Status: Acute Code(s): F32.A - Depression, unspecified Assessment and Plan: on mirtazapine- could use couples/family work as well as 12 step Plan admit for safety continue phenobarb taper mileu therapy- and groups Reason for continued inpatient stay Substantial Risk for: inability to function, rapid decompensation and med/psych decompensation Time Spent With Patient Time: Total time managing care of this patient today __20__ minutes.
[2022-06-20] MEDS: HaloperidoL 1 MG TABLET 2 MG PO ×2 (10:42→20:30)
[2022-06-20 18:31] VITALS: BP 138/80; PULSE 86; RESP 16; TEMP 36.2; O2SAT 97
[2022-06-20] MEDS: Mirtazapine 15 MG TABLET 45 MG PO (20:30)
[2022-06-21 08:08] VITALS: BP 122/82; PULSE 90; RESP 18; TEMP 36.3; O2SAT 97
[2022-06-21] MEDS: Magnesium Oxide 400 MG TABLET PO ×2 (08:25→17:09)
[2022-06-21] MEDS: Thiamine HCL 100 MG TABLET PO (08:25)
[2022-06-21] MEDS: Folic Acid 1 MG TABLET PO (08:25)
[2022-06-21] MEDS: HaloperidoL 1 MG TABLET 2 MG PO ×2 (08:25→20:29)
[2022-06-21] MEDS: Naltrexone HCl 50 MG TABLET PO (08:25)
--- NOTE | 2022-06-21 13:33 | HO.PSYCHPN ---
Subjective Subjective Date of Service: 06/21/22 Reason For Visit: behavioral Subjective Notes: Conditional Voluntary Interim History: The nursing staff reported the patient slept well last night she has been pleasant and cooperative. She disclosed to the staff that she has fears of discharge. The social services counselor reported that she call her son who is the healthcare proxy. She also did a referral to pace program. We are applying for [facility] for outpatient services. On interview the patient denies new symptoms I ordered LFTs UA GT and basic metabolic panel for tomorrow. Mental Status Exam Mental Status Exam Patient Appearance: Well Grooomed and Appropriate Patient Orientation: Person and Situation Level of Consciousness: Awake and Appropriate Patient Behavior: Guarded and Passive Mood Description: Withdrawn and Constricted Affect Description: Constricted Patient Cognition Impaired: Yes Ability to Follow Directions: Good Speech Pattern: Appropriate Hallucinations: None Delusions: Not Present Thought Process: Linear Thought Content: positive for [place] and positive for Circumstantial Judgement: Fair Diagnostics Vital Signs (24Hr): Vital Signs - 24 hr 06/20/22 18:31 06/21/22 08:08 Temperature 97.2 F 97.4 F Pulse Rate 86 90 Respiratory Rate 16 18 Blood Pressure 138/80 122/82 Pulse Oximetry 97 97 Oxygen Delivery Method Room Air Room Air BMI result Body Mass Index 24.9 Labs 06/19/22 07:59 06/19/22 07:59 Medications Medications Current Medications Acetaminophen (Acetaminophen 325 Mg Tablet) 650 mg PO Q6H PRN PRN Reason: Headache/Pain Mild Scale (1-3) Al Hydroxide/Mg Hydroxide (Magnesium Hydrox/Alum Hydrox 30 Ml Oral.Susp) 30 ml PO Q6H PRN PRN Reason: Heartburn/Nausea Folic Acid (Folic Acid 1 Mg Tablet) 1 mg PO DAILY [facility] Last Admin: 06/21/22 08:25 Dose: 1 mg Haloperidol (Haloperidol 1 Mg Tablet) 2 mg PO BID [facility] Last Admin: 06/21/22 08:25 Dose: 2 mg Magnesium Hydroxide (Milk Of Magnesia 30 Ml Oral.Susp) 30 ml PO DAILY PRN PRN Reason: Constipation Magnesium Oxide (Magnesium Oxide 400 Mg Tablet) 400 mg PO BIDPC [facility] Last Admin: 06/21/22 08:25 Dose: 400 mg Mirtazapine (Mirtazapine 15 Mg Tablet) 45 mg PO BEDTIME [facility] Last Admin: 06/20/22 20:30 Dose: 45 mg Naltrexone HCl (Naltrexone Hcl 50 Mg Tablet) 50 mg PO DAILY [facility] Last Admin: 06/21/22 08:25 Dose: 50 mg Thiamine HCl (Thiamine Hcl 100 Mg Tablet) 100 mg PO DAILY [facility] Last Admin: 06/21/22 08:25 Dose: 100 mg Allergies Allergies Allergy/AdvReac Type Severity Reaction Status Date / Time No Known Allergies Allergy Verified 05/15/22 10:46 Assessment & Plan Assessment & Plan (1) Suicidal ideation: Status: Acute Code(s): R45.851 - Suicidal ideations Assessment and Plan: feels safe on unit (2) Alcohol use disorder, severe, dependence: Status: Acute Code(s): F10.20 - Alcohol dependence, uncomplicated Assessment and Plan: s/p phenobarb treatment/tapering (3) Depression: Status: Acute Code(s): F32.A - Depression, unspecified Assessment and Plan: on mirtazapine- could use couples/family work as well as 12 step Plan admit for safety continue phenobarb taper mileu therapy- and groups LFT, GGT and basic metabolic panel for June 22 in the morning Reason for continued inpatient stay Substantial Risk for: inability to function, rapid decompensation and med/psych decompensation Time Spent With Patient Time: Total time managing care of this patient today __20__ minutes.
[2022-06-21 18:00] VITALS: BP 158/85; PULSE 92; RESP 18; TEMP 36.2; O2SAT 97
[2022-06-21] MEDS: Mirtazapine 15 MG TABLET 45 MG PO (20:29)
[2022-06-22 07:55] VITALS: BP 131/62; PULSE 89; RESP 18; TEMP 36.8; O2SAT 95
[2022-06-22] MEDS: HaloperidoL 1 MG TABLET 2 MG PO ×2 (08:13→20:22)
[2022-06-22] MEDS: Naltrexone HCl 50 MG TABLET PO (08:13)
[2022-06-22] MEDS: Magnesium Oxide 400 MG TABLET PO ×2 (08:13→17:21)
[2022-06-22] MEDS: Folic Acid 1 MG TABLET PO (08:13)
[2022-06-22] MEDS: Thiamine HCL 100 MG TABLET PO (08:13)
[2022-06-22 09:17] LABS: Alanine Aminotransferase 189 U/L (0-31); Albumin Level 3.7 g/dL (3.5-5.0); Alkaline Phosphatase 77 U/L (39-117); Anion Gap 20 (12-20); Aspartate Amino Transferase 175 U/L (5-31); Bilirubin Direct 0.4 mg/dL (0.0-0.5); Bilirubin Total 0.9 mg/dL (0.0-1.0); Blood Urea Nitrogen 8 mg/dL (9-16); Calcium 9.3 mg/dL (8.4-10.2); Carbon Dioxide 23 mmol/L (22-29); Chloride 103 mmol/L (96-108); Creatinine Clr Calc Pharmacy 52.6; Estimated Glomerular Filt Rate > 60; Glucose Random 137 mg/dL (60-115); Potassium 4.9 mmol/L (3.3-5.1); Sodium 141 mmol/L (135-145); Total Protein 6.7 g/dL (6.5-8.0)
[2022-06-22 09:34] LABS: Gamma Glutamyl Transpeptidase 394 U/L (7-33)
[2022-06-22 09:47] VITALS: BMI 24.4
--- NOTE | 2022-06-22 14:43 | P.PNPSI_ITS ---
Subjective Subjective Date of Service: 06/22/22 Reason For Visit: behavioral Subjective Notes: Conditional Voluntary Interim History: The nursing staff reported the patient had been fully compliant with treatment, no evidence of side effects with current medications. The occupational therapist reported that she was able to participate in groups. The social sciences lecturer reported that she was referred to several services in the community for discharge such as a day program therapist and psychiatrist. Her wants her back at home. On interview the patient adamantly denies of suicidal ideation, she wants to be discharged as soon as possible. Mental Status Exam Mental Status Exam Patient Appearance: Well Grooomed and Appropriate Patient Orientation: Person and Situation Level of Consciousness: Awake and Appropriate Patient Behavior: Guarded and Passive Mood Description: Withdrawn Affect Description: Constricted Patient Cognition Impaired: Yes Ability to Follow Directions: Good Speech Pattern: Clear Hallucinations: None Delusions: Not Present Thought Process: Distracted Thought Content: positive for [place] Judgement: Fair Diagnostics Vital Signs (24Hr): Vital Signs - 24 hr 06/21/22 18:00 06/22/22 07:55 Temperature 97.2 F 98.2 F Pulse Rate 92 89 Respiratory Rate 18 18 Blood Pressure 158/85 H 131/62 Pulse Oximetry 97 95 Oxygen Delivery Method Room Air Room Air BMI result Body Mass Index 24.4 Labs 06/19/22 07:59 06/22/22 08:19 Labs: Laboratory Results - last 48 hr 06/22/22 08:19 Sodium 141 Potassium 4.9 Chloride 103 Carbon Dioxide 23 Anion Gap 20 BUN 8 L Creatinine 0.88 Estim Creat Clear Calc 52.6 Estimated GFR > 60 Random Glucose 137 H Calcium 9.3 Total Bilirubin 0.9 Direct Bilirubin 0.4 GGT 394 H AST 175 H ALT 189 H Alkaline Phosphatase 77 Total Protein 6.7 Albumin 3.7 Medications Medications Current Medications Acetaminophen (Acetaminophen 325 Mg Tablet) 650 mg PO Q6H PRN PRN Reason: Headache/Pain Mild Scale (1-3) Al Hydroxide/Mg Hydroxide (Magnesium Hydrox/Alum Hydrox 30 Ml Oral.Susp) 30 ml PO Q6H PRN PRN Reason: Heartburn/Nausea Folic Acid (Folic Acid 1 Mg Tablet) 1 mg PO DAILY [facility] Last Admin: 06/22/22 08:13 Dose: 1 mg Haloperidol (Haloperidol 1 Mg Tablet) 2 mg PO BID [facility] Last Admin: 06/22/22 08:13 Dose: 2 mg Magnesium Hydroxide (Milk Of Magnesia 30 Ml Oral.Susp) 30 ml PO DAILY PRN PRN Reason: Constipation Magnesium Oxide (Magnesium Oxide 400 Mg Tablet) 400 mg PO BIDPC [facility] Last Admin: 06/22/22 08:13 Dose: 400 mg Mirtazapine (Mirtazapine 15 Mg Tablet) 45 mg PO BEDTIME [facility] Last Admin: 06/21/22 20:29 Dose: 45 mg Naltrexone HCl (Naltrexone Hcl 50 Mg Tablet) 50 mg PO DAILY [facility] Last Admin: 06/22/22 08:13 Dose: 50 mg Thiamine HCl (Thiamine Hcl 100 Mg Tablet) 100 mg PO DAILY [facility] Last Admin: 06/22/22 08:13 Dose: 100 mg Allergies Allergies Allergy/AdvReac Type Severity Reaction Status Date / Time No Known Allergies Allergy Verified 05/15/22 10:46 Assessment & Plan Assessment & Plan (1) Suicidal ideation: Status: Acute Code(s): R45.851 - Suicidal ideations Assessment and Plan: feels safe on unit (2) Alcohol use disorder, severe, dependence: Status: Acute Code(s): F10.20 - Alcohol dependence, uncomplicated Assessment and Plan: s/p phenobarb treatment/tapering (3) Depression: Status: Acute Code(s): F32.A - Depression, unspecified Assessment and Plan: on mirtazapine- could use couples/family work as well as 12 step Plan admit for safety continue phenobarb taper mileu therapy- and groups LFT, GGT and basic metabolic panel for June 22 in the morning came back with a trending down. Reason for continued inpatient stay Substantial Risk for: inability to function, rapid decompensation and med/psych decompensation Time Spent With Patient Time: Total time managing care of this patient today ___20_ minutes.
[2022-06-22 18:00] VITALS: BP 126/71; PULSE 86; TEMP 36.3; O2SAT 96
[2022-06-22] MEDS: Mirtazapine 15 MG TABLET 45 MG PO (20:22)
[2022-06-23 08:00] VITALS: BP 143/70; PULSE 85; RESP 16; TEMP 36.4; O2SAT 97
[2022-06-23] MEDS: Magnesium Oxide 400 MG TABLET PO (08:03)
[2022-06-23] MEDS: Folic Acid 1 MG TABLET PO (08:03)
[2022-06-23] MEDS: Thiamine HCL 100 MG TABLET PO (08:03)
[2022-06-23] MEDS: Naltrexone HCl 50 MG TABLET PO (08:03)
[2022-06-23] MEDS: HaloperidoL 1 MG TABLET 2 MG PO (08:03)
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
== END 2022-06-23 10:15 | disposition home or self-care (01) | DRG 885 ==
PROVIDERS: Family Medicine; Psychiatry & Neurology Psychiatry; Admitting Provider Psychiatry & Neurology Psychiatry; Visit Provider Psychiatry & Neurology Psychiatry
DX: F33.2 Major depressive disorder, recurrent severe without psychotic features (principal); R45.851 Suicidal ideations; F10.20 Alcohol dependence, uncomplicated; Z79.899 Other long term (current) drug therapy
CPT/HCPCS: 36415; 80048; 80053; 80061; 80076; 82977; 83735; 85027

== ENCOUNTER 2022-07-19 12:03 | Outpatient (REF) | payer MEDICARE, MEDICAID, SELFPAY ==
--- NOTE | ~2022-07-19 | XR_ITS ---
EXAMINATION: XR KNEE, RIGHT CLINICAL INFORMATION: Reason for Exam M25.561 - Pain in right knee COMPARISON: Knee radiographs 05/15/2022 TECHNIQUE: 2 views of the knee FINDINGS: No acute fracture or dislocation. Advanced degenerative changes of the knee with complete loss of medial compartment joint space and bulky medial and patellofemoral compartment osteophytes. Mild valgus angulation of the knee. Findings are similar to prior. Moderate suprapatellar joint effusion. Soft tissues are unremarkable. XR/XR knee RT 2V IMPRESSION: * No acute osseous abnormality. * Advanced degenerative changes of the knee with valgus angulation similar to prior. Moderate suprapatellar joint effusion.
[2022-07-19 13:40] LABS: Alanine Aminotransferase 101 U/L (0-31); Albumin Level 3.9 g/dL (3.5-5.0); Alkaline Phosphatase 71 U/L (39-117); Anion Gap 11 (12-20); Aspartate Amino Transferase 106 U/L (5-31); Bilirubin Total 0.7 mg/dL (0.0-1.0); Blood Urea Nitrogen 11 mg/dL (9-16); Calcium 9.3 mg/dL (8.4-10.2); Carbon Dioxide 26 mmol/L (22-29); Chloride 111 mmol/L (96-108); Estimated Glomerular Filt Rate > 60; Glucose Random 93 mg/dL (60-115); Sodium 144 mmol/L (135-145); Total Protein 7.4 g/dL (6.5-8.0)
== END 2022-07-19 12:04 | disposition home or self-care (01) ==
LOC: HO.XRAY 12:03
PROVIDERS: PCP Internal Medicine; Visit Provider Physician Assistant
DX: M25.561 Pain in right knee (principal); E83.42 Hypomagnesemia; E87.6 Hypokalemia
CPT/HCPCS: 36415; 73560; 80053

== ENCOUNTER 2022-08-31 11:17 | Outpatient (REF) | payer MEDICARE, MEDICAID, SELFPAY | END 2022-08-31 11:18 | disposition home or self-care (01) | LOC: HO.HOSX 11:17 | PROVIDERS: Visit Provider Physician Assistant | DX: Z13.89 Encounter for screening for other disorder (principal) ==